=== PATIENT | female | born 1940 | race Caucasian/White ===

== ENCOUNTER → 2018-02-01 09:15 | Outpatient (CLI) | payer MEDICARE, SELFPAY ==
[2018-02-01 13:12] LABS: Absolute Neutrophil Count 3.2 X10^3/uL (2.0-7.7); Basophil# 0.03 X10^3/uL; Basophil% 0.5 % (0-1); Eosinophil# 0.25 X10^3/uL; Eosinophils% 4.4 % (0-5); Hemoglobin 13.1 g/dl (12.0-15.0); Mean Corp Hgb Conc 33.6 g/gl (32-36); Mean Corpuscular Hgb 31.7 pg (27.0-32.0); Mean Corpuscular Volume 94.4 fL (81-99); Mean Platelet Vol. 10.4 fl (6.2-12.0); Monocyte# 0.49 X10^3/uL; Monocyte% 8.7 % (0-10); Neutrophil # 3.17 X10^3/uL (2.7-7.7); POSITIVE COUNT NO; POSITIVE DIFFERENTIAL NO; POSITIVE MORPHOLOGY NO; Platelet Count 267 K/mm3 (150-450); RBC Distribution Width CV 12.1 % (11.6-14.6); Red Blood Count 4.13 M/mm3 (4.2-5.4); White Blood Count 5.7 K/mm3 (4.4-11.0)
[2018-02-01 13:46] LABS: ALB/GLOB Ratio 1.1 RATIO (0.9-2.4); AST(SGOT) 21 U/L (15-37); Alanine Aminotransfer ALT/SGPT 23 U/L (13-56); Albumin, Serum 3.7 g/dL (3.2-5.0); Alkaline Phosphatase 61 U/L (45-117); Anion Gap 8 (5-15); BUN 19 mg/dL (7-18); BUN/Creat Ratio 29.2 RATIO (10-20); Calcium,Total 8.5 mg/dL (8.5-10.1); Chloride 108 mmol/L (98-107); Creatinine, Serum 0.65 mg/dL (0.55-1.02); EST Glomerular Filtration Rate 93 mL/min (>60); Est Glom Filt Rate - Afr Amer 113 mL/min (>60); Globulin 3.4 g/dL (2.2-4.2); Glucose 84 mg/dL (74-106); Potassium 4.3 mmol/L (3.5-5.1); Protein, Total 7.1 g/dL (6.4-8.2); Sodium Level 143 mmol/L (136-145); Thyroid Stim Hormone (TSH) 1.55 uIU/mL (0.358-3.74); Vitamin D,25 Hydroxy 51.7 ng/mL (29.95-100.01)
== END ==
PROVIDERS: Family Provider Family Medicine Geriatric Medicine; PCP Family Medicine Geriatric Medicine; Visit Provider Family Medicine Geriatric Medicine
DX: I10 Essential (primary) hypertension (principal); E55.9 Vitamin D deficiency, unspecified
CPT/HCPCS: 36415; 80053; 82306; 84443; 85025

== ENCOUNTER → 2018-08-07 09:50 | Outpatient (CLI) | payer MEDICARE, SELFPAY ==
[2018-08-07 12:15] LABS: Absolute Lymphocyte Count 2.07 X10^3/ul (0.83-4.51); Absolute Neutrophil Count 2.7 X10^3/uL (2.0-7.7); Basophil# 0.02 X10^3/uL; Basophil% 0.4 % (0-1); Eosinophil# 0.29 X10^3/uL; Eosinophils% 5.2 % (0-5); Hemoglobin 13.7 g/dl (12.0-15.0); Lymphocyte # 2.07 X10^3/ul (4.0); Lymphocyte % 37.4 % (19-41); Mean Corp Hgb Conc 34.3 g/gl (32-36); Mean Corpuscular Hgb 32.2 pg (27.0-32.0); Mean Corpuscular Volume 94.1 fL (81-99); Mean Platelet Vol. 10.3 fl (6.2-12.0); Monocyte# 0.44 X10^3/uL; Monocyte% 7.9 % (0-10); Neutrophil # 2.71 X10^3/uL (2.7-7.7); Neutrophil % 48.9 % (47-70); Platelet Count 246 K/mm3 (150-450); RBC Distribution Width CV 12.5 % (11.6-14.6); RBC Distribution Width SD 42.1 fl (35.1-43.9); Red Blood Count 4.25 M/mm3 (4.2-5.4); White Blood Count 5.5 K/mm3 (4.4-11.0)
[2018-08-07 12:22] LABS: POSITIVE COUNT NO; POSITIVE DIFFERENTIAL NO; POSITIVE MORPHOLOGY NO
[2018-08-07 12:46] LABS: AST(SGOT) 19 U/L (15-37); Alanine Aminotransfer ALT/SGPT 21 U/L (13-56); Albumin, Serum 3.6 g/dL (3.2-5.0); Alkaline Phosphatase 57 U/L (45-117); Anion Gap 8 (5-15); BUN 18 mg/dL (7-18); BUN/Creat Ratio 25.3 RATIO (10-20); Calcium,Total 8.7 mg/dL (8.5-10.1); Chloride 108 mmol/L (98-107); Creatinine, Serum 0.71 mg/dL (0.55-1.02); EST Glomerular Filtration Rate 84 mL/min (>60); Est Glom Filt Rate - Afr Amer 101 mL/min (>60); Globulin 3.5 g/dL (2.2-4.2); Glucose 108 mg/dL (74-106); Potassium 3.8 mmol/L (3.5-5.1); Protein, Total 7.1 g/dL (6.4-8.2); Sodium Level 142 mmol/L (136-145)
[2018-08-07 12:48] LABS: Vitamin D,25 Hydroxy 54.9 ng/mL (29.95-100.01)
== END ==
PROVIDERS: Family Provider Family Medicine Geriatric Medicine; PCP Family Medicine Geriatric Medicine; Visit Provider Family Medicine Geriatric Medicine
DX: E55.9 Vitamin D deficiency, unspecified (principal); I10 Essential (primary) hypertension
CPT/HCPCS: 36415; 80053; 82306; 84443; 85025

== ENCOUNTER → 2019-02-05 11:31 | Outpatient (CLI) | payer MEDICARE, SELFPAY ==
[2019-02-05 12:48] LABS: Absolute Lymphocyte Count 1.58 X10^3/ul (0.83-4.51); Absolute Neutrophil Count 2.6 X10^3/uL (2.0-7.7); Basophil# 0.02 X10^3/uL; Basophil% 0.4 % (0-1); Eosinophil# 0.17 X10^3/uL; Eosinophils% 3.5 % (0-5); Hematocrit 37.5 % (37-47); Hemoglobin 12.6 g/dl (12.0-15.0); Lymphocyte # 1.58 X10^3/ul (4.0); Lymphocyte % 32.6 % (19-41); Mean Corp Hgb Conc 33.6 g/gl (32-36); Mean Corpuscular Hgb 31.4 pg (27.0-32.0); Mean Corpuscular Volume 93.5 fL (81-99); Mean Platelet Vol. 10.1 fl (6.2-12.0); Monocyte# 0.47 X10^3/uL; Monocyte% 9.7 % (0-10); Neutrophil % 53.6 % (47-70); Platelet Count 247 K/mm3 (150-450); RBC Distribution Width CV 12.7 % (11.6-14.6); RBC Distribution Width SD 43.4 fl (35.1-43.9); Red Blood Count 4.01 M/mm3 (4.2-5.4); White Blood Count 4.9 K/mm3 (4.4-11.0)
[2019-02-05 12:53] LABS: Vitamin D,25 Hydroxy 51.3 ng/mL (29.95-100.01)
[2019-02-05 12:54] LABS: POSITIVE COUNT NO; POSITIVE DIFFERENTIAL NO; POSITIVE MORPHOLOGY NO
[2019-02-05 13:10] LABS: ALB/GLOB Ratio 1.1 RATIO (0.9-2.4); AST(SGOT) 26 U/L (15-37); Alanine Aminotransfer ALT/SGPT 23 U/L (13-56); Albumin, Serum 3.6 g/dL (3.2-5.0); Alkaline Phosphatase 75 U/L (45-117); Anion Gap 4 (5-15); BUN 20 mg/dL (7-18); BUN/Creat Ratio 31.3 RATIO (10-20); Calcium,Total 8.8 mg/dL (8.5-10.1); Chloride 112 mmol/L (98-107); Creatinine, Serum 0.64 mg/dL (0.55-1.02); EST Glomerular Filtration Rate 95 mL/min (>60); Est Glom Filt Rate - Afr Amer 115 mL/min (>60); Globulin 3.2 g/dL (2.2-4.2); Glucose 71 mg/dL (74-106); Potassium 3.6 mmol/L (3.5-5.1); Protein, Total 6.8 g/dL (6.4-8.2); Sodium Level 145 mmol/L (136-145); Thyroid Stim Hormone (TSH) 1.61 uIU/mL (0.358-3.74)
== END ==
PROVIDERS: Family Provider Family Medicine Geriatric Medicine; PCP Family Medicine Geriatric Medicine; Referring Provider Family Medicine Geriatric Medicine; Visit Provider Family Medicine Geriatric Medicine
DX: R50.9 Fever, unspecified (principal); I10 Essential (primary) hypertension; E55.9 Vitamin D deficiency, unspecified
CPT/HCPCS: 36415; 80053; 82306; 84443; 85025; 87633

== ENCOUNTER → 2019-08-09 09:20 | Outpatient (CLI) | payer MEDICARE, SELFPAY ==
[2019-08-09 12:52] LABS: Absolute Lymphocyte Count 1.34 X10^3/uL (0.83-4.51); Absolute Neutrophil Count 3.1 X10^3/uL (2.0-7.7); Basophil# 0.03 X10^3/uL; Basophil% 0.6 % (0-1); Eosinophil# 0.09 X10^3/uL; Eosinophils% 1.8 % (0-5); Hematocrit 38.9 % (37-47); Hemoglobin 13.1 g/dL (12.0-15.0); Lymphocyte # 1.34 X10^3/ul (4.0); Lymphocyte % 27.3 % (19-41); Mean Corp Hgb Conc 33.7 g/dL (32-36); Mean Corpuscular Hgb 32.1 pg (27.0-32.0); Mean Corpuscular Volume 95.3 fL (81-99); Mean Platelet Vol. 10.3 fl (6.2-12.0); Monocyte# 0.31 X10^3/uL; Monocyte% 6.3 % (0-10); NRBC Flagged by Analyzer 0 % (0-5); Neutrophil # 3.13 X10^3/uL (2.7-7.7); Neutrophil % 63.8 % (47-70); Platelet Count 217 K/mm3 (150-450); RBC Distribution Width CV 12.1 % (11.6-14.6); RBC Distribution Width SD 42.5 fl (35.1-43.9); Red Blood Count 4.08 M/mm3 (4.2-5.4); White Blood Count 4.9 K/mm3 (4.4-11.0)
[2019-08-09 13:32] LABS: Vitamin D,25 Hydroxy 67.6 ng/mL (29.95-100.01)
[2019-08-09 13:40] LABS: ALB/GLOB Ratio 1.1 RATIO (0.9-2.4); AST(SGOT) 19 U/L (15-37); Alanine Aminotransfer ALT/SGPT 18 U/L (13-56); Albumin, Serum 3.6 g/dL (3.2-5.0); Alkaline Phosphatase 54 U/L (45-117); Anion Gap 7 (5-15); BUN 22 mg/dL (7-18); Calcium,Total 8.7 mg/dL (8.5-10.1); Chloride 111 mmol/L (98-107); Creatinine, Serum 0.79 mg/dL (0.55-1.02); EST Glomerular Filtration Rate 75 mL/min (>60); Est Glom Filt Rate - Afr Amer 90 mL/min (>60); Globulin 3.2 g/dL (2.2-4.2); Glucose 102 mg/dL (74-106); Potassium 3.8 mmol/L (3.5-5.1); Protein, Total 6.8 g/dL (6.4-8.2); Sodium Level 144 mmol/L (136-145); Thyroid Stim Hormone (TSH) 1.58 uIU/mL (0.358-3.74)
== END ==
PROVIDERS: Family Provider Family Medicine Geriatric Medicine; PCP Family Medicine Geriatric Medicine; Visit Provider Family Medicine Geriatric Medicine
DX: I10 Essential (primary) hypertension (principal); E55.9 Vitamin D deficiency, unspecified
CPT/HCPCS: 36415; 80053; 82306; 84443; 85025

== ENCOUNTER → 2020-11-20 10:57 | Outpatient (CLI) | payer MEDICARE, SELFPAY ==
[2020-11-20 12:09] LABS: Absolute Lymphocyte Count 1.63 X10^3/uL (0.83-4.51); Absolute Neutrophil Count 2.9 X10^3/uL (2.0-7.7); Basophil# 0.03 X10^3/uL; Basophil% 0.6 % (0-1); Eosinophil# 0.13 X10^3/uL; Eosinophils% 2.5 % (0-5); Hematocrit 38.1 % (37-47); Lymphocyte # 1.63 X10^3/ul (4.0); Lymphocyte % 31.8 % (19-41); Mean Corp Hgb Conc 34.1 g/dL (32-36); Mean Corpuscular Hgb 32.3 pg (27.0-32.0); Mean Corpuscular Volume 94.5 fL (81-99); Mean Platelet Vol. 10.6 fl (6.2-12.0); Monocyte# 0.43 X10^3/uL; Monocyte% 8.4 % (0-10); NRBC Flagged by Analyzer 0 % (0-5); Neutrophil % 56.7 % (47-70); Platelet Count 232 K/mm3 (150-450); Red Blood Count 4.03 M/mm3 (4.2-5.4); White Blood Count 5.1 K/mm3 (4.4-11.0)
[2020-11-20 12:47] LABS: ALB/GLOB Ratio 1.3 RATIO (0.9-2.4); AST(SGOT) 17 U/L (15-37); Alanine Aminotransfer ALT/SGPT 17 U/L (13-56); Albumin, Serum 3.8 g/dL (3.2-5.0); Alkaline Phosphatase 54 U/L (45-117); Anion Gap 8 (5-15); BUN 19 mg/dL (7-18); BUN/Creat Ratio 25.9 RATIO (10-20); Chloride 110 mmol/L (98-107); Creatinine, Serum 0.73 mg/dL (0.55-1.02); EST Glomerular Filtration Rate 81 mL/min (>60); Est Glom Filt Rate - Afr Amer 98 mL/min (>60); Globulin 2.9 g/dL (2.2-4.2); Glucose 79 mg/dL (74-106); Potassium 3.4 mmol/L (3.5-5.1); Protein, Total 6.7 g/dL (6.4-8.2); Sodium Level 142 mmol/L (136-145); Thyroid Stim Hormone (TSH) 1.65 uIU/mL (0.358-3.74)
== END ==
PROVIDERS: PCP Family Medicine Geriatric Medicine; Visit Provider Family Medicine Geriatric Medicine
DX: I10 Essential (primary) hypertension (principal); E55.9 Vitamin D deficiency, unspecified
CPT/HCPCS: 36415; 80053; 82306; 84443; 85025

== ENCOUNTER → 2021-06-17 10:47 | Outpatient (CLI) | payer MEDICARE, SELFPAY ==
[2021-06-17 11:24] LABS: Absolute Lymphocyte Count 1.59 X10^3/uL (0.83-4.51); Absolute Neutrophil Count 3.8 X10^3/uL (2.0-7.7); Basophil# 0.03 X10^3/uL; Basophil% 0.5 % (0-1); Eosinophil# 0.12 X10^3/uL; Hematocrit 40.8 % (37-47); Hemoglobin 13.7 g/dL (12.0-15.0); Lymphocyte # 1.59 X10^3/ul (0.83-4.51); Lymphocyte % 26.5 % (19-41); Mean Corp Hgb Conc 33.6 g/dL (32-36); Mean Corpuscular Hgb 31.8 pg (27.0-32.0); Mean Corpuscular Volume 94.7 fL (81-99); Mean Platelet Vol. 9.8 fl (6.2-12.0); Monocyte# 0.43 X10^3/uL; Monocyte% 7.2 % (0-10); NRBC Flagged by Analyzer 0 % (0-5); Neutrophil # 3.83 X10^3/uL (2.7-7.7); Neutrophil % 63.6 % (47-70); Platelet Count 234 K/mm3 (150-450); RBC Distribution Width CV 12.1 % (11.6-14.6); RBC Distribution Width SD 42.3 fl (35.1-43.9); Red Blood Count 4.31 M/mm3 (4.2-5.4)
[2021-06-17 12:03] LABS: Vitamin D,25 Hydroxy 45.4 ng/mL
[2021-06-17 12:08] LABS: ALB/GLOB Ratio 1.2 RATIO (0.9-2.4); AST(SGOT) 21 U/L (15-37); Alanine Aminotransfer ALT/SGPT 21 U/L (13-56); Albumin, Serum 3.8 g/dL (3.2-5.0); Alkaline Phosphatase 60 U/L (45-117); Anion Gap 6 (5-15); BUN 18 mg/dL (7-18); BUN/Creat Ratio 26.8 RATIO (10-20); Calcium,Total 8.9 mg/dL (8.5-10.1); Chloride 108 mmol/L (98-107); Creatinine, Serum 0.67 mg/dL (0.55-1.02); EST Glomerular Filtration Rate 89 mL/min (>60); Est Glom Filt Rate - Afr Amer 108 mL/min (>60); Globulin 3.2 g/dL (2.2-4.2); Glucose 101 mg/dL (74-106); Potassium 4.1 mmol/L (3.5-5.1); Sodium Level 140 mmol/L (136-145); Thyroid Stim Hormone (TSH) 1.48 uIU/mL (0.358-3.74)
== END ==
PROVIDERS: PCP Family Medicine Geriatric Medicine; Visit Provider Family Medicine Geriatric Medicine
DX: E55.9 Vitamin D deficiency, unspecified (principal); I10 Essential (primary) hypertension; E87.6 Hypokalemia
CPT/HCPCS: 36415; 80053; 82306; 84443; 85025

== ENCOUNTER 2021-12-16 09:05 | Outpatient (CLI) | payer MEDICARE, SELFPAY ==
[2021-12-16 12:07] LABS: Absolute Lymphocyte Count 2.17 X10^3/uL (0.83-4.51); Absolute Neutrophil Count 3.3 X10^3/uL (2.0-7.7); Basophil# 0.03 X10^3/uL; Basophil% 0.5 % (0-1); Eosinophil# 0.12 X10^3/uL; Hemoglobin 13.9 g/dL (12.0-15.0); Lymphocyte # 2.17 X10^3/ul (0.83-4.51); Lymphocyte % 35.9 % (19-41); Mean Corp Hgb Conc 34.8 g/dL (32-36); Mean Corpuscular Hgb 32.7 pg (27.0-32.0); Mean Corpuscular Volume 94.1 fL (81-99); Mean Platelet Vol. 9.9 fl (6.2-12.0); Monocyte# 0.45 X10^3/uL; Monocyte% 7.4 % (0-10); NRBC Flagged by Analyzer 0 % (0-5); Neutrophil # 3.26 X10^3/uL (2.7-7.7); Neutrophil % 53.9 % (47-70); Platelet Count 257 K/mm3 (150-450); RBC Distribution Width CV 11.9 % (11.6-14.6); RBC Distribution Width SD 41.1 fl (35.1-43.9); Red Blood Count 4.25 M/mm3 (4.2-5.4); White Blood Count 6.1 K/mm3 (4.4-11.0)
[2021-12-16 12:12] LABS: Vitamin D,25 Hydroxy 39.5 ng/mL
[2021-12-16 12:16] LABS: ALB/GLOB Ratio 1.2 RATIO (0.9-2.4); AST(SGOT) 23 U/L (15-37); Alanine Aminotransfer ALT/SGPT 19 U/L (13-56); Albumin, Serum 3.7 g/dL (3.2-5.0); Alkaline Phosphatase 59 U/L (45-117); Anion Gap 6 (5-15); BUN 19 mg/dL (7-18); BUN/Creat Ratio 23.5 RATIO (10-20); Calcium,Total 8.9 mg/dL (8.5-10.1); Chloride 107 mmol/L (98-107); Creatinine, Serum 0.81 mg/dL (0.55-1.02); EST Glomerular Filtration Rate 72 mL/min (>60); Est Glom Filt Rate - Afr Amer 87 mL/min (>60); Globulin 3.2 g/dL (2.2-4.2); Glucose 109 mg/dL (74-106); Potassium 3.8 mmol/L (3.5-5.1); Protein, Total 6.9 g/dL (6.4-8.2); Sodium Level 141 mmol/L (136-145); Thyroid Stim Hormone (TSH) 1.15 uIU/mL (0.358-3.74)
== END 2021-12-16 23:59 | disposition home or self-care (01) ==
LOC: POLAB3 09:06
PROVIDERS: PCP Family Medicine Geriatric Medicine; Visit Provider Family Medicine Geriatric Medicine
DX: I10 Essential (primary) hypertension (principal); E55.9 Vitamin D deficiency, unspecified
CPT/HCPCS: 36415; 80053; 82306; 84443; 85025

== ENCOUNTER → 2022-07-07 | Outpatient (CLI) | payer MEDICARE, SELFPAY ==
[2022-07-07 12:27] LABS: Absolute Lymphocyte Count 1.97 X10^3/uL (0.83-4.51); Absolute Neutrophil Count 2.7 X10^3/uL (2.0-7.7); Basophil# 0.03 X10^3/uL; Basophil% 0.6 % (0-1); Eosinophil# 0.15 X10^3/uL; Eosinophils% 2.8 % (0-5); Hematocrit 37.9 % (37-47); Hemoglobin 12.8 g/dL (12.0-15.0); Lymphocyte # 1.97 X10^3/ul (0.83-4.51); Lymphocyte % 36.6 % (19-41); Mean Corp Hgb Conc 33.8 g/dL (32-36); Mean Corpuscular Hgb 32.3 pg (27.0-32.0); Mean Corpuscular Volume 95.7 fL (81-99); Mean Platelet Vol. 10.2 fl (6.2-12.0); Monocyte# 0.47 X10^3/uL; Monocyte% 8.7 % (0-10); NRBC Flagged by Analyzer 0 % (0-5); Neutrophil # 2.74 X10^3/uL (2.7-7.7); Neutrophil % 50.9 % (47-70); Platelet Count 218 K/mm3 (150-450); RBC Distribution Width CV 11.8 % (11.6-14.6); RBC Distribution Width SD 41.6 fl (35.1-43.9); Red Blood Count 3.96 M/mm3 (4.2-5.4); White Blood Count 5.4 K/mm3 (4.4-11.0)
[2022-07-07 12:33] LABS: Vitamin D,25 Hydroxy 32.7 ng/mL
[2022-07-07 12:46] LABS: ALB/GLOB Ratio 1.2 RATIO (0.9-2.4); AST(SGOT) 18 U/L (15-37); Alanine Aminotransfer ALT/SGPT 17 U/L (13-56); Albumin, Serum 3.5 g/dL (3.2-5.0); Alkaline Phosphatase 50 U/L (45-117); Anion Gap 5 (5-15); BUN 17 mg/dL (7-18); BUN/Creat Ratio 21.9 RATIO (10-20); Calcium,Total 9.4 mg/dL (8.5-10.1); Chloride 109 mmol/L (98-107); Creatinine, Serum 0.78 mg/dL (0.55-1.02); EST Glomerular Filtration Rate 75 mL/min (>60); Est Glom Filt Rate - Afr Amer 91 mL/min (>60); Glucose 96 mg/dL (74-106); Potassium 3.7 mmol/L (3.5-5.1); Protein, Total 6.5 g/dL (6.4-8.2); Sodium Level 143 mmol/L (136-145); Thyroid Stim Hormone (TSH) 1.46 uIU/mL (0.358-3.74)
== END | disposition home or self-care (01) ==
LOC: POLAB3 09:23
PROVIDERS: PCP Family Medicine Geriatric Medicine; Visit Provider Family Medicine Geriatric Medicine
DX: E55.9 Vitamin D deficiency, unspecified (principal); I10 Essential (primary) hypertension
CPT/HCPCS: 36415; 80053; 82306; 84443; 85025

== ENCOUNTER → 2023-01-05 | Outpatient (CLI) | payer MEDICARE, SELFPAY ==
[2023-01-05 13:30] LABS: Absolute Neutrophil Count 2.9 X10^3/uL (2.0-7.7); Basophil# 0.03 X10^3/uL; Basophil% 0.6 % (0-1); Eosinophil# 0.14 X10^3/uL; Eosinophils% 2.7 % (0-5); Hemoglobin 13.3 g/dL (12.0-15.0); Lymphocyte % 34.1 % (19-41); Mean Corp Hgb Conc 33.3 g/dL (32-36); Mean Corpuscular Hgb 31.9 pg (27.0-32.0); Mean Corpuscular Volume 95.9 fL (81-99); Mean Platelet Vol. 9.8 fl (6.2-12.0); Monocyte# 0.42 X10^3/uL; NRBC Flagged by Analyzer 0 % (0-5); Neutrophil # 2.88 X10^3/uL (2.7-7.7); Neutrophil % 54.4 % (47-70); Platelet Count 249 K/mm3 (150-450); RBC Distribution Width CV 12.1 % (11.6-14.6); RBC Distribution Width SD 42.6 fl (35.1-43.9); Red Blood Count 4.17 M/mm3 (4.2-5.4); White Blood Count 5.3 K/mm3 (4.4-11.0)
[2023-01-05 13:38] LABS: Vitamin D,25 Hydroxy 72.3 ng/mL
[2023-01-05 13:51] LABS: ALB/GLOB Ratio 1.1 RATIO (0.9-2.4); AST(SGOT) 19 U/L (15-37); Alanine Aminotransfer ALT/SGPT 17 U/L (13-56); Albumin, Serum 3.5 g/dL (3.2-5.0); Alkaline Phosphatase 58 U/L (45-117); Anion Gap 7 (5-15); BUN 17 mg/dL (7-18); BUN/Creat Ratio 20.9 RATIO (10-20); Calcium,Total 9.1 mg/dL (8.5-10.1); Chloride 110 mmol/L (98-107); Creatinine, Serum 0.82 mg/dL (0.55-1.02); EST Glomerular Filtration Rate 71 mL/min (>60); Est Glom Filt Rate - Afr Amer 86 mL/min (>60); Globulin 3.2 g/dL (2.2-4.2); Glucose 94 mg/dL (74-106); Potassium 3.5 mmol/L (3.5-5.1); Protein, Total 6.7 g/dL (6.4-8.2); Sodium Level 144 mmol/L (136-145); Thyroid Stim Hormone (TSH) 2.12 uIU/mL (0.358-3.74)
== END | disposition home or self-care (01) ==
LOC: POLAB3 11:20
PROVIDERS: PCP Family Medicine Geriatric Medicine; Visit Provider Family Medicine Geriatric Medicine
DX: E55.9 Vitamin D deficiency, unspecified (principal); I10 Essential (primary) hypertension
CPT/HCPCS: 36415; 80053; 82306; 84443; 85025

== ENCOUNTER → 2023-07-13 | Outpatient (CLI) | payer MEDICARE, SELFPAY ==
[2023-07-13 12:21] LABS: Absolute Lymphocyte Count 1.84 X10^3/uL (0.83-4.51); Basophil# 0.04 X10^3/uL; Basophil% 0.7 % (0-1); Eosinophil# 0.15 X10^3/uL; Eosinophils% 2.7 % (0-5); Hematocrit 37.8 % (37-47); Hemoglobin 12.3 g/dL (12.0-15.0); Lymphocyte # 1.84 X10^3/ul (0.83-4.51); Lymphocyte % 33.4 % (19-41); Mean Corp Hgb Conc 32.5 g/dL (32-36); Mean Corpuscular Hgb 31.5 pg (27.0-32.0); Mean Corpuscular Volume 96.7 fL (81-99); Mean Platelet Vol. 9.9 fl (6.2-12.0); Monocyte# 0.47 X10^3/uL; Monocyte% 8.5 % (0-10); NRBC Flagged by Analyzer 0 % (0-5); Neutrophil % 54.5 % (47-70); Platelet Count 231 K/mm3 (150-450); RBC Distribution Width CV 12.5 % (11.6-14.6); RBC Distribution Width SD 43.7 fl (35.1-43.9); Red Blood Count 3.91 M/mm3 (4.2-5.4); White Blood Count 5.5 K/mm3 (4.4-11.0)
[2023-07-13 13:01] LABS: Vitamin D,25 Hydroxy 79.8 ng/mL
[2023-07-13 13:07] LABS: ALB/GLOB Ratio 1.1 RATIO (0.9-2.4); AST(SGOT) 18 U/L (15-37); Alanine Aminotransfer ALT/SGPT 19 U/L (13-56); Albumin, Serum 3.4 g/dL (3.2-5.0); Alkaline Phosphatase 50 U/L (45-117); Anion Gap 4 (5-15); BUN 13 mg/dL (7-18); BUN/Creat Ratio 18.7 RATIO (10-20); Calcium,Total 8.8 mg/dL (8.5-10.1); Chloride 111 mmol/L (98-107); EST Glomerular Filtration Rate 85 mL/min (>60); Est Glom Filt Rate - Afr Amer 103 mL/min (>60); Globulin 3.2 g/dL (2.2-4.2); Glucose 100 mg/dL (74-106); Potassium 3.9 mmol/L (3.5-5.1); Protein, Total 6.6 g/dL (6.4-8.2); Sodium Level 141 mmol/L (136-145); Thyroid Stim Hormone (TSH) 2.17 uIU/mL (0.358-3.74)
== END | disposition home or self-care (01) ==
PROVIDERS: PCP Family Medicine Geriatric Medicine; Visit Provider Family Medicine Geriatric Medicine
DX: E55.9 Vitamin D deficiency, unspecified (principal); I10 Essential (primary) hypertension
CPT/HCPCS: 36415; 80053; 82306; 84443; 85025

== ENCOUNTER → 2024-02-13 | Outpatient (CLI) | payer MEDICARE, SELFPAY ==
[2024-02-13 15:47] LABS: Absolute Lymphocyte Count 1.78 X10^3/uL (0.83-4.51); Absolute Neutrophil Count 3.2 X10^3/uL (2.0-7.7); Basophil# 0.04 X10^3/uL; Basophil% 0.7 % (0-1); Eosinophil# 0.22 X10^3/uL; Eosinophils% 3.9 % (0-5); Hemoglobin 12.6 g/dL (12.0-15.0); Lymphocyte # 1.78 X10^3/ul (0.83-4.51); Lymphocyte % 31.7 % (19-41); Mean Corp Hgb Conc 34.1 g/dL (32-36); Mean Corpuscular Volume 93.9 fL (81-99); Mean Platelet Vol. 9.5 fl (6.2-12.0); Monocyte# 0.36 X10^3/uL; Monocyte% 6.4 % (0-10); NRBC Flagged by Analyzer 0 % (0-5); Neutrophil # 3.21 X10^3/uL (2.7-7.7); Neutrophil % 57.1 % (47-70); Platelet Count 243 K/mm3 (150-450); RBC Distribution Width CV 12.2 % (11.6-14.6); RBC Distribution Width SD 42.6 fl (35.1-43.9); Red Blood Count 3.94 M/mm3 (4.2-5.4); White Blood Count 5.6 K/mm3 (4.4-11.0)
[2024-02-13 16:24] LABS: Vitamin D,25 Hydroxy 78.6 ng/mL
[2024-02-13 16:32] LABS: ALB/GLOB Ratio 1.1 RATIO (0.9-2.4); AST(SGOT) 17 U/L (15-37); Alanine Aminotransfer ALT/SGPT 13 U/L (13-56); Albumin, Serum 3.4 g/dL (3.2-5.0); Alkaline Phosphatase 56 U/L (45-117); Anion Gap 4 (5-15); BUN 17 mg/dL (7-18); BUN/Creat Ratio 18.7 RATIO (10-20); Calcium,Total 9.2 mg/dL (8.5-10.1); Chloride 111 mmol/L (98-107); Cholesterol 228 mg/dL (200); Creatinine, Serum 0.91 mg/dL (0.55-1.02); EST Glomerular Filtration Rate 62 mL/min (>60); Est Glom Filt Rate - Afr Amer 75 mL/min (>60); Globulin 3.1 g/dL (2.2-4.2); Glucose 105 mg/dL (74-106); High Density Lipoprotein 56 mg/dL; Protein, Total 6.5 g/dL (6.4-8.2); Sodium Level 143 mmol/L (136-145); Thyroid Stim Hormone (TSH) 1.38 uIU/mL (0.358-3.74); Triglycerides 123 mg/dL; Very Low Density Lipoprotein 25 mg/dL (5-40)
== END | disposition home or self-care (01) ==
LOC: LAB 15:09
PROVIDERS: PCP Family Medicine Geriatric Medicine; Referring Provider Family Medicine Geriatric Medicine; Visit Provider Family Medicine Geriatric Medicine
DX: I10 Essential (primary) hypertension (principal); E55.9 Vitamin D deficiency, unspecified; E78.5 Hyperlipidemia, unspecified
CPT/HCPCS: 36415; 80053; 80061; 82306; 84443; 85025

== ENCOUNTER → 2024-08-02 | Outpatient (CLI) | payer MEDICARE, SELFPAY ==
[2024-08-02 12:03] LABS: Absolute Lymphocyte Count 2.89 X10^3/uL (0.83-4.51); Absolute Neutrophil Count 3.5 X10^3/uL (2.0-7.7); Basophil# 0.05 X10^3/uL; Basophil% 0.7 % (0-1); Eosinophil# 0.12 X10^3/uL; Eosinophils% 1.7 % (0-5); Hematocrit 40.4 % (37-47); Hemoglobin 13.6 g/dL (12.0-15.0); Lymphocyte # 2.89 X10^3/ul (0.83-4.51); Lymphocyte % 40.5 % (19-41); Mean Corp Hgb Conc 33.7 g/dL (32-36); Mean Corpuscular Hgb 31.9 pg (27.0-32.0); Mean Corpuscular Volume 94.8 fL (81-99); Mean Platelet Vol. 9.8 fl (6.2-12.0); Monocyte# 0.51 X10^3/uL; Monocyte% 7.2 % (0-10); NRBC Flagged by Analyzer 0 % (0-5); Neutrophil # 3.54 X10^3/uL (2.7-7.7); Neutrophil % 49.6 % (47-70); Platelet Count 264 K/mm3 (150-450); RBC Distribution Width CV 12.7 % (11.6-14.6); Red Blood Count 4.26 M/mm3 (4.2-5.4); White Blood Count 7.1 K/mm3 (4.4-11.0)
[2024-08-02 12:33] LABS: ALB/GLOB Ratio 1.1 RATIO (0.9-2.4); AST(SGOT) 16 U/L (15-37); Alanine Aminotransfer ALT/SGPT 13 U/L (13-56); Albumin, Serum 3.7 g/dL (3.2-5.0); Alkaline Phosphatase 64 U/L (45-117); Anion Gap 5 (5-15); BUN 24 mg/dL (7-18); BUN/Creat Ratio 29.6 RATIO (10-20); Calcium,Total 9.3 mg/dL (8.5-10.1); Chloride 112 mmol/L (98-107); Cholesterol 249 mg/dL (200); Creatinine, Serum 0.81 mg/dL (0.55-1.02); EST Glomerular Filtration Rate 71 mL/min (>60); Est Glom Filt Rate - Afr Amer 86 mL/min (>60); Globulin 3.3 g/dL (2.2-4.2); Glucose 104 mg/dL (74-106); High Density Lipoprotein 73 mg/dL; Potassium 3.7 mmol/L (3.5-5.1); Sodium Level 143 mmol/L (136-145); Triglycerides 166 mg/dL; Very Low Density Lipoprotein 33 mg/dL (5-40)
[2024-08-03 10:59] LABS: Vitamin D,25 Hydroxy 79.3 ng/mL
== END | disposition home or self-care (01) ==
LOC: POLAB3 11:49
PROVIDERS: PCP Family Medicine Geriatric Medicine; Visit Provider Family Medicine Geriatric Medicine
DX: I10 Essential (primary) hypertension (principal); E55.9 Vitamin D deficiency, unspecified; E78.5 Hyperlipidemia, unspecified
CPT/HCPCS: 36415; 80053; 80061; 82306; 84443; 85025

== ENCOUNTER → 2025-02-13 | Outpatient (CLI) | payer MEDICARE, SELFPAY ==
[2025-02-13 14:23] LABS: Absolute Lymphocyte Count 1.95 X10^3/uL (0.83-4.51); Absolute Neutrophil Count 4.7 X10^3/uL (2.0-7.7); Basophil# 0.04 X10^3/uL; Basophil% 0.5 % (0-1); Eosinophil# 0.14 X10^3/uL; Eosinophils% 1.9 % (0-5); Hematocrit 36.4 % (37-47); Hemoglobin 12.7 g/dL (12.0-15.0); Lymphocyte # 1.95 X10^3/ul (0.83-4.51); Lymphocyte % 26.7 % (19-41); Mean Corp Hgb Conc 34.9 g/dL (32-36); Mean Corpuscular Hgb 32.9 pg (27.0-32.0); Mean Corpuscular Volume 94.3 fL (81-99); Mean Platelet Vol. 9.7 fl (6.2-12.0); Monocyte# 0.44 X10^3/uL; NRBC Flagged by Analyzer 0 % (0-5); Neutrophil # 4.69 X10^3/uL (2.7-7.7); Neutrophil % 64.4 % (47-70); Platelet Count 240 K/mm3 (150-450); RBC Distribution Width CV 12.5 % (11.6-14.6); RBC Distribution Width SD 43.4 fl (35.1-43.9); Red Blood Count 3.86 M/mm3 (4.2-5.4); White Blood Count 7.3 K/mm3 (4.4-11.0)
[2025-02-13 19:03] LABS: AST(SGOT) 22 U/L (<=31); Alanine Aminotransfer ALT/SGPT 11 U/L (<=34); Alkaline Phosphatase 56 U/L (35-104); Calcium,Total 9.4 mg/dL (7.6-11.0); Carbon Dioxide 22.3 mmol/L (21.0-32.0); EST Glomerular Filtration Rate 57 (>60); Vitamin D,25 Hydroxy 87.1 ng/mL (30-100)
[2025-02-13 19:27] LABS: ALB/GLOB Ratio 1.7 RATIO (0.9-2.4); Anion Gap 14 (5-15); BUN 13 mg/dL (4-19); BUN/Creat Ratio 14.1 RATIO (10-20); Chloride 108 mmol/L (98-108); Cholesterol 230 mg/dL (<=200); Creatinine, Serum 0.92 mg/dL (0.70-1.20); Globulin 2.3 g/dL (2.2-4.2); Glucose 95 mg/dL (70-99); High Density Lipoprotein 58 mg/dL; Low Density Lipoprotein Calc. 151 mg/dL; Potassium 4.3 mmol/L (3.3-5.1); Protein, Total 6.3 g/dL (5.9-8.4); Sodium Level 144 mmol/L (133-145); Triglycerides 109 mg/dL; Very Low Density Lipoprotein 22 mg/dL (5-40); cholesterol:hdl ratio screen 3.99
== END | disposition home or self-care (01) ==
LOC: LAB 13:51
PROVIDERS: PCP Family Medicine Geriatric Medicine; Referring Provider Family Medicine Geriatric Medicine; Visit Provider Family Medicine Geriatric Medicine
DX: I10 Essential (primary) hypertension (principal); E55.9 Vitamin D deficiency, unspecified; E78.5 Hyperlipidemia, unspecified
CPT/HCPCS: 36415; 80053; 80061; 82306; 84443; 85025

== ENCOUNTER 2025-04-25 21:45 | Inpatient (IN) | payer MEDICARE, SELFPAY ==
[2025-04-25 21:46] VITALS: BP 154/71; PULSE 68; RESP 14; TEMP 36.6; O2SAT 100; BMI 21.5
--- NOTE | 2025-04-25 22:20 | CT_ITS ---
PROCEDURE: BRAIN/HEAD WITHOUT CONTRAST 04/25/2025 REASON FOR EXAM: INJURY TECHNIQUE: BRAIN/HEAD WITHOUT CONTRAST Coronal and Sagittal reconstruction series were provided. One or more dose reduction techniques were used (e.g., Automated exposure control, adjustment of the mA and/or kV according to patient size, use of iterative reconstruction technique. RADIATION DOSE SUMMARY: CTDlvol: 44.99 mGy DLP: 779.24 mGycm COMPARISON: None. FINDINGS: No acute intracranial hemorrhage, extra-axial collection, mass effect or acute territorial infarct. Moderate-advanced generalized brain parenchymal volume loss, and chronic small- vessel ischemic changes. Atherosclerotic calcification of the intracranial vasculature. Absent [place] ocular lenses. Large right frontal scalp hematoma/contusion. No underlying acute calvarial or skull base fracture. No radiodense foreign body. Well-aerated paranasal sinuses and bilateral mastoid air cells. Mild rightward nasal septal deviation with a left jacki bullosa. CT/Brain/Head without Contrast IMPRESSION: 1. No acute intracranial abnormality. 2. Large right frontal scalp hematoma/contusion. No calvarial fracture. 3. Moderate-advanced volume loss and chronic small-vessel ischemic changes. Reading Location: [id number]
--- NOTE | 2025-04-25 22:20 | CT_ITS ---
PROCEDURE: BRAIN/HEAD WITHOUT CONTRAST 04/25/2025 REASON FOR EXAM: INJURY TECHNIQUE: BRAIN/HEAD WITHOUT CONTRAST Coronal and Sagittal reconstruction series were provided. One or more dose reduction techniques were used (e.g., Automated exposure control, adjustment of the mA and/or kV according to patient size, use of iterative reconstruction technique. RADIATION DOSE SUMMARY: CTDlvol: 44.99 mGy DLP: 779.24 mGycm COMPARISON: None. FINDINGS: No acute intracranial hemorrhage, extra-axial collection, mass effect or acute territorial infarct. Moderate-advanced generalized brain parenchymal volume loss, and chronic small- vessel ischemic changes. Atherosclerotic calcification of the intracranial vasculature. Absent [place] ocular lenses. Large right frontal scalp hematoma/contusion. No underlying acute calvarial or skull base fracture. No radiodense foreign body. Well-aerated paranasal sinuses and bilateral mastoid air cells. Mild rightward nasal septal deviation with a left jacki bullosa. CT/Brain/Head without Contrast IMPRESSION: 1. No acute intracranial abnormality. 2. Large right frontal scalp hematoma/contusion. No calvarial fracture. 3. Moderate-advanced volume loss and chronic small-vessel ischemic changes. Reading Location: [id number]
--- NOTE | 2025-04-25 22:30 | RAD_ITS ---
PROCEDURE: HUMERUS MIN 2 VIEWS 04/25/2025 REASON FOR EXAM: INJURY TECHNIQUE: HUMERUS MIN 2 VIEWS COMPARISON: None. FINDINGS: Acute mildly comminuted and impacted fracture of the left humeral head and surgical neck, with nondisplaced fracture involving the greater tuberosity. No dislocation. Left glenohumeral and AC joints are intact. Qualitative osteopenia. No aggressive osseous lesion. Soft tissue swelling about the left shoulder. RAD/Humerus min 2 Views IMPRESSION: Acute comminuted and impacted fracture of the left humeral head and surgical ne ck. Reading Location: [id number]
--- NOTE | 2025-04-25 22:30 | RAD_ITS ---
PROCEDURE: HUMERUS MIN 2 VIEWS 04/25/2025 REASON FOR EXAM: INJURY TECHNIQUE: HUMERUS MIN 2 VIEWS COMPARISON: None. FINDINGS: Acute mildly comminuted and impacted fracture of the left humeral head and surgical neck, with nondisplaced fracture involving the greater tuberosity. No dislocation. Left glenohumeral and AC joints are intact. Qualitative osteopenia. No aggressive osseous lesion. Soft tissue swelling about the left shoulder. RAD/Humerus min 2 Views IMPRESSION: Acute comminuted and impacted fracture of the left humeral head and surgical ne ck. Reading Location: [id number]
--- NOTE | 2025-04-25 22:30 | RAD_ITS ---
PROCEDURE: HUMERUS MIN 2 VIEWS 04/25/2025 REASON FOR EXAM: INJURY TECHNIQUE: HUMERUS MIN 2 VIEWS COMPARISON: None. FINDINGS: Acute transversely oriented impacted fracture of the right proximal humeral surgical neck, with mild superior migration. No definite fracture of the humeral head is seen. No dislocation, right glenohumeral and AC joints appear intact. Qualitative osteopenia. Soft tissue swelling about the right shoulder. RAD/Humerus min 2 Views IMPRESSION: Acute impacted and superiorly migrated fracture of the right proximal humerus s urgical neck. Reading Location: [id number]
--- NOTE | 2025-04-25 22:30 | RAD_ITS ---
PROCEDURE: HUMERUS MIN 2 VIEWS 04/25/2025 REASON FOR EXAM: INJURY TECHNIQUE: HUMERUS MIN 2 VIEWS COMPARISON: None. FINDINGS: Acute transversely oriented impacted fracture of the right proximal humeral surgical neck, with mild superior migration. No definite fracture of the humeral head is seen. No dislocation, right glenohumeral and AC joints appear intact. Qualitative osteopenia. Soft tissue swelling about the right shoulder. RAD/Humerus min 2 Views IMPRESSION: Acute impacted and superiorly migrated fracture of the right proximal humerus s urgical neck. Reading Location: [id number]
--- NOTE | 2025-04-25 23:40 | HP.PCM.HOS_ITS ---
HPI - General General Date of Admission: 04/25/25 Date of Service: 04/25/25 Chief Complaint: Fall with bilateral shoulder pain HPI Narrative ASHLEY KRAUSE, is a 85 F who presented to [facility] ED on 04/25/2025 with bilateral shoulder pain after a fall at home. Patient lives at home alone, has good functional status at baseline. She unfortunately had a mechanical fall at the house tonight and when she went to catch herself she hurt both shoulders. Humerus x-ray showed bilateral humeral head/surgical neck fractures. CT brain showed a large right frontal scalp hematoma/contusion but was otherwise unremarkable. Patient has minimal medical history, takes only atenolol at home. Vitals normal in the ED and CBC and BMP were benign. ED physician discussed case with Dr. Watler who recommended sling placement on both arms and no need for surgical intervention. Hospitalist was then contacted for admission. I saw the patient at bedside in the ED, patient's brother and daughter were present. Patient was laying back fairly comfortably in bed in no acute distress. She had been given doses of IV morphine and IV fentanyl for pain with moderate relief of pain at rest. However she does continue to have significant pain with much of any movement. She is mentally sharp for age and answering questions appropriately. No other acute concerns at this time. Will be admitted for further management. [facility] Medical History (Updated 04/26/25 @ 02:[address] Luis Johnson, ) Mitral valve prolapse Home Medications ?Medication ?Instructions ?Recorded ?Last Taken ?Type atenolol 25 mg tablet 25 mg PO DAILY 04/25/25 Unkn own History Allergy/AdvReac Type Severity Reaction Status Date / Time Sulfa (Sulfonamide Allergy UNKNOWN Verified 04/25/25 21:47 Antibiotics) Social History Smoking Status: Never smoker ROS Constitutional Constitutional: Denies chills, fatigue or fever(s) Eyes Eyes: Denies change in vision Cardiovascular Cardiovascular: Denies chest pain Respiratory/Chest Respiratory/Chest: Denies shortness of breath at rest Gastrointestinal Gastrointestinal: Denies abdominal pain Musculoskeletal Musculoskeletal: Reports joint pain Neurologic Neurologic: Denies dizziness or headache(s) Vital Signs Vital Signs Vital Signs: 04/25/25 21:46 Temperature 98 F Temperature Source Oral Pulse Rate 68 Respiratory Rate 14 Blood Pressure 154/71 H Blood Pressure Mean 98 Pulse Ox 100 Oxygen Delivery Method Room Air Weight Weight: 55.1 kg Body Mass Index (BMI) 21.5 Physical Exam Const alert, oriented x3, no apparent distress and average body habitus Constitutional Narrative: Elderly female, mentally sharp for age, laying back in bed fairly comfortably, conversing normally, in no acute distress. General Appearance: cooperative and comfortable HEENT normocephalic, hearing grossly normal bilaterally, nasal mucous membranes and turbinates normal and moist oral mucous membranes HEENT Narrative: Scalp hematoma noted. Eyes PERRL, EOMs intact bilaterally and conjunctivae normal Eyes Narrative: Left eye blindness noted. Neck full ROM Chest inspection of chest normal Resp normal respiratory effort, normal air movement, no use of accessory muscles and clear to auscultation bilaterally Cardio regular rate, regular rhythm, no murmurs and peripheral pulses 2+ throughout GI normal to inspection, nondistended, normoactive bowel sounds, soft to palpation, non-tender and non-distended Back/Spine normal ROM Extremity Extremity Narrative: Tenderness to palpation in bilateral upper arms or shoulder areas. Did not attempt range of motion. Psych mental status grossly normal Results Lab / Micro Data 04/25/25 21:50 04/25/25 23:56 Imaging Radiology Impression Brain CT 04/25/25 22:20 IMPRESSION: 1. No acute intracranial abnormality. 2. Large right frontal scalp hematoma/contusion. No calvarial fracture. 3. Moderate-advanced volume loss and chronic small-vessel ischemic changes. Reading Location: [facility] Humerus X-Ray 04/25/25 22:30 IMPRESSION: Acute impacted and superiorly migrated fracture of the right proximal humerus surgical neck. Reading Location: [facility] Humerus X-Ray 04/25/25 22:30 IMPRESSION: Acute comminuted and impacted fracture of the left humeral head and surgical neck. Reading Location: [facility] Assessment & Plan Assessment/Plan (1) Bilateral proximal humeral fractures: (2) Physical debility: PLAN: Plan Patient is an 85-year-old female who presented to [facility] ED on 04/25/2025 with bilateral arm pain after a fall at home. 1. Mechanical fall with bilateral humerus fractures and acute debility ? Admit under inpatient status to [facility]. PT/OT/case management consulted. X- rays on admit showed bilateral humeral head/surgical neck fractures. Case discussed w/ Dr. Walter who recommended bilateral slings and no need for surgical management. Pain control with scheduled Tylenol, oxycodone as needed and IV morphine as needed. Suspect patient will require SNF placement on discharge. 2. Hypertension ? Continue home atenolol. DVT prophylaxis: Lovenox CODE STATUS: Full code, verified Expected disposition: TBD Total clinical time spent by myself addressing the patient's medical issues, reviewing all the data, and collaborating with patient's care team: 55 minutes. Charges/Coding Visit Charges Inpatient E&M: 95223 Init Hosp L2
--- NOTE | 2025-04-25 23:40 | HP.PCM.HOS_ITS ---
HPI - General General Date of Admission: 04/25/25 Date of Service: 04/25/25 Chief Complaint: Fall with bilateral shoulder pain HPI Narrative ASHLEY KRUASE, is a 85 F who presented to [facility] ED on 04/25/2025 with bilateral shoulder pain after a fall at home. Patient lives at home alone, has good functional status at baseline. She unfortunately had a mechanical fall at the house tonight and when she went to catch herself she hurt both shoulders. Humerus x-ray showed bilateral humeral head/surgical neck fractures. CT brain showed a large right frontal scalp hematoma/contusion but was otherwise unremarkable. Patient has minimal medical history, takes only atenolol at home. Vitals normal in the ED and CBC and BMP were benign. ED physician discussed case with Dr. Walter who recommended sling placement on both arms and no need for surgical intervention. Hospitalist was then contacted for admission. I saw the patient at bedside in the ED, patient's brother and daughter were present. Patient was laying back fairly comfortably in bed in no acute distress. She had been given doses of IV morphine and IV fentanyl for pain with moderate relief of pain at rest. However she does continue to have significant pain with much of any movement. She is mentally sharp for age and answering questions appropriately. No other acute concerns at this time. Will be admitted for further management. [facility] Medical History (Updated 04/26/25 @ 02:[address] Luis Johnson, ) Mitral valve prolapse Home Medications ?Medication ?Instructions ?Recorded ?Last Taken ?Type atenolol 25 mg tablet 25 mg PO DAILY 04/25/25 Unkn own History Allergy/AdvReac Type Severity Reaction Status Date / Time Sulfa (Sulfonamide Allergy UNKNOWN Verified 04/25/25 21:47 Antibiotics) Social History Smoking Status: Never smoker ROS Constitutional Constitutional: Denies chills, fatigue or fever(s) Eyes Eyes: Denies change in vision Cardiovascular Cardiovascular: Denies chest pain Respiratory/Chest Respiratory/Chest: Denies shortness of breath at rest Gastrointestinal Gastrointestinal: Denies abdominal pain Musculoskeletal Musculoskeletal: Reports joint pain Neurologic Neurologic: Denies dizziness or headache(s) Vital Signs Vital Signs Vital Signs: 04/25/25 21:46 Temperature 98 F Temperature Source Oral Pulse Rate 68 Respiratory Rate 14 Blood Pressure 154/71 H Blood Pressure Mean 98 Pulse Ox 100 Oxygen Delivery Method Room Air Weight Weight: 55.1 kg Body Mass Index (BMI) 21.5 Physical Exam Const alert, oriented x3, no apparent distress and average body habitus Constitutional Narrative: Elderly female, mentally sharp for age, laying back in bed fairly comfortably, conversing normally, in no acute distress. General Appearance: cooperative and comfortable HEENT normocephalic, hearing grossly normal bilaterally, nasal mucous membranes and turbinates normal and moist oral mucous membranes HEENT Narrative: Scalp hematoma noted. Eyes PERRL, EOMs intact bilaterally and conjunctivae normal Eyes Narrative: Left eye blindness noted. Neck full ROM Chest inspection of chest normal Resp normal respiratory effort, normal air movement, no use of accessory muscles and clear to auscultation bilaterally Cardio regular rate, regular rhythm, no murmurs and peripheral pulses 2+ throughout GI normal to inspection, nondistended, normoactive bowel sounds, soft to palpation, non-tender and non-distended Back/Spine normal ROM Extremity Extremity Narrative: Tenderness to palpation in bilateral upper arms or shoulder areas. Did not attempt range of motion. Psych mental status grossly normal Results Lab / Micro Data 04/25/25 21:50 04/25/25 23:56 Imaging Radiology Impression Brain CT 04/25/25 22:20 IMPRESSION: 1. No acute intracranial abnormality. 2. Large right frontal scalp hematoma/contusion. No calvarial fracture. 3. Moderate-advanced volume loss and chronic small-vessel ischemic changes. Reading Location: [facility] Humerus X-Ray 04/25/25 22:30 IMPRESSION: Acute impacted and superiorly migrated fracture of the right proximal humerus surgical neck. Reading Location: [facility] Humerus X-Ray 04/25/25 22:30 IMPRESSION: Acute comminuted and impacted fracture of the left humeral head and surgical neck. Reading Location: [facility] Assessment & Plan Assessment/Plan (1) Bilateral proximal humeral fractures: (2) Physical debility: PLAN: Plan Patient is an 85-year-old female who presented to [facility] ED on 04/25/2025 with bilateral arm pain after a fall at home. 1. Mechanical fall with bilateral humerus fractures and acute debility ? Admit under inpatient status to [facility]. PT/OT/case management consulted. X- rays on admit showed bilateral humeral head/surgical neck fractures. Case discussed w/ Dr. Walter who recommended bilateral slings and no need for surgical management. Pain control with scheduled Tylenol, oxycodone as needed and IV morphine as needed. Suspect patient will require SNF placement on discharge. 2. Hypertension ? Continue home atenolol. DVT prophylaxis: Lovenox CODE STATUS: Full code, verified Expected disposition: TBD Total clinical time spent by myself addressing the patient's medical issues, reviewing all the data, and collaborating with patient's care team: 55 minutes. Charges/Coding Visit Charges Inpatient E&M: 89843 Init Hosp L2
--- NOTE | 2025-04-25 23:41 | EDS_ITS ---
HPI History of Present Illness Chief Complaint: Dislocation Narrative Narrative: Patient is a 85-year-old female with history of mitral valve prolapse. She states roughly an hour prior to arrival she tripped over a box walking through her house and she fell forward. She states she put out her arms in order to try and braced herself. However she states that as she fell she sustained pain to both the right and left shoulder/upper arm region and also struck her head. She denies any loss of consciousness history of bleeding disorder or blood thinner use. She states she was able to get back up following the fall but has had persistent and worsening pain in both arms. She states she can also not move her arm secondary to the injuries and therefore presents for evaluation. [facility] Medical History (Updated 04/26/25 @ 06:[address] Urban Hoyt DO) Mitral valve prolapse Home Medications ?Medication ?Instructions ?Recorded ?Last Taken ?Type atenolol 25 mg tablet 25 mg PO DAILY 04/25/25 Unkn own History Allergy/AdvReac Type Severity Reaction Status Date / Time Sulfa (Sulfonamide Allergy UNKNOWN Verified 04/25/25 21:47 Antibiotics) Social History Smoking Status: Never smoker [facility] ED Constitutional Constitutional ED: Denies chills or fever(s) Eyes Eyes: Denies change in vision ENT ENT ED: Denies sore throat Cardiovascular Cardiovascular: Reports other Details: Negative syncope ; Denies chest pain Respiratory/Chest Respiratory/Chest: Denies cough or dyspnea Gastrointestinal Gastrointestinal: Denies abdominal pain, diarrhea, nausea or vomiting Musculoskeletal Musculoskeletal: Reports other Details: Positive bilateral upper arm/shoulder pain ; Denies neck pain Integumentary Reports other Details: Positive swelling right forehead Neurologic Neurologic: Denies headache(s) Hematologic/Lymphatic Hematologic/Lymphatic: Denies easy bleeding or easy bruising EXAM Physical Exam Const Vital Signs: 04/25/25 21:46 Temperature 98 F Temperature Source Oral Pulse Rate 68 Respiratory Rate 14 Blood Pressure 154/71 H Blood Pressure Mean 98 Pulse Ox 100 Oxygen Delivery Method Room Air Positive well nourished and well developed General Appearance ED: well developed HEENT HEENT Narrative: There is a large 3 x 3 hematoma to the right sided portion of the frontal bone/forehead consistent with fall Otherwise no signs of depressed or basilar skull fracture Eyes Eyes Narrative: Right eye responds to light and has normal extraocular motions. 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 Neck supple Neck Narrative: No bony deformity or step-off of the cervical spine no midline tenderness to palpation Chest Wall palpation of chest normal Chest Narrative: No bony deformity or subcutaneous emphysema Resp normal respiratory effort and clear to auscultation bilaterally Cardio regular rate and regular rhythm GI normal to inspection, nondistended, normoactive bowel sounds, non-tender, non- distended and no masses GI Narrative: No voluntary guarding or rigidity or pulsatile mass Auscultation: normoactive bowel sounds Palpation: soft Back/Spine Back/Spine Narrative: No bony deformity or step-off of the thoracic or lumbar spine Extremity Extremity Narrative: Pelvis is stable there is no shortening or external rotation of either lower extremity There is no obvious sulcus sign present to the bilateral shoulders or obvious joint effusion. There is significant pain on palpation in the proximal humerus bilaterally. Active and passive range of motion is extremely limited secondary to pain. All compartments are soft and compressible going against compartment syndrome. Bilateral upper extremities are neurovascularly intact Neuro oriented x3 and CN's II-XII intact bilaterally Sensorium / Orientation: alert Psych mental status grossly normal Skin no rashes or lesions noted and no wounds MDM MDM MDM Narrative Medical decision making narrative: Patient arrived to the ER with stable vitals and reported a mechanical fall so therefore he felt no need for cardiac or syncope workup. As she struck her head there is concern for skull fracture versus traumatic subarachnoid and subdural hemorrhage so a CT of the brain was obtained. This revealed no signs of acute trauma. The patient's pain in the bilateral shoulder/arm region there is concern for fracture versus dislocation so x-rays were ordered. X-rays revealed bilateral proximal humeral fractures. Based on the bilateral acute fractures and the fact patient is unable to move her arm secondary to them she will not be able to care for herself and perform her activities of daily living. Therefore the patient will need admitted for PT and OT evaluation and potential placement in rehab why her fractures heal. Secondary to this the case was discussed with the hospitalist who agrees to accept the patient for continued care. I did discuss the case with orthopedic surgeon Dr. Walter. He recommends continued sling for support but no need for immobilization. History & Record Review Discussion w/independent historian: Patient and Family Lab Data Attestation: I reviewed the patient's lab results. Labs: Laboratory Results - last 24 hr 04/25/25 21:50 WBC 7.4 RBC 3.78 L Hgb 12.1 Hct 35.1 L MCV 92.9 MCH 32.0 MCHC 34.5 RDW Std Deviation 42.0 RDW Coeff of Noble 12.4 Plt Count 245 MPV 10.4 Immature Gran % (Auto) 0.800 Neut % (Auto) 44.0 L Lymph % (Auto) 46.6 H Larue % (Auto) 5.8 Eos % (Auto) 2.3 Baso % (Auto) 0.5 Absolute Neuts (auto) 3.3 Absolute Lymphs (auto) 3.45 Nucleated RBC % 0 PTH Intact 43 Radiography Diagnostic Testing: Clinical Impression(s) from Imaging Studies Brain CT 04/25/25 22:20 IMPRESSION: 1. No acute intracranial abnormality. 2. Large right frontal scalp hematoma/contusion. No calvarial fracture. 3. Moderate-advanced volume loss and chronic small-vessel ischemic changes. Reading Location: [id number] Humerus X-Ray 04/25/25 22:30 IMPRESSION: Acute impacted and superiorly migrated fracture of the right proximal humerus surgical neck. Reading Location: [id number] Humerus X-Ray 04/25/25 22:30 IMPRESSION: Acute comminuted and impacted fracture of the left humeral head and surgical neck. Reading Location: [id number] X-ray of the right humerus as interpreted by the emergency medicine physician reveals an acute impacted fracture of the proximal humerus X-ray of the left humerus as interpreted by the emergency medicine physician reveals an acute comminuted impacted fracture of the left humeral neck Management Discussion w/another healthcare provider: Hospitalist and Supervisor [employer] Discharge Plan Dx/Rx/DC Orders Clinical Impression: Bilateral proximal humeral fractures, Physical debility, Mitral valve prolapse Disposition Disposition: [facility] Discharge Date/Time: 04/26/25 00:22
[2025-04-25] MEDS: fentaNYL 100 MCG/2 ML Ampul 25 MCG IV (23:45)
[2025-04-25 23:46] VITALS: PULSE 80; RESP 16; O2SAT 98
[2025-04-25 23:48] VITALS: BP 130/58; PULSE 77; RESP 18; TEMP 36.7; O2SAT 100
--- OUTSIDE RECORDS SUMMARY | 2025-04-25 23:55 | XMS RPT_ITS | CCD ---
Author Organization [facility] Care Team Providers Care Energy Advisor Name Role Phone Britton TURCIOS, Dr. Alejandro Young Primary Care Provider [phone] Britton TURCIOS, Dr. Alejandro Young Attending Provider Britton TURCIOS, Dr. Alejandro Young Referring Provider Britton, Alejandro Chi Primary Care Unavailable Britton, Alejandro Chi Referring Unavailable Britton, Alejandro Chi Attending Unavailable Britton, Alejandro Chi Primary Care Unavailable Britton, Alejandro Chi Referring Unavailable Britton, Alejandro Chi Attending Unavailable Britton, Alejandro Chi Primary Care Unavailable Britton, Alejandro Chi Attending Unavailable Problems Problem Classification Problem Date Documented Da te Episodic/Chronic Essential hypertension (1 source) Essential (primary) hypertension; Translations: [Essential (primary) hypertension] Onset: 02-21-2025 Chronic Other liver diseases (1 source) Fatty (change of) liver, not elsewhere classified; Translations: [Fatty (change of) liver, not elsewhere classified] Onset: 02-19-2025 Chronic Results Test Name Value Interpretation Reference Range Facility Absolute lymphocyte countOrd ered By: Alejandro Jarquin on 02-13-2025 Lymphocytes Auto (Unsp spec) [#/Vol] 1.95 10*3/uL 0.83-4.51 [facility] Absolute neutrophil countOrd ered By: Alejandro Jarquin on 02-13-2025 Neutrophils (Bld) [#/Vol] 4.7 10*3/uL 2.0-7.7 [facility] Anion gap in Serum or Plasma Ordered By: Alejandro Jarquin on 02-13-2025 Anion gap [Moles/Vol] 14 mmol/L 5-15 [facility] Automated lymphocyte count a s percentage of total leukocytesOrdered By: Alejandro Jarquin on 02-13-2025 Lymphocytes/100 WBC Auto (Unsp spec) 26.7 % 19-41 [facility] BUN/creatinine ratioOrdered By: Alejandro Jarquin on 02-13-2025 Urea nitrogen/Creatinine [Mass ratio] 14.1 mg/mg 10-20 [facility] Comment on above: Previous reported re sult: 13.1 RATIOEdited by: SHELDON on 02/13/25:1926 AMENDED REPORT 02/13/251926 BUN/CRE previously reported as: 13.1 RATIO Basophil percentageOrdered B y: Alejandro Jarquin on 02-13-2025 Basophils/100 WBC (Bld) 0.5 % 0-1 [facility] Bilirubin, totalOrdered By: Alejandro Britton on 02-13-2025 Bilirubin [Mass/Vol] 0.30 mg/dL 0.00-1.30 [facility] CBC W/Diff, Automatedon 01-17 Absolute Lymph 1.95 X10 3/uL Normal 0.83-4.51 [facility] Comment on above: Performed By: #### L 501.9520, L506.1001, L500.4100, L100.0100, L500.4050 #### [facility] [address] [place], [address] Absolute Neut 4.7 X10 3/uL Normal 2.0-7.7 [facility] Comment on above: Performed By: #### L 501.9520, L506.1001, L500.4100, L100.0100, L500.4050 #### [facility] [address] [place], [address] Basophils/100 WBC (Bld) 0.5 % Normal 0-1 [facility] Comment on above: Performed By: #### L 501.9520, L506.1001, L500.4100, L100.0100, L500.4050 #### [facility] [address] [place], [address] Eosinophils/100 WBC (Bld) 1.9 % Normal 0-5 [facility] Comment on above: Performed By: #### L 501.9520, L506.1001, L500.4100, L100.0100, L500.4050 #### [facility] [address] [place], [address] Erythrocyte distribution width (RBC) [Ratio] 12.5 % Normal 11.6-14.6 [facility] Comment on above: Performed By: #### L 501.9520, L506.1001, L500.4100, L100.0100, L500.4050 #### [facility] [address] [place], [address] Hematocrit (Bld) [Volume fraction] 36.4 % Low 37-47 [facility] Comment on above: Performed By: #### L 501.9520, L506.1001, L500.4100, L100.0100, L500.4050 #### [facility] [address] [place], [address] Hemoglobin (Bld) [Mass/Vol] 12.7 g/dL Normal 12.0-15.0 [facility] Comment on above: Performed By: #### L 501.9520, L506.1001, L500.4100, L100.0100, L500.4050 #### [facility] [address] [place], [address] IG% 0.500 Normal 0.0-0.9 [facility] Comment on above: Result Comment: IG% - Immature Granulocytes (promyelocytes, myelocytes and metamyelocytes) > 1% indicates that a LEFT SHIFT is Present. Performed By: #### L 501.9520, L506.1001, L500.4100, L100.0100, L500.4050 #### [facility] [address] [place], [address] Lymphocytes/100 WBC (Bld) 26.7 % Normal 19-41 [facility] Comment on above: Performed By: #### L 501.9520, L506.1001, L500.4100, L100.0100, L500.4050 #### [facility] [address] [place], [address] MCH (RBC) [Entitic mass] 32.9 pg High 27.0-32.0 [facility] Comment on above: Performed By: #### L 501.9520, L506.1001, L500.4100, L100.0100, L500.4050 #### [facility] [address] [place], [address] MCHC (RBC) [Mass/Vol] 34.9 g/dL Normal 32-36 [facility] Comment on above: Performed By: #### L 501.9520, L506.1001, L500.4100, L100.0100, L500.4050 #### [facility] [address] [place], [address] MCV (RBC) [Entitic vol] 94.3 fL Normal 81-99 [facility] Comment on above: Performed By: #### L 501.9520, L506.1001, L500.4100, L100.0100, L500.4050 #### [facility] [address] [place], [address] Monocytes/100 WBC (Bld) 6.0 % Normal 0-10 [facility] Comment on above: Performed By: #### L 501.9520, L506.1001, L500.4100, L100.0100, L500.4050 #### [facility] [address] [place], [address] Neutrophils/100 WBC (Bld) 64.4 % Normal 47-70 [facility] Comment on above: Performed By: #### L 501.9520, L506.1001, L500.4100, L100.0100, L500.4050 #### [facility] [address] [place], [address] Nucleated RBC (Bld) [#/Vol] 0 10*3/uL Normal 0-5 [facility] Comment on above: Performed By: #### L 501.9520, L506.1001, L500.4100, L100.0100, L500.4050 #### [facility] [address] [place], [address] Platelet mean volume (Bld) [Entitic vol] 9.7 fL Normal 6.2-12.0 [facility] Comment on above: Performed By: #### L 501.9520, L506.1001, L500.4100, L100.0100, L500.4050 #### [facility] [address] [place], [address] Platelets (Bld) [#/Vol] 240 10*3/uL Normal 150-450 [facility] Comment on above: Performed By: #### L 501.9520, L506.1001, L500.4100, L100.0100, L500.4050 #### [facility] [address] [place], [address] RBC (Bld) [#/Vol] 3.86 10*6/uL Low 4.2-5.4 [facility] Comment on above: Performed By: #### L 501.9520, L506.1001, L500.4100, L100.0100, L500.4050 #### [facility] [address] [place], [address] RDW SD 43.4 fl Normal 35.1-43.9 [facility] Comment on above: Performed By: #### L 501.9520, L506.1001, L500.4100, L100.0100, L500.4050 #### [facility] [address] [place], [address] WBC (Bld) [#/Vol] 7.3 10*3/uL Normal 4.4-11.0 [facility] Comment on above: Performed By: #### L 501.9520, L506.1001, L500.4100, L100.0100, L500.4050 #### [facility] [address] [place], [address] Calculated very low density lipoprotein (VLDL) cholesterol measurementOrdered By: Alejandro Jarquin on 02-13-2025 Calculated very low density lipoprotein (VLDL) cholesterol measurement 22 mg/dL 5-40 [facility] Carbon dioxide, total [Moles /volume] in Central venous bloodOrdered By: Alejandro Jarquin on 02-13-2025 CO2 [Moles/Vol] 22.3 mmol/L 21.0-32.0 [facility] Chloride assayOrdered By: Chucky Jarquin on 02-13-2025 Chloride [Moles/Vol] 108 mmol/L 98-108 [facility] Comprehensive Metabolic Prof ilon 02-13-2025 Albumin/Globulin [Mass ratio] 1.7 {ratio} Normal 0.9-2.4 [facility] Comment on above: Performed By: #### L 501.9520, L506.1001, L500.4100, L100.0100, L500.4050 #### [facility] [address] [place], [address] BUN/CRE 14.1 RATIO Normal 10-20 [facility] Comment on above: Result Comment: AMENDED REPORT 02/13/251926 BUN/CRE previously reported as: 13.1 RATIO Performed By: #### L 501.9520, L506.1001, L500.4100, L100.0100, L500.4050 #### [facility] [address] [place], [address] Chloride [Moles/Vol] 108 mmol/L Normal 98-108 [facility] Comment on above: Performed By: #### L 501.9520, L506.1001, L500.4100, L100.0100, L500.4050 #### [facility] [address] [place], [address] Creatinine [Mass/Vol] 0.92 mg/dL Normal 0.70-1.20 [facility] Comment on above: Result Comment: AMENDED REPORT 02/13/251926 CREAT,SERUM previously reported as: 0.97 mg/dL Performed By: #### L 501.9520, L506.1001, L500.4100, L100.0100, L500.4050 #### [facility] [address] [place], [address] GAP 14 Normal 5-15 [facility] Comment on above: Performed By: #### L 501.9520, L506.1001, L500.4100, L100.0100, L500.4050 #### [facility] [address] [place], [address] Globulin (S) [Mass/Vol] 2.3 g/dL Normal 2.2-4.2 [facility] Comment on above: Result Comment: AMENDED REPORT 02/13/251926 GLOB previously reported as: 2.4 g/dL Performed By: #### L 501.9520, L506.1001, L500.4100, L100.0100, L500.4050 #### [facility] [address] [place], [address] Glucose [Mass/Vol] 95 mg/dL Normal 70-99 [facility] Comment on above: Result Comment: AMENDED REPORT 02/13/251926 GLU previously reported as: 98 mg/dL Performed By: #### L 501.9520, L506.1001, L500.4100, L100.0100, L500.4050 #### [facility] [address] [place], [address] Potassium [Moles/Vol] 4.3 mmol/L Normal 3.3-5.1 [facility] Comment on above: Performed By: #### L 501.9520, L506.1001, L500.4100, L100.0100, L500.4050 #### [facility] [address] [place], [address] Sodium [Moles/Vol] 144 mmol/L Normal 133-145 [facility] Comment on above: Performed By: #### L 501.9520, L506.1001, L500.4100, L100.0100, L500.4050 #### [facility] [address] [place], [address] T PROT 6.3 g/dL Normal 5.9-8.4 [facility] Comment on above: Performed By: #### L 501.9520, L506.1001, L500.4100, L100.0100, L500.4050 #### [facility] [address] [place], [address] Urea nitrogen [Mass/Vol] 13 mg/dL Normal 4-19 [facility] Comment on above: Performed By: #### L 501.9520, L506.1001, L500.4100, L100.0100, L500.4050 #### [facility] [address] [place], [address] Eosinophil percentageOrdered By: Alejandro Jarquin on 02-13-2025 Eosinophils/100 WBC (Bld) 1.9 % 0-5 [facility] Erythrocyte distribution wid th ratioOrdered By: Alejandro Jarquin on 02-13-2025 Erythrocyte distribution width (RBC) [Ratio] 12.5 % 11.6-14.6 [facility] Erythrocyte distribution wid th standard deviationOrdered By: Alejandro Jarquin on 02-13-2025 Erythrocyte distribution width (RBC) [Ratio] 43.4 fl 35.1-43.9 [facility] Glomerular filtration rate ( GFR) estimation/1.73 sq m using serum, plasma, or whole bOrdered By: Alejandro Jarquin on 02-13-2025 GFR/1.73 sq M.predicted among non-blacks MDRD (S/P/Bld) [Vol rate/Area] 57 mL/min/{1.73_m2} Low >60 [facility] Comment on above: mL/min/1.73m2 CKD-EP I Creatinine Equation (2020) Hematocrit Auto (Bld) [Volum e fraction]Ordered By: Alejandro Jarquin on 02-13-2025 Hematocrit (Bld) [Volume fraction] 36.4 % Low 37-47 [facility] Hemoglobin measurementOrdere d By: Alejandro Jarquin on 02-13-2025 Hemoglobin (Bld) [Mass/Vol] 12.7 g/dL 12.0-15.0 [facility] Immature granulocytes/100 WB C Auto (Bld)Ordered By: Alejandro Jarquin on 02-13-2025 Immature granulocytes/100 WBC (Bld) 0.500 % 0.0-0.9 [facility] Comment on above: IG% - Immature Granu locytes (promyelocytes, myelocytes and metamyelocytes) > 1% indicates that a LEFT SHIFT is Present. LDL calc ser/plasOrdered By: Alejandro Jarquin on 02-13-2025 Cholesterol in LDL [Mass/Vol] 151 mg/dL [facility] Comment on above: Vywlqmdklm=383-474 m g/dL & Higher Dryb=933 mg/dL or greater Laboratory - Chemistry and C hemistry - challengeOrdered By: Alejandro Jarquin on 02-13-2025 AST [Catalytic activity/Vol] 22 U/L <32 [facility] Lipid Profileon 02-13-2025 CHOL:HDL 3.99 Normal [facility] Comment on above: Performed By: #### L 501.9520, L506.1001, L500.4100, L100.0100, L500.4050 #### [facility] [address] [place], [address] Cholesterol [Mass/Vol] 230 mg/dL High <=200 [facility] Comment on above: Result Comment: Chol esterol level, Desirable <200 mg/dL Borderline high cholesterol 200-239 mg/dL High cholesterol >=240 mg/dL Recommendations of the NCEP Adult Treatment Panel for the following risk-cutoff thresholds for the [place] population. Performed By: #### L 501.9520, L506.1001, L500.4100, L100.0100, L500.4050 #### [facility] [address] [place], [address] Cholesterol in HDL [Mass/Vol] 58 mg/dL Normal [facility] Comment on above: Result Comment: Days[place] on[place] Cholesterol Education Program (NCEP) guidelines: <40 mg/dL: Low HDL-cholesterol (major risk factor for CHD) >= 60 mg/dL: High HDL-cholesterol (negative risk factor for CHD) HDL-cholesterol is affected by a number of factors, e.g. smoking, exercise, hormones, sex and age. Performed By: #### L 501.9520, L506.1001, L500.4100, L100.0100, L500.4050 #### [facility] [address] [place], [address] Cholesterol in LDL [Mass/Vol] 151 mg/dL Normal [facility] Comment on above: Result Comment: Bord iwkjku=941-455 mg/dL Higher Mihw=336 mg/dL or greater Performed By: #### L 501.9520, L506.1001, L500.4100, L100.0100, L500.4050 #### [facility] [address] [place], [address] Cholesterol in VLDL [Mass/Vol] 22 mg/dL Normal 5-40 [facility] Comment on above: Performed By: #### L 501.9520, L506.1001, L500.4100, L100.0100, L500.4050 #### [facility] [address] [place], [address] Triglyceride [Mass/Vol] 109 mg/dL Normal [facility] Comment on above: Result Comment: The drugs N-Acetylcysteine and Metamizole may falsely depress this assay. Normal range: <150 mg/dL Borderline High: 150-199 mg/dL High: 200-499 mg/dL Very High: >500 mg/dL Performed By: #### L 501.9520, L506.1001, L500.4100, L100.0100, L500.4050 #### [facility] [address] [place], [address] MCV (mean corpuscular volume ) determinationOrdered By: Alejandro Jarquin on 02-13-2025 MCV (RBC) [Entitic vol] 94.3 fL 81-99 [facility] Mean corpuscular hemoglobin (MCH) determinationOrdered By: Alejandro Jarquin on 02-13-2025 MCH (RBC) [Entitic mass] 32.9 pg High 27.0-32.0 [facility] Mean corpuscular hemoglobin concentration (MCHC) determinationOrdered By: Alejandro Jarquin 02-13-2025 MCHC (RBC) [Mass/Vol] 34.9 g/dL 32-36 [facility] Mean platelet volume determi nationOrdered By: Alejandro Jarquin on 02-13-2025 Platelet mean volume (Bld) [Entitic vol] 9.7 fL 6.2-12.0 [facility] Monocyte percentageOrdered B y: Alejandro Jarquin on 02-13-2025 Monocytes/100 WBC (Bld) 6.0 % 0-10 [facility] Neutrophil percentageOrdered By: Alejandro Jarquin 02-13-2025 Neutrophils/100 WBC (Bld) 64.4 % 47-70 [facility] Nucleated red blood cell per centageOrdered By: Alejandro Jarquin on 02-13-2025 Nucleated RBC/100 WBC (Bld) [Ratio] 0 % 0-5 [facility] Platelet countOrdered By: Chucky Jarquin on 02-13-2025 Platelets (Bld) [#/Vol] 240 10*3/uL 150-450 [facility] Potassium measurement (mass/ volume)Ordered By: Alejandro Jarquin on 02-13-2025 Potassium (Unsp spec) [Mass/Vol] 4.3 mmol/L 3.3-5.1 [facility] RBC Auto (Bld) [#/Vol]Ordere d By: Alejandro Jarquin on 02-13-2025 RBC (Bld) [#/Vol] 3.86 10*6/uL Low 4.2-5.4 [facility] Screening total cholesterol/ high density lipoprotein (HDL) cholesterol ratioOrdered By: Alejandro Jarquin on 02-13-2025 Cholesterol.total/Cholest camelia in HDL [Mass ratio] 3.99 {ratio} [facility] Serum creatinine measurement (mass/volume)Ordered By: Alejandro Jarquin on 02-13-2025 Creatinine [Mass/Vol] 0.92 mg/dL 0.70-1.20 [facility] Comment on above: Previous reported re sult: 0.97 mg/dLEdited by: SHELDON on 02/13/25:1926 AMENDED REPORT 02/13/251926 CREAT,SERUM previously reported as: 0.97 mg/dL Serum globulin measurementOr dered By: Alejandro Jarquin on 02-13-2025 Globulin (S) [Mass/Vol] 2.3 g/dL 2.2-4.2 [facility] Comment on above: Previous reported re sult: 2.4 g/dLEdited by: SHELDON on 02/13/25:1926 AMENDED REPORT 02/13/251926 GLOB previously reported as: 2.4 g/dL Serum glucose measurement (m ass/volume)Ordered By: Alejandro Jarquin on 02-13-2025 Glucose [Mass/Vol] 95 mg/dL 70-99 [facility] Comment on above: Previous reported re sult: 98 mg/dLEdited by: SHELDON on 02/13/25:1926 AMENDED REPORT 02/13/251926 GLU previously reported as: 98 mg/dL Serum or plasma alanine george otransferase (ALT) measurementOrdered By: Alejandro Jarquin on 02-13-2025 ALT [Catalytic activity/Vol] 11 U/L <35 [facility] Serum or plasma albumin ede urement (mass/volume)Ordered By: Alejandro Jarquin on 02-13-2025 Albumin [Mass/Vol] 4.0 g/dL 3.4-4.8 [facility] Serum or plasma albumin/glob ulin mass ratioOrdered By: Alejandro Jarquin 02-13-2025 Albumin/Globulin [Mass ratio] 1.7 {ratio} 0.9-2.4 [facility] Serum or plasma alkaline renate sphatase measurementOrdered By: Alejandro Jarquin 02-13-2025 ALP [Catalytic activity/Vol] 56 U/L 35-104 [facility] Serum or plasma calcium ede urement (mass/volume)Ordered By: Alejandro Jarquin 02-13-2025 Calcium [Mass/Vol] 9.4 mg/dL 7.6-11.0 [facility] Serum or plasma cholesterol in HDL measurement (mass/volume)Ordered By: Alejandro Jarquin 02-13-2025 Cholesterol in HDL [Mass/Vol] 58 mg/dL >40 [facility] Comment on above: National Cholesterol Education Program (NCEP) guidelines:<40 mg/dL: Low HDL-cholesterol (major risk factor for CHD)>= 60 mg/dL: High HDL-cholesterol (negative risk factor for CHD)HDL-cholesterol is affected by a number of factors, e.g. smoking, exercise, hormones, sex and age. Serum or plasma cholesterol measurement (mass/volume)Ordered By: Alejandro Jarquin 02-13-2025 Cholesterol [Mass/Vol] 230 mg/dL High <201 [facility] Comment on above: Cholesterol level, D esirable <200 mg/dLBorderline high cholesterol 200-239 mg/dLHigh cholesterol >=240 mg/dLRecommendations of the NCEP Adult Treatment Panel for the following risk-cutoff thresholds for the [place] population. Serum or plasma urea nitroge n measurement (mass/volume)Ordered By: Alejandro Jarquin 02-13-2025 Urea nitrogen [Mass/Vol] 13 mg/dL 4-19 [facility] Sodium levelOrdered By: Alejandro Jarquin 02-13-2025 Sodium [Moles/Vol] 144 mmol/L 133-145 [facility] TSH DL <= 0.005 mIU/L QnOrde red By: Alejandro Jarquin 02-13-2025 TSH Qn 1.380 uIU/mL 0.300-4.200 [facility] Comment on above: Previous reported re sult: 1.440 uIU/mLEdited by: SHELDON on 02/13/25:1926 AMENDED REPORT 02/13/251926 TSH previously reported as: 1.440 uIU/mL Thyroid Stim Hormone (TSH)on 02-13-2025 TSH 1.380 uIU/mL Normal 0.300-4.200 [facility] Comment on above: Result Comment: AMENDED REPORT 02/13/251926 TSH previously reported as: 1.440 uIU/mL Performed By: #### L 501.9520, L506.1001, L500.4100, L100.0100, L500.4050 #### [facility] [address] [place], [place], [id number] Total proteinOrdered By: Alejandro Jarquin on 02-13-2025 Protein [Mass/Vol] 6.3 g/dL 5.9-8.4 [facility] Triglycerides measurementOrd ered By: Alejandro Jarquin on 02-13-2025 Triglyceride [Mass/Vol] 109 mg/dL <199 [facility] Comment on above: The drugs N-Acetylcy steine and Metamizole may falsely depress this assay. Normal range: <150 mg/dLBorderline High: 150-199 mg/dLHigh: 200-499 mg/dLVery High: >500 mg/dL Vitamin D,25 Hydroxyon 02-13 Vitamin D 25-OH 87.1 ng/mL Normal 30-100 [facility] Comment on above: Result Comment: Zahida min D Status Deficiency: <20 ng/mL (50nmol/L) Insufficiency: 20-30 ng/mL (50-75 nmol/L) Sufficiency: 30-100 ng/mL (75-250 nmol/L) Toxicity: >100 ng/mL (>250 nmol/L) Performed By: #### L 501.9520, L506.1001, L500.4100, L100.0100, L500.4050 #### [facility] [address] [place], [place], [id number] White blood cell (WBC) count Ordered By: Alejandro Jarquin on 02-13-2025 WBC (Bld) [#/Vol] 7.3 10*3/uL 4.4-11.0 [facility] Vitamin D,25 Hydroxyon 08-03 Vitamin D 25-OH 79.3 ng/mL Normal [facility] Comment on above: Result Comment: Zahida min D 25(OH) Status Range Deficiency <20 ng/mL (50nmol/L) Insufficiency 20 - 30 ng/mL (50 - 75 nmol/L) Sufficiency 30 - 100 ng/mL (75 - 250 nmol/L) Toxicity >100 ng/mL (>250 nmol/L) Performed By: #### L 100.0100, L500.4050, L500.4100, L501.9520, L506.1000 #### [facility] [address] [place], [address] CBC W/Diff, Automatedon 07-17 Absolute Lymph 2.89 X10 3/uL Normal 0.83-4.51 [facility] Comment on above: Performed By: #### L 100.0100, L500.4050, L500.4100, L501.9520, L506.1000 #### [facility] [address] [place], [address] Absolute Neut 3.5 X10 3/uL Normal 2.0-7.7 [facility] Comment on above: Performed By: #### L 100.0100, L500.4050, L500.4100, L501.9520, L506.1000 #### [facility] [address] [place], [address] Basophils/100 WBC (Bld) 0.7 % Normal 0-1 [facility] Comment on above: Performed By: #### L 100.0100, L500.4050, L500.4100, L501.9520, L506.1000 #### [facility] [address] [place], [address] Eosinophils/100 WBC (Bld) 1.7 % Normal 0-5 [facility] Comment on above: Performed By: #### L 100.0100, L500.4050, L500.4100, L501.9520, L506.1000 #### [facility] [address] [place], [address] Erythrocyte distribution width (RBC) [Ratio] 12.7 % Normal 11.6-14.6 [facility] Comment on above: Performed By: #### L 100.0100, L500.4050, L500.4100, L501.9520, L506.1000 #### [facility] [address] [place], [address] Hematocrit (Bld) [Volume fraction] 40.4 % Normal 37-47 [facility] Comment on above: Performed By: #### L 100.0100, L500.4050, L500.4100, L501.9520, L506.1000 #### [facility] [address] [place], [address] Hemoglobin (Bld) [Mass/Vol] 13.6 g/dL Normal 12.0-15.0 [facility] Comment on above: Performed By: #### L 100.0100, L500.4050, L500.4100, L501.9520, L506.1000 #### [facility] [address] [place], [address] IG% 0.300 Normal 0.0-0.9 [facility] Comment on above: Result Comment: IG% - Immature Granulocytes (promyelocytes, myelocytes and metamyelocytes) > 1% indicates that a LEFT SHIFT is Present. Performed By: #### L 100.0100, L500.4050, L500.4100, L501.9520, L506.1000 #### [facility] [address] [place], [address] Lymphocytes/100 WBC (Bld) 40.5 % Normal 19-41 [facility] Comment on above: Performed By: #### L 100.0100, L500.4050, L500.4100, L501.9520, L506.1000 #### [facility] [address] [place], [address] MCH (RBC) [Entitic mass] 31.9 pg Normal 27.0-32.0 [facility] Comment on above: Performed By: #### L 100.0100, L500.4050, L500.4100, L501.9520, L506.1000 #### [facility] [address] [place], [address] MCHC (RBC) [Mass/Vol] 33.7 g/dL Normal 32-36 [facility] Comment on above: Performed By: #### L 100.0100, L500.4050, L500.4100, L501.9520, L506.1000 #### [facility] [address] [place], [address] MCV (RBC) [Entitic vol] 94.8 fL Normal 81-99 [facility] Comment on above: Performed By: #### L 100.0100, L500.4050, L500.4100, L501.9520, L506.1000 #### [facility] [address] [place], [address] Monocytes/100 WBC (Bld) 7.2 % Normal 0-10 [facility] Comment on above: Performed By: #### L 100.0100, L500.4050, L500.4100, [id number], L506.1000 #### [facility] [address] [place], [address] Neutrophils/100 WBC (Bld) 49.6 % Normal 47-70 [facility] Comment on above: Performed By: #### L 100.0100, L500.4050, L500.4100, [id number], L506.1000 #### [facility] [address] [place], [address] Nucleated RBC (Bld) [#/Vol] 0 10*3/uL Normal 0-5 [facility] Comment on above: Performed By: #### L 100.0100, L500.4050, L500.4100, [id number], L506.1000 #### [facility] [address] [place], [address] Platelet mean volume (Bld) [Entitic vol] 9.8 fL Normal 6.2-12.0 [facility] Comment on above: Performed By: #### L 100.0100, L500.4050, L500.4100, L501.9520, L506.1000 #### [facility] [address] [place], [address] Platelets (Bld) [#/Vol] 264 10*3/uL Normal 150-450 [facility] Comment on above: Performed By: #### L 100.0100, L500.4050, L500.4100, [id number], L506.1000 #### [facility] [address] [place], [address] RBC (Bld) [#/Vol] 4.26 10*6/uL Normal 4.2-5.4 [facility] Comment on above: Performed By: #### L 100.0100, L500.4050, L500.4100, [id number], L506.1000 #### [facility] [address] [place], [address] RDW SD 44.0 fl High 35.1-43.9 [facility] Comment on above: Performed By: #### L 100.0100, L500.4050, L500.4100, [id number], [id number] #### [facility] [address] [place], [address] WBC (Bld) [#/Vol] 7.1 10*3/uL Normal 4.4-11.0 [facility] Comment on above: Performed By: #### L 100.0100, L500.4050, L500.4100, [id number], L506.1000 #### [facility] [address] [place], [address] Comprehensive Metabolic Prof ilon 08-02-2024 Albumin [Mass/Vol] 3.7 g/dL Normal 3.2-5.0 [facility] Comment on above: Performed By: #### L 100.0100, L500.4050, L500.4100, L501.9520, L506.1000 #### [facility] [address] [place], [address] Albumin/Globulin [Mass ratio] 1.1 {ratio} Normal 0.9-2.4 [facility] Comment on above: Performed By: #### L 100.0100, L500.4050, L500.4100, L501.9520, L506.1000 #### [facility] [address] [place], [address] ALK P 64 U/L Normal 45-117 [facility] Comment on above: Performed By: #### L 100.0100, L500.4050, L500.4100, [id number], L506.1000 #### [facility] [address] [place], [address] ALT [Catalytic activity/Vol] 13 U/L Normal 13-56 [facility] Comment on above: Performed By: #### L 100.0100, L500.4050, L500.4100, [id number], L506.1000 #### [facility] [address] [place], [address] AST [Catalytic activity/Vol] 16 U/L Normal 15-37 [facility] Comment on above: Performed By: #### L 100.0100, L500.4050, L500.4100, [id number], L506.1000 #### [facility] [address] [place], [address] Bilirubin [Mass/Vol] 0.40 mg/dL Normal 0.20-1.00 [facility] Comment on above: Result Comment: For patients on eltrombopag therapy, use of Dimension [place] TBIL is not recommended. Performed By: #### L 100.0100, L500.4050, L500.4100, L501.9520, L506.1000 #### [facility] [address] [place], [address] BUN/CRE 29.6 RATIO High 10-20 [facility] Comment on above: Performed By: #### L 100.0100, L500.4050, L500.4100, [id number], L506.1000 #### [facility] [address] [place], [address] CA,Total 9.3 mg/dL Normal 8.5-10.1 [facility] Comment on above: Performed By: #### L 100.0100, L500.4050, L500.4100, [id number], L506.1000 #### [facility] [address] [place], [address] Chloride [Moles/Vol] 112 mmol/L High 98-107 [facility] Comment on above: Performed By: #### L 100.0100, L500.4050, L500.4100, [id number], L506.1000 #### [facility] [address] [place], [address] CO2 [Moles/Vol] 26.0 mmol/L Normal 21.0-32.0 [facility] Comment on above: Performed By: #### L 100.0100, L500.4050, L500.4100, L501.9520, L506.1000 #### [facility] [address] [place], [address] Creatinine [Mass/Vol] 0.81 mg/dL Normal 0.55-1.02 [facility] Comment on above: Result Comment: The validity of the calculated GFR GFRAA in patients over 70 years has not been determined. Clinical correlation is essential. Performed By: #### L 100.0100, L500.4050, L500.4100, L501.9520, L506.1000 #### [facility] [address] [place], [address] EST GFR - AA 86 mL/min Normal >60 [facility] Comment on above: Result Comment: Afri can [place] GFR Calc Performed By: #### L 100.0100, L500.4050, L500.4100, L501.9520, L506.1000 #### [facility] [address] [place], [address] GAP 5 Normal 5-15 [facility] Comment on above: Performed By: #### L 100.0100, L500.4050, L500.4100, [id number], L506.1000 #### [facility] [address] [place], [address] GFR/1.73 sq M.predicted among non-blacks MDRD (S/P/Bld) [Vol rate/Area] 71 mL/min/{1.73_m2} Normal >60 [facility] Comment on above: Result Comment: Non- GFR Calc Performed By: #### L 100.0100, L500.4050, L500.4100, L501.9520, L506.1000 #### [facility] [address] [place], [address] Globulin (S) [Mass/Vol] 3.3 g/dL Normal 2.2-4.2 [facility] Comment on above: Performed By: #### L 100.0100, L500.4050, L500.4100, L501.9520, L506.1000 #### [facility] [address] [place], [address] Glucose [Mass/Vol] 104 mg/dL Normal 74-106 [facility] Comment on above: Result Comment: Fast ing Glucose result from 100 to 125 mg/dL suggests IMPAIRED HOMEOSTASIS per A.D.A. criteria. Performed By: #### L 100.0100, L500.4050, L500.4100, L501.9520, L506.1000 #### [facility] [address] [place], [address] Potassium [Moles/Vol] 3.7 mmol/L Normal 3.5-5.1 [facility] Comment on above: Performed By: #### L 100.0100, L500.4050, L500.4100, L501.9520, L506.1000 #### [facility] [address] [place], [address] Sodium [Moles/Vol] 143 mmol/L Normal 136-145 [facility] Comment on above: Performed By: #### L 100.0100, L500.4050, L500.4100, L501.9520, L506.1000 #### [facility] [address] [place], [address] T PROT 7.0 g/dL Normal 6.4-8.2 [facility] Comment on above: Performed By: #### L 100.0100, L500.4050, L500.4100, L501.9520, L506.1000 #### [facility] [address] [place], [address] Urea nitrogen [Mass/Vol] 24 mg/dL High 7-18 [facility] Comment on above: Performed By: #### L 100.0100, L500.4050, L500.4100, L501.9520, L506.1000 #### [facility] [address] [place], [address] Lipid Profileon 08-02-2024 Cholesterol [Mass/Vol] 249 mg/dL High 200 [facility] Comment on above: Result Comment: <200 mg/dL Desirable 200-240 mg/dL Borderline >240 mg/dL High Risk Performed By: #### L 100.0100, L500.4050, L500.4100, L501.9520, L506.1000 #### [facility] [address] [place], [address] Cholesterol in HDL [Mass/Vol] 73 mg/dL Normal [facility] Comment on above: Result Comment: The drugs N-Acetylcysteine and Metamizole may falsely depress this assay. Reference Range HDL <40 mg/dL Low HDL Cholesterol HDL >or= 60 mg/dL High HDL Cholesterol Performed By: #### L 100.0100, L500.4050, L500.4100, L501.9520, L506.1000 #### [facility] [address] [place], [address] Cholesterol in LDL [Mass/Vol] 143 mg/dL High 0-130 [facility] Comment on above: Performed By: #### L 100.0100, L500.4050, L500.4100, L501.9520, L506.1000 #### [facility] [address] [place], [address] Cholesterol in VLDL [Mass/Vol] 33 mg/dL Normal 5-40 [facility] Comment on above: Performed By: #### L 100.0100, L500.4050, L500.4100, L501.9520, L506.1000 #### [facility] [address] [place], [address] Triglyceride [Mass/Vol] 166 mg/dL Normal [facility] Comment on above: Result Comment: The drugs N-Acetylcysteine and Metamizole may falsely depress this assay. Serum Triglycerides Reference Interval Normal <150 mg/dL Borderline high 150 - 199 mg/dL High 200 - 499 mg/dL Very High > or = 500 mg/dL Performed By: #### L 100.0100, L500.4050, L500.4100, L501.9520, L506.1000 #### [facility] [address] [place], [address] Thyroid Stim Hormone (TSH)on 08-02-2024 TSH 1.250 uIU/mL Normal 0.358-3.740 [facility] Comment on above: Performed By: #### L 100.0100, L500.4050, L500.4100, L501.9520, L506.1000 #### [facility] [address] [place], [address] Absolute lymphocyte countOrd ered By: Alejandro Jarquin on 02-13-2024 Lymphocytes Auto (Unsp spec) [#/Vol] 1.78 10*3/uL 0.83-4.51 [facility] Automated lymphocyte count a s percentage of total leukocytesOrdered By: Alejandro Jarquin on 02-13-2024 Lymphocytes/100 WBC Auto (Unsp spec) 31.7 % 19-41 [facility] Basophil percentageOrdered B y: Alejandro Jarquin on 02-13-2024 Basophils/100 WBC (Bld) 0.7 % 0-1 [facility] Bilirubin [Mass/Vol] 0.30 mg/dL 0.20-1.00 [facility] Comment on above: For patients on eltr ombopag therapy, use of Dim[place] TBIL is not recommended. Chloride [Moles/Vol] 111 mmol/L 98-107 [facility] Cholesterol [Mass/Vol] 228 mg/dL <200 [facility] Comment on above: <200 mg/dL Desirable 200-240 mg/dL Borderline >240 mg/dL High Risk Eosinophils/100 WBC (Bld) 3.9 % 0-5 [facility] Glucose [Mass/Vol] 105 mg/dL 74-106 [facility] Comment on above: Fasting Glucose resu lt from 100 to 125 mg/dL suggests IMPAIRED HOMEOSTASIS per A.D.A. criteria. Hemoglobin (Bld) [Mass/Vol] 12.6 g/dL 12.0-15.0 [facility] Monocytes/100 WBC (Bld) 6.4 % 0-10 [facility] Neutrophils (Bld) [#/Vol] 3.2 10*3/uL 2.0-7.7 [facility] Neutrophils/100 WBC (Bld) 57.1 % 47-70 [facility] Potassium [Moles/Vol] 4.0 mmol/L 3.5-5.1 [facility] Protein [Mass/Vol] 6.5 g/dL 6.4-8.2 [facility] Sodium [Moles/Vol] 143 mmol/L 136-145 [facility] Triglyceride [Mass/Vol] 123 mg/dL <199 [facility] Comment on above: The drugs N-Acetylcy steine and Metamizole may falsely depress this assay.Serum Triglycerides Reference Interval Normal <150 mg/dL Borderline high 150 - 199 mg/dL High 200 - 499 mg/dL Very High > or = 500 mg/dL WBC (Bld) [#/Vol] 5.6 10*3/uL 4.4-11.0 [facility] Determination of erythrocyte mean corpuscular volume (MCV)Ordered By: Alejandro Jarquin on 02-13-2024 MCV (RBC) [Entitic vol] 93.9 fL 81-99 [facility] Erythrocyte distribution wid th ratioOrdered By: Alejandro Jarquin 02-13-2024 Erythrocyte distribution width (RBC) [Ratio] 12.2 % 11.6-14.6 [facility] Erythrocyte distribution wid th standard deviationOrdered By: Alejandro Jarquin 02-13-2024 Erythrocyte distribution width (RBC) [Entitic vol] 42.6 fL 35.1-43.9 [facility] Hematocrit Auto (Bld) [Volum e fraction]Ordered By: Alejandro Jarquin 02-13-2024 Hematocrit (Bld) [Volume fraction] 37.0 % 37-47 [facility] Immature granulocytes/100 WB C Auto (Bld)Ordered By: Alejandro Jarquin 02-13-2024 Immature granulocytes/100 WBC (Bld) 0.200 % 0.0-0.9 [facility] Comment on above: IG% - Immature Granu locytes (promyelocytes, myelocytes and metamyelocytes) > 1% indicates that a LEFT SHIFT is Present. Laboratory - Chemistry and C hemistry - challengeOrdered By: Alejandro Jarquin on 02-13-2024 Albumin/Globulin [Mass ratio] 1.1 {ratio} 0.9-2.4 [facility] ALP [Catalytic activity/Vol] 56 U/L 45-117 [facility] ALT [Catalytic activity/Vol] 13 U/L 13-56 [facility] Cholesterol in HDL [Mass/Vol] 56 mg/dL >40 [facility] Comment on above: The drugs N-Acetylcy steine and Metamizole may falsely depress this assay. Reference Range HDL <40 mg/dL Low HDL Cholesterol HDL >or= 60 mg/dL High HDL Cholesterol Cholesterol in LDL [Mass/Vol] 147 mg/dL 0-130 [facility] CO2 [Moles/Vol] 28.0 mmol/L 21.0-32.0 [facility] Globulin (S) [Mass/Vol] 3.1 g/dL 2.2-4.2 [facility] Urea nitrogen/Creatinine [Mass ratio] 18.7 mg/mg 10-20 [facility] - Hematology and Cell countsOrdered By: Alejandro Jarquin on 02-13-2024 MCH (RBC) [Entitic mass] 32.0 pg 27.0-32.0 [facility] MCHC (RBC) [Mass/Vol] 34.1 g/dL 32-36 [facility] Nucleated RBC/100 WBC (Bld) [Ratio] 0 % 0-5 [facility] Platelet mean volume (Bld) [Entitic vol] 9.5 fL 6.2-12.0 [facility] Platelets (Bld) [#/Vol] 243 10*3/uL 150-450 [facility] No Panel InformationOrdered By: Alejandro Jarquin on 02-13-2024 Estimated GFR (MDRD) Amer 75 mL/min >60 [facility] Comment on above: GFR Calc Estimated GFR (MDRD) Non-Af Amer 62 mL/min >60 [facility] Comment on above: Non- GFR Calc Vitamin D 25-Hydroxy 78.6 ng/mL [facility] Comment on above: Vitamin D 25(OH) Sta tus Range Deficiency <20 ng/mL (50nmol/L) Insufficiency 20 - 30 ng/mL (50 - 75 nmol/L) Sufficiency 30 - 100 ng/mL (75 - 250 nmol/L) Toxicity >100 ng/mL (>250 nmol/L) VLDL Cholesterol 25 mg/dL 5-40 [facility] RBC Auto (Bld) [#/Vol]Ordere d By: Alejandro Jarquin on 02-13-2024 RBC (Bld) [#/Vol] 3.94 10*6/uL 4.2-5.4 [facility] Serum or plasma calcium ede urement (mass/volume)Ordered By: Alejandro Jarquin on 02-13-2024 Calcium [Mass/Vol] 9.2 mg/dL 8.5-10.1 [facility] Serum or plasma creatinine m easurement (mass/volume)Ordered By: Alejandro Jarquin on 02-13-2024 Creatinine [Mass/Vol] 0.91 mg/dL 0.55-1.02 [facility] Comment on above: The validity of the calculated GFR & GFRAA in patients over 70 years has not been determined. Clinical correlation is essential. Serum or plasma thyroid stim ulating hormone (TSH) measurement (units/volume)Ordered By: Alejandro Jarquin on 02-13-2024 TSH Qn 1.38 uIU/mL 0.358-3.74 [facility] Serum or plasma urea nitroge n measurement (mass/volume)Ordered By: Alejandro Jarquin on 02-13-2024 Urea nitrogen [Mass/Vol] 17 mg/dL 7-18 [facility] Thin prep Papanicolaou smear with manual screeningOrdered By: Alejandro Jarquin on 02-13-2024 Thin prep Papanicolaou smear with manual screening 3.4 g/dL 3.2-5.0 [facility] Thin prep Papanicolaou smear with manual screening 17 U/L 15-37 [facility] Thin prep Papanicolaou smear with manual screening 4 5-15 [facility] Absolute lymphocyte countOrd ered By: Alejandro Jarquin on 07-13-2023 Lymphocytes Auto (Unsp spec) [#/Vol] 1.84 10*3/uL 0.83-4.51 [facility] Basophil percentageOrdered B y: Alejandro Jarquin on 07-13-2023 Basophils/100 WBC (Bld) 0.7 % 0-1 [facility] Bilirubin [Mass/Vol] 0.50 mg/dL 0.20-1.00 [facility] Comment on above: For patients on eltr ombopag therapy, use of [place] TBIL is not recommended. Chloride [Moles/Vol] 111 mmol/L 98-107 [facility] Eosinophils/100 WBC (Bld) 2.7 % 0-5 [facility] Glucose [Mass/Vol] 100 mg/dL 74-106 [facility] Comment on above: Fasting Glucose resu lt from 100 to 125 mg/dL suggests IMPAIRED HOMEOSTASIS per A.D.A. criteria. Neutrophils (Bld) [#/Vol] 3.0 10*3/uL 2.0-7.7 [facility] Neutrophils/100 WBC (Bld) 54.5 % 47-70 [facility] Potassium [Moles/Vol] 3.9 mmol/L 3.5-5.1 [facility] Protein [Mass/Vol] 6.6 g/dL 6.4-8.2 [facility] Sodium [Moles/Vol] 141 mmol/L 136-145 [facility] WBC (Bld) [#/Vol] 5.5 10*3/uL 4.4-11.0 [facility] Blood erythrocytes count (nu mber/volume)Ordered By: Alejandro Jarquin on 07-13-2023 RBC (Bld) [#/Vol] 3.91 10*6/uL 4.2-5.4 [facility] Blood hemoglobin measurement (mass/volume)Ordered By: Alejandro Jarquin on 07-13-2023 Hemoglobin (Bld) [Mass/Vol] 12.3 g/dL 12.0-15.0 [facility] Blood lymphocytes/100 leukoc ytesOrdered By: Alejandro Jarquin on 07-13-2023 Lymphocytes/100 WBC (Bld) 33.4 % 19-41 [facility] Blood monocytes/100 leukocyt esOrdered By: Alejandro Jarquin on 07-13-2023 Monocytes/100 WBC (Bld) 8.5 % 0-10 [facility] Blood platelet mean volumeOr dered By: Alejandro Jarquin on 07-13-2023 Platelet mean volume (Bld) [Entitic vol] 9.9 fL 6.2-12.0 [facility] Determination of erythrocyte mean corpuscular volume (MCV)Ordered By: Alejandro Jarquin on 07-13-2023 MCV (RBC) [Entitic vol] 96.7 fL 81-99 [facility] Hematocrit Auto (Bld) [Volum e fraction]Ordered By: Alejandro Britton on 07-13-2023 Hematocrit (Bld) [Volume fraction] 37.8 % 37-47 [facility] - Chemistry and C hemistry - challengeOrdered [facility]: [facility] ALP [Catalytic activity/Vol] 50 U/L 45-117 [facility] ALT [Catalytic activity/Vol] 19 U/L 13-56 [facility] CO2 [Moles/Vol] 26.0 mmol/L 21.0-32.0 [facility] Globulin (S) [Mass/Vol] 3.2 g/dL 2.2-4.2 [facility] Urea nitrogen/Creatinine [Mass ratio] 18.7 mg/mg 10-20 [facility] - Hematology and Cell countsOrdered By: Alejandro Jarquin 07-13-2023 Erythrocyte distribution width (RBC) [Entitic vol] 43.7 fL 35.1-43.9 [facility] Erythrocyte distribution width (RBC) [Ratio] 12.5 % 11.6-14.6 [facility] Immature granulocytes/100 WBC (Bld) 0.200 % 0.0-0.9 [facility] Comment on above: IG% - Immature Granu locytes (promyelocytes, myelocytes and metamyelocytes) > 1% indicates that a LEFT SHIFT is Present. MCH (RBC) [Entitic mass] 31.5 pg 27.0-32.0 [facility] Nucleated RBC/100 WBC (Bld) [Ratio] 0 % 0-5 [facility] MCHC Auto (RBC) [Mass/Vol]Or dered By: Alejandro Jarquin on 07-13-2023 MCHC (RBC) [Mass/Vol] 32.5 g/dL 32-36 [facility] No Panel InformationOrdered By: Alejandro Jarquin on 07-13-2023 Estimated GFR (MDRD) Amer 103 mL/min >60 [facility] Comment on above: GFR Calc Estimated GFR (MDRD) Non-Af Amer 85 mL/min >60 [facility] Comment on above: Non- GFR Calc Thyroid Stimulating Hormone (TSH) 2.17 uIU/mL 0.358-3.74 [facility] Vitamin D 25-Hydroxy 79.8 ng/mL [facility] Comment on above: Vitamin D 25(OH) Sta tus Range Deficiency <20 ng/mL (50nmol/L) Insufficiency 20 - 30 ng/mL (50 - 75 nmol/L) Sufficiency 30 - 100 ng/mL (75 - 250 nmol/L) Toxicity >100 ng/mL (>250 nmol/L) Platelets bldOrdered By: Alejandro Jarquin on 07-13-2023 Platelets (Bld) [#/Vol] 231 10*3/uL 150-450 [facility] Serum or plasma albumin ede urement (mass/volume)Ordered By: Alejandro Jarquin on 07-13-2023 Albumin [Mass/Vol] 3.4 g/dL 3.2-5.0 [facility] Serum or plasma albumin/glob ulin mass ratioOrdered By: Alejandro Jarquin on 07-13-2023 Albumin/Globulin [Mass ratio] 1.1 {ratio} 0.9-2.4 [facility] Serum or plasma calcium ede urement (mass/volume)Ordered By: Alejandro Jarquin on 07-13-2023 Calcium [Mass/Vol] 8.8 mg/dL 8.5-10.1 [facility] Serum or plasma creatinine m easurement (mass/volume)Ordered By: Alejandro Jarquin on 07-13-2023 Creatinine [Mass/Vol] 0.70 mg/dL 0.55-1.02 [facility] Comment on above: The validity of the calculated GFR & GFRAA in patients over 70 years has not been determined. Clinical correlation is essential. Serum or plasma urea nitroge n measurement (mass/volume)Ordered By: Alejandro Jarquin on 07-13-2023 Urea nitrogen [Mass/Vol] 13 mg/dL 7-18 [facility] Thin prep Papanicolaou smear with manual screeningOrdered By: Alejandro Jarquin on 07-13-2023 Thin prep Papanicolaou smear with manual screening 18 U/L 15-37 [facility] Thin prep Papanicolaou smear with manual screening 4 5-15 [facility] Absolute lymphocyte countOrd ered By: Dr. Jarquin on 01-05-2023 Lymphocytes Auto (Unsp spec) [#/Vol] 1.80 10*3/uL 0.83-4.51 [facility] Basophil percentageOrdered B y: Dr. Jarquin on 01-05-2023 Basophils/100 WBC (Bld) 0.6 % 0-1 [facility] Bilirubin [Mass/Vol] 0.30 mg/dL 0.20-1.00 [facility] Comment on above: For patients on eltr ombopag therapy, use of Dim[employer] [place] TBIL is not recommended. Chloride [Moles/Vol] 110 mmol/L 98-107 [facility] Eosinophils/100 WBC (Bld) 2.7 % 0-5 [facility] Glucose [Mass/Vol] 94 mg/dL 74-106 [facility] Neutrophils (Bld) [#/Vol] 2.9 10*3/uL 2.0-7.7 [facility] Neutrophils/100 WBC (Bld) 54.4 % 47-70 [facility] Potassium [Moles/Vol] 3.5 mmol/L 3.5-5.1 [facility] Protein [Mass/Vol] 6.7 g/dL 6.4-8.2 [facility] Sodium [Moles/Vol] 144 mmol/L 136-145 [facility] WBC (Bld) [#/Vol] 5.3 10*3/uL 4.4-11.0 [facility] Blood erythrocytes count (nu mber/volume)Ordered By: Dr. Jarquin on 01-05-2023 RBC (Bld) [#/Vol] 4.17 10*6/uL 4.2-5.4 [facility] Blood hemoglobin measurement (mass/volume)Ordered By: Dr. Jarquin on 01-05-2023 Hemoglobin (Bld) [Mass/Vol] 13.3 g/dL 12.0-15.0 [facility] Blood lymphocytes/100 leukoc ytesOrdered By: Dr. Jarquin on 01-05-2023 Lymphocytes/100 WBC (Bld) 34.1 % 19-41 [facility] Blood monocytes/100 leukocyt esOrdered By: Dr. Jarquin on 01-05-2023 Monocytes/100 WBC (Bld) 8.0 % 0-10 [facility] Blood platelet mean volumeOr dered By: Dr. Jarquin on 01-05-2023 Platelet mean volume (Bld) [Entitic vol] 9.8 fL 6.2-12.0 [facility] Determination of erythrocyte mean corpuscular volume (MCV)Ordered By: Dr. Jarquin on 01-05-2023 MCV (RBC) [Entitic vol] 95.9 fL 81-99 [facility] Hematocrit Auto (Bld) [Volum e fraction]Ordered By: Dr. Jarquin on 01-05-2023 Hematocrit (Bld) [Volume fraction] 40.0 % 37-47 [facility] - Chemistry and C hemistry - challengeOrdered By: Dr. Jarquin on 01-05-2023 ALP [Catalytic activity/Vol] 58 U/L 45-117 [facility] ALT [Catalytic activity/Vol] 17 U/L 13-56 [facility] CO2 [Moles/Vol] 27.0 mmol/L 21.0-32.0 [facility] Globulin (S) [Mass/Vol] 3.2 g/dL 2.2-4.2 [facility] Urea nitrogen/Creatinine [Mass ratio] 20.9 mg/mg 10-20 [facility] - Hematology and Cell countsOrdered By: Dr. Jarquin on 01-05-2023 Erythrocyte distribution width (RBC) [Entitic vol] 42.6 fL 35.1-43.9 [facility] Erythrocyte distribution width (RBC) [Ratio] 12.1 % 11.6-14.6 [facility] Immature granulocytes/100 WBC (Bld) 0.200 % 0.0-0.9 [facility] Comment on above: IG% - Immature Granu locytes (promyelocytes, myelocytes and metamyelocytes) > 1% indicates that a LEFT SHIFT is Present. MCH (RBC) [Entitic mass] 31.9 pg 27.0-32.0 [facility] Nucleated RBC/100 WBC (Bld) [Ratio] 0 % 0-5 [facility] MCHC Auto (RBC) [Mass/Vol]Or dered By: Dr. Jarquin on 01-05-2023 MCHC (RBC) [Mass/Vol] 33.3 g/dL 32-36 [facility] No Panel InformationOrdered By: Dr. Jarquin on 01-05-2023 Estimated GFR (MDRD) Amer 86 mL/min >60 [facility] Comment on above: GFR Calc Estimated GFR (MDRD) Non-Af Amer 71 mL/min >60 [facility] Comment on above: Non- GFR Calc Thyroid Stimulating Hormone (TSH) 2.12 uIU/mL 0.358-3.74 [facility] Vitamin D 25-Hydroxy 72.3 ng/mL [facility] Comment on above: Vitamin D 25(OH) Sta tus Range Deficiency <20 ng/mL (50nmol/L) Insufficiency 20 - 30 ng/mL (50 - 75 nmol/L) Sufficiency 30 - 100 ng/mL (75 - 250 nmol/L) Toxicity >100 ng/mL (>250 nmol/L) Platelets bldOrdered By: Dr. Jarquin on 01-05-2023 Platelets (Bld) [#/Vol] 249 10*3/uL 150-450 [facility] Serum or plasma albumin ede urement (mass/volume)Ordered By: Dr. Jarquin on 01-05-2023 Albumin [Mass/Vol] 3.5 g/dL 3.2-5.0 [facility] Serum or plasma albumin/glob ulin mass ratioOrdered By: Dr. Jarquin on 01-05-2023 Albumin/Globulin [Mass ratio] 1.1 {ratio} 0.9-2.4 [facility] Serum or plasma calcium ede urement (mass/volume)Ordered By: Dr. Jarquin on 01-05-2023 Calcium [Mass/Vol] 9.1 mg/dL 8.5-10.1 [facility] Serum or plasma creatinine m easurement (mass/volume)Ordered By: Dr. Jarquin on 01-05-2023 Creatinine [Mass/Vol] 0.82 mg/dL 0.55-1.02 [facility] Comment on above: The validity of the calculated GFR & GFRAA in patients over 70 years has not been determined. Clinical correlation is essential. Serum or plasma urea nitroge n measurement (mass/volume)Ordered By: Dr. Jarquin on 01-05-2023 Urea nitrogen [Mass/Vol] 17 mg/dL 7-18 [facility] Thin prep Papanicolaou smear with manual screeningOrdered By: Dr. Jarquin on 01-05-2023 Thin prep Papanicolaou smear with manual screening 19 U/L 15-37 [facility] Thin prep Papanicolaou smear with manual screening 7 5-15 [facility] Encounters Encounter Date Encounter Type Care Provider Facility Start: 02-26-2025 ambulatory [facility] Facility:[facility] Start: 02-13-2025 End: 02-13-[address] Alejandro Jarquin MD Work Phone: [facility] Work Phone: Start: 02-13-2025 End: 02-13-[address] Alejandro Jarquin MD -Laboratory Work Phone: Start: 02-13-2025 End: 02-13-2025 ambulatory [facility] Facility:[facility] Start: 08-02-2024 End: 08-02-2024 ambulatory [facility] Facility:[facility] Start: 02-13-2024 End: 02-13-2024 ambulatory [facility] Work Phone: Start: 02-13-2024 End: 02-13-2024 Patient encounter procedure [facility]-Laboratory Work Phone: Start: 07-13-2023 End: 07-13-2023 ambulatory [facility] Work Phone: Start: 07-13-2023 End: 07-13-2023 Patient encounter procedure [facility]-Laboratory, Phy Office 3rd Flr Start: 01-05-2023 End: 01-05-2023 ambulatory [facility] Work Phone: Start: 01-05-2023 End: 01-05-2023 Patient encounter procedure [facility]Laboratory, Phy Office 3rd Flr Procedures Date Procedure Procedure Detail Performing Clinician Start: 02-13-2025 Vitamin D, 25-hydrox y measurement Dr. Alejandro Jarquin MD Work Phone: Comment on above: Vitamin D StatusDefi ciency: <20 ng/mL (50nmol/L)Insufficiency: 20-30 ng/mL (50-75 nmol/L)Sufficiency: 30-100 ng/mL (75-250 nmol/L)Toxicity: >100 ng/mL (>250 nmol/L) Payers Date Payer Category Payer Self-pay [id number] 2016 Medicare [id number] Unknown [id number] Unknown [id number] Unknown [id number] Social History Date Type [facility]ail [facility] Work Phone: Start: 1940 Sex Assigned At Female [facility] if [facility] Work Phone: Evaluation note Note Date & Type Note Facility Evaluation note No assessment information availa ble [facility] Work Phone: Reason for referral (narrative) Note Date & Type Note Facility Reason for referral (narrative) No reason for referral information available [facility] Work Phone: Summary Purpose Family History No Family History Records Found Advance Directives No Advanced Directives Records Found Additional Source Comments Care Teams (unrecognized sec tion and content) Team Status: Active Member Role Status Dates Dr. Alejandro Jarquin MD Family Provider Active Dr. Alejandro Jarquin MD Primary Care Provider Active Team Status: Inactive Member Role Status Dates Dr. Alejandro Jarquin MD Primary Care Provider, Attending Provider Active Team Status: Inactive Member Role Status Dates Dr. Alejandro Jarquin MD Primary Care Provi bindu, Attending Provider, Referring Provider Active Team Status: Active Member Role Status Dates Dr. Alejandro Jarquin MD Primary Care Provider Active Team Status: Inactive Member Role Status Dates Dr. Alejandro Jarquin MD Primary Care Provider Active Start: February 13, 2025 End: February 13, 2025 Dr. Alejandro Jarquin MD Attending Provider Active Start: February 13, 2025 End: February 13, 2025 Dr. Alejandro Jarquin MD Referring Provider Active Start: February 13, 2025 End: February 13, 2025 Goals (unrecognized section and content) Goals may be documented in a n alternate sectionGoals may be documented in an alternate sectionGoals may be documented in an alternate section INFORMATION SOURCE (unrecogn ized section and content) DATE CREATED AUTHOR 02/22/2025 [facility] FOR RECORDS PERTAINING TO PATIENTS WHO ARE OR HAVE BEEN ENROLLED IN A CHEMICAL DEPENDENCY/SUBSTANCEABUSE PROGRAM, SOME INFORMATION MAY BE OMITTED. This clinical summary was aggregated from multiple sources. Caution should be exercised in using it in the provision of clinical care. This summary normalizes information from multiple sources, and as a consequence, information in this document may materially change the coding, format and clinical context of patient data. In addition, data may be omitted in some cases. CLINICAL DECISIONS SHOULD BE BASED ON THE PRIMARY CLINICAL RECORDS. [employer] provides no warranty or guarantee of the accuracy or completeness of information in this document.
--- OUTSIDE RECORDS SUMMARY | 2025-04-25 23:55 | XMS RPT_ITS | CCD ---
Author Organization [facility] Care Team Providers Care Core Java Engineer Name Role Phone Britton TURCIOS, Dr. Alejandro Young Primary Care Provider [phone] Britton TURCIOS, Dr. Alejandro Young Attending Provider [...] Auto (Unsp spec) [#/Vol] 1.95 10*3/uL 0.83-4.51 [facility] Absolute neutrophil countOrd ered By: Alejandro Jarquin on 02-13-2025 Neutrophils (Bld) [#/Vol] 4.7 10*3/uL 2.0-7.7 [facility] Anion gap in Serum or Plasma Ordered By: Alejandro Jarquin on 02-13-2025 Anion gap [Moles/Vol] 14 mmol/L 5-15 [facility] Automated lymphocyte count a s percentage of total leukocytesOrdered By: Alejandro Jarquin on 02-13-2025 Lymphocytes/100 WBC Auto (Unsp spec) 26.7 % 19-41 [facility] BUN/creatinine ratioOrdered By: Alejandro Jarquin on 02-13-2025 Urea nitrogen/Creatinine [Mass ratio] 14.1 mg/mg 10-20 [facility] Comment on above: Previous reported re sult: 13.1 RATIOEdited by: SHELDON on 02/13/25:1926 AMENDED REPORT 02/13/251926 BUN/CRE previously reported as: 13.1 RATIO Basophil percentageOrdered B y: Alejandro Jarquin on 02-13-2025 Basophils/100 WBC (Bld) 0.5 % 0-[address] [facility] Bilirubin, totalOrdered By: Alejandro Britton on 02-13-2025 Bilirubin [Mass/Vol] 0.30 mg/dL 0.00-1.30 [facility] CBC W/Diff, Automatedon 01-17 Absolute Lymph 1.95 X10 3/uL Normal 0.83-4.51 [facility] Comment on above: Performed By: #### L 501.9520, L506.1001, L500.4100, L100.0100, L500.4050 #### [facility] [address] [place], [address] Absolute Neut 4.7 X10 3/uL Normal 2.0-7.7 [facility] Comment on above: Performed By: #### L 501.9520, L506.1001, L500.4100, L100.0100, L500.4050 #### [facility] [address] [place], [address] Basophils/100 WBC (Bld) 0.5 % Normal 0-[address] [facility] Comment on above: Performed By: #### L 501.9520, L506.1001, L500.4100, L100.0100, L500.4050 #### [facility] [address] [place], [address] Eosinophils/100 WBC (Bld) 1.9 % Normal 0-5 [facility] Comment on above: Performed By: #### L 501.9520, L506.1001, L500.4100, L100.0100, L500.4050 #### [facility] [address] [place], [address] Erythrocyte distribution width (RBC) [Ratio] 12.5 % Normal 11.6-14.6 [facility] Comment on above: Performed By: #### L 501.9520, L506.1001, L500.4100, L100.0100, L500.4050 #### [facility] [address] [place], [address] Hematocrit (Bld) [Volume fraction] 36.4 % Low 37-47 [facility] Comment on above: Performed By: #### L 501.9520, L506.1001, L500.4100, L100.0100, L500.4050 #### [facility] [address] [place], [address] Hemoglobin (Bld) [Mass/Vol] 12.7 g/dL Normal 12.0-15.0 [facility] Comment on above: Performed By: #### L 501.9520, L506.1001, L500.4100, L100.0100, L500.4050 #### [facility] [address] [place], [address] IG% 0.500 Normal 0.0-0.9 [facility] Comment on above: Result Comment: IG% - Immature Granulocytes (promyelocytes, myelocytes and metamyelocytes) > 1% indicates that a LEFT SHIFT is Present. Performed By: #### L 501.9520, L506.1001, L500.4100, L100.0100, L500.4050 #### [facility] [address] [place], [address] Lymphocytes/100 WBC (Bld) 26.7 % Normal 19-41 [facility] Comment on above: Performed By: #### L 501.9520, L506.1001, L500.4100, L100.0100, L500.4050 #### [facility] [address] [place], [address] MCH (RBC) [Entitic mass] 32.9 pg High 27.0-32.0 [facility] Comment on above: Performed By: #### L 501.9520, L506.1001, L500.4100, L100.0100, L500.4050 #### [facility] [address] [place], [address] MCHC (RBC) [Mass/Vol] 34.9 g/dL Normal 32-36 [facility] Comment on above: Performed By: #### L 501.9520, L506.1001, L500.4100, L100.0100, L500.4050 #### [facility] [address] [place], [address] MCV (RBC) [Entitic vol] 94.3 fL Normal 81-[address] [facility] Comment on above: Performed By: #### L 501.9520, L506.1001, L500.4100, L100.0100, L500.4050 #### [facility] [address] [place], [address] Monocytes/100 WBC (Bld) 6.0 % Normal 0-[address] [facility] Comment on above: Performed By: #### L 501.9520, L506.1001, L500.4100, L100.0100, L500.4050 #### [facility] [address] [place], [address] Neutrophils/100 WBC (Bld) 64.4 % Normal 47-70 [facility] Comment on above: Performed By: #### L 501.9520, L506.1001, L500.4100, L100.0100, L500.4050 #### [facility] [address] [place], [address] Nucleated RBC (Bld) [#/Vol] 0 10*3/uL Normal 0-5 [facility] Comment on above: Performed By: #### L 501.9520, L506.1001, L500.4100, L100.0100, L500.4050 #### [facility] [address] [place], [address] Platelet mean volume (Bld) [Entitic vol] 9.7 fL Normal 6.2-12.0 [facility] Comment on above: Performed By: #### L 501.9520, L506.1001, L500.4100, L100.0100, L500.4050 #### [facility] [address] [place], [address] Platelets (Bld) [#/Vol] 240 10*3/uL Normal 150-450 [facility] Comment on above: Performed By: #### L 501.9520, L506.1001, L500.4100, L100.0100, L500.4050 #### [facility] [address] [place], [address] RBC (Bld) [#/Vol] 3.86 10*6/uL Low 4.2-5.4 [facility] Comment on above: Performed By: #### L 501.9520, L506.1001, L500.4100, L100.0100, L500.4050 #### [facility] [address] [place], [address] RDW SD 43.4 fl Normal 35.1-43.9 [facility] Comment on above: Performed By: #### L 501.9520, L506.1001, L500.4100, L100.0100, L500.4050 #### [facility] [address] [place], [address] WBC (Bld) [#/Vol] 7.3 10*3/uL Normal 4.4-11.[address] [facility] Comment on above: Performed By: #### L 501.9520, L506.1001, L500.4100, L100.0100, L500.4050 #### [facility] [address] [place], [address] Calculated very low density lipoprotein (VLDL) cholesterol measurementOrdered By: Alejandro Jarquin on 02-13-2025 Calculated very low density lipoprotein (VLDL) cholesterol measurement 22 mg/dL 5-40 [facility] Carbon dioxide, total [Moles /volume] in Central venous bloodOrdered By: Alejandro Jarquin on 02-13-2025 CO2 [Moles/Vol] 22.3 mmol/L 21.0-32.0 [facility] Chloride assayOrdered By: Chucky Jarquin on 02-13-2025 Chloride [Moles/Vol] 108 mmol/L 98-108 [facility] Comprehensive Metabolic Prof ilon 02-13-2025 Albumin/Globulin [Mass ratio] 1.7 {ratio} Normal 0.9-2.4 [facility] Comment on above: Performed By: #### L 501.9520, L506.1001, L500.4100, L100.0100, L500.4050 #### [facility] [address] [place], [address] BUN/CRE 14.1 RATIO Normal 10-20 [facility] Comment on above: Result Comment: AMENDED REPORT 02/13/251926 BUN/CRE previously reported as: 13.1 RATIO Performed By: #### L 501.9520, L506.1001, L500.4100, L100.0100, L500.4050 #### [facility] [address] [place], [address] Chloride [Moles/Vol] 108 mmol/L Normal 98-108 [facility] Comment on above: Performed By: #### L 501.9520, L506.1001, L500.4100, L100.0100, L500.4050 #### [facility] [address] [place], [address] Creatinine [Mass/Vol] 0.92 mg/dL Normal 0.70-1.20 [facility] Comment on above: Result Comment: AMENDED REPORT 02/13/251926 CREAT,SERUM previously reported as: 0.97 mg/dL Performed By: #### L 501.9520, L506.1001, L500.4100, L100.0100, L500.4050 #### [facility] [address] [place], [address] GAP 14 Normal 5-15 [facility] Comment on above: Performed By: #### L 501.9520, L506.1001, L500.4100, L100.0100, L500.4050 #### [facility] [address] [place], [address] Globulin (S) [Mass/Vol] 2.3 g/dL Normal 2.2-4.2 [facility] Comment on above: Result Comment: AMENDED REPORT 02/13/251926 GLOB previously reported as: 2.4 g/dL Performed By: #### L 501.9520, L506.1001, L500.4100, L100.0100, L500.4050 #### [facility] [address] [place], [address] Glucose [Mass/Vol] 95 mg/dL Normal 70-[address] [facility] Comment on above: Result Comment: AMENDED REPORT 02/13/251926 GLU previously reported as: 98 mg/dL Performed By: #### L 501.9520, L506.1001, L500.4100, L100.0100, L500.4050 #### [facility] [address] [place], [address] Potassium [Moles/Vol] 4.3 mmol/L Normal 3.3-5.1 [facility] Comment on above: Performed By: #### L 501.9520, L506.1001, L500.4100, L100.0100, L500.4050 #### [facility] [address] [place], [address] Sodium [Moles/Vol] 144 mmol/L Normal 133-[address] [facility] Comment on above: Performed By: #### L 501.9520, L506.1001, L500.4100, L100.0100, L500.4050 #### [facility] [address] [place], [address] T PROT 6.3 g/dL Normal 5.9-8.4 [facility] Comment on above: Performed By: #### L 501.9520, L506.1001, L500.4100, L100.0100, L500.4050 #### [facility] [address] [place], [address] Urea nitrogen [Mass/Vol] 13 mg/dL Normal 4-19 [facility] Comment on above: Performed By: #### L 501.9520, L506.1001, L500.4100, L100.0100, L500.4050 #### [facility] [address] [place], [address] Eosinophil percentageOrdered By: Alejandro Jarquin on 02-13-2025 Eosinophils/100 WBC (Bld) 1.9 % 0-5 [facility] Erythrocyte distribution wid th ratioOrdered By: Alejandro Jarquin on 02-13-2025 Erythrocyte distribution width (RBC) [Ratio] 12.5 % 11.6-14.6 [facility] Erythrocyte distribution wid th standard deviationOrdered By: Alejandro Jarquin on 02-13-2025 Erythrocyte distribution width (RBC) [Ratio] 43.4 fl 35.1-43.9 [facility] Glomerular filtration rate ( GFR) estimation/1.73 sq m using serum, plasma, or whole bOrdered By: Alejandro Jarquin on 02-13-2025 GFR/1.73 sq M.predicted among non-blacks MDRD (S/P/Bld) [Vol rate/Area] 57 mL/min/{1.73_m2} Low >60 [facility] Comment on above: mL/min/1.73m2 CKD-EP I Creatinine Equation (2020) Hematocrit Auto (Bld) [Volum e fraction]Ordered By: Alejandro Jarquin on 02-13-2025 Hematocrit (Bld) [Volume fraction] 36.4 % Low 37-47 [facility] Hemoglobin measurementOrdere d By: Alejandro Jarquin on 02-13-2025 Hemoglobin (Bld) [Mass/Vol] 12.7 g/dL 12.0-15.0 [facility] Immature granulocytes/100 WB C Auto (Bld)Ordered By: Alejandro Jarquin on 02-13-2025 Immature granulocytes/100 WBC (Bld) 0.500 % 0.0-0.9 [facility] Comment on above: IG% - Immature Granu locytes (promyelocytes, myelocytes and metamyelocytes) > 1% indicates that a LEFT SHIFT is Present. LDL calc ser/plasOrdered By: Alejandro Jarquin on 02-13-2025 Cholesterol in LDL [Mass/Vol] 151 mg/dL [facility] Comment on above: Zxvwqpogrz=853-546 m g/dL & Higher Yxpw=241 mg/dL or greater Laboratory - Chemistry and C hemistry - challengeOrdered By: Alejandro Jarquin on 02-13-2025 AST [Catalytic activity/Vol] 22 U/L <32 [facility] Lipid Profileon 02-13-2025 CHOL:HDL 3.99 Normal [facility] Comment on above: Performed By: #### L 501.9520, L506.1001, L500.4100, L100.0100, L500.4050 #### [facility] [address] [place], [address] Cholesterol [Mass/Vol] 230 mg/dL High <=200 [facility] Comment on above: Result Comment: Chol esterol level, Desirable <200 mg/dL Borderline high cholesterol 200-239 mg/dL High cholesterol >=240 mg/dL Recommendations of the NCEP Adult Treatment Panel for the following risk-cutoff thresholds for the [place] population. Performed By: #### L 501.9520, L506.1001, L500.4100, L100.0100, L500.4050 #### [facility] [address] [place], [address] Cholesterol in HDL [Mass/Vol] 58 mg/dL Normal [facility] Comment on above: Result Comment: Days[place] onal Cholesterol Education Program (NCEP) guidelines: <40 mg/dL: Low HDL-cholesterol (major risk factor for CHD) >= 60 mg/dL: High HDL-cholesterol (negative risk factor for CHD) HDL-cholesterol is affected by a number of factors, e.g. smoking, exercise, hormones, sex and age. Performed By: #### L 501.9520, L506.1001, L500.4100, L100.0100, L500.4050 #### [facility] [address] [place], [address] Cholesterol in LDL [Mass/Vol] 151 mg/dL Normal [facility] Comment on above: Result Comment: Bord abzdre=060-312 mg/dL Higher Mjvb=915 mg/dL or greater Performed By: #### L 501.9520, L506.1001, L500.4100, L100.0100, L500.4050 #### [facility] [address] [place], [address] Cholesterol in VLDL [Mass/Vol] 22 mg/dL Normal 5-40 [facility] Comment on above: Performed By: #### L 501.9520, L506.1001, L500.4100, L100.0100, L500.4050 #### [facility] [address] [place], [address] Triglyceride [Mass/Vol] 109 mg/dL Normal [facility] Comment on above: Result Comment: The drugs N-Acetylcysteine and Metamizole may falsely depress this assay. Normal range: <150 mg/dL Borderline High: 150-199 mg/dL High: 200-499 mg/dL Very High: >500 mg/dL Performed By: #### L 501.9520, L506.1001, L500.4100, L100.0100, L500.4050 #### [facility] [address] [place], [address] MCV (mean corpuscular volume ) determinationOrdered By: Alejandro Jarquin on 02-13-2025 MCV (RBC) [Entitic vol] 94.3 fL 81-99 [facility] Mean corpuscular hemoglobin (MCH) determinationOrdered By: Alejandro Jarquin on 02-13-2025 MCH (RBC) [Entitic mass] 32.9 pg High 27.0-32.0 [facility] Mean corpuscular hemoglobin concentration (MCHC) determinationOrdered By: Alejandro Jarquin 02-13-2025 MCHC (RBC) [Mass/Vol] 34.9 g/dL 32-36 [facility] Mean platelet volume determi nationOrdered By: Alejandro Jarquin on 02-13-2025 Platelet mean volume (Bld) [Entitic vol] 9.7 fL 6.2-12.0 [facility] Monocyte percentageOrdered B y: Alejandro Jarquin on 02-13-2025 Monocytes/100 WBC (Bld) 6.0 % 0-[address] [facility] Neutrophil percentageOrdered By: Alejandro Jarquin 02-13-2025 Neutrophils/100 WBC (Bld) 64.4 % 47-70 [facility] Nucleated red blood cell per centageOrdered By: Alejandro Jarquin on 02-13-2025 Nucleated RBC/100 WBC (Bld) [Ratio] 0 % 0-5 [facility] Platelet countOrdered By: Chucky Jarquin on 02-13-2025 Platelets (Bld) [#/Vol] 240 10*3/uL 150-450 [facility] Potassium measurement (mass/ volume)Ordered By: Alejandro Jarquin on 02-13-2025 Potassium (Unsp spec) [Mass/Vol] 4.3 mmol/L 3.3-5.1 [facility] RBC Auto (Bld) [#/Vol]Ordere d By: Alejandro Jarquin on 02-13-2025 RBC (Bld) [#/Vol] 3.86 10*6/uL Low 4.2-5.4 [facility] Screening total cholesterol/ high density lipoprotein (HDL) cholesterol ratioOrdered By: Alejandro Jarquin on 02-13-2025 Cholesterol.total/Cholest camelia in HDL [Mass ratio] 3.99 {ratio} [facility] Serum creatinine measurement (mass/volume)Ordered By: Alejandro Jarquin on 02-13-2025 Creatinine [Mass/Vol] 0.92 mg/dL 0.70-1.20 [facility] Comment on above: Previous reported re sult: 0.97 mg/dLEdited by: SHELDON on 02/13/25:1926 AMENDED REPORT 02/13/251926 CREAT,SERUM previously reported as: 0.97 mg/dL Serum globulin measurementOr dered By: Alejandro Jarquin on 02-13-2025 Globulin (S) [Mass/Vol] 2.3 g/dL 2.2-4.2 [facility] Comment on above: Previous reported re sult: 2.4 g/dLEdited by: SHELDON on 02/13/25:1926 AMENDED REPORT 02/13/251926 GLOB previously reported as: 2.4 g/dL Serum glucose measurement (m ass/volume)Ordered By: Alejandro Jarquin on 02-13-2025 Glucose [Mass/Vol] 95 mg/dL 70-[address] [facility] Comment on above: Previous reported re sult: 98 mg/dLEdited by: SHELDON on 02/13/25:1926 AMENDED REPORT 02/13/251926 GLU previously reported as: 98 mg/dL Serum or plasma alanine george otransferase (ALT) measurementOrdered By: Alejandro Jarquin on 02-13-2025 ALT [Catalytic activity/Vol] 11 U/L <35 [facility] Serum or plasma albumin ede urement (mass/volume)Ordered By: Alejandro Jarquin on 02-13-2025 Albumin [Mass/Vol] 4.0 g/dL 3.4-4.[address] [facility] Serum or plasma albumin/glob ulin mass ratioOrdered By: Alejandro Jarquin 02-13-2025 Albumin/Globulin [Mass ratio] 1.7 {ratio} 0.9-2.4 [facility] Serum or plasma alkaline renate sphatase measurementOrdered By: Alejandro Jarquin 02-13-2025 ALP [Catalytic activity/Vol] 56 U/L 35-104 [facility] Serum or plasma calcium ede urement (mass/volume)Ordered By: Alejandro Jarquin 02-13-2025 Calcium [Mass/Vol] 9.4 mg/dL 7.6-11.[address] [facility] Serum or plasma cholesterol in HDL measurement (mass/volume)Ordered By: Alejandro Jarquin 02-13-2025 Cholesterol in HDL [Mass/Vol] 58 mg/dL >40 [facility] Comment on above: National Cholesterol Education Program (NCEP) guidelines:<40 mg/dL: Low HDL-cholesterol (major risk factor for CHD)>= 60 mg/dL: High HDL-cholesterol (negative risk factor for CHD)HDL-cholesterol is affected by a number of factors, e.g. smoking, exercise, hormones, sex and age. Serum or plasma cholesterol measurement (mass/volume)Ordered By: Alejandro Jarquin 02-13-2025 Cholesterol [Mass/Vol] 230 mg/dL High <201 [facility] Comment on above: Cholesterol level, D esirable <200 mg/dLBorderline high cholesterol 200-239 mg/dLHigh cholesterol >=240 mg/dLRecommendations of the NCEP Adult Treatment Panel for the following risk-cutoff thresholds for the [place] population. Serum or plasma urea nitroge n measurement (mass/volume)Ordered By: Alejandro Jarquin 02-13-2025 Urea nitrogen [Mass/Vol] 13 mg/dL 4-19 [facility] Sodium levelOrdered By: Alejandro Jarquin 02-13-2025 Sodium [Moles/Vol] 144 mmol/L 133-[address] [facility] TSH DL <= 0.005 mIU/L QnOrde red By: Alejandro Jarquin 02-13-2025 TSH Qn 1.380 uIU/mL 0.300-4.200 [facility] Comment on above: Previous reported re sult: 1.440 uIU/mLEdited by: SHELDON on 02/13/25:1926 AMENDED REPORT 02/13/251926 TSH previously reported as: 1.440 uIU/mL Thyroid Stim Hormone (TSH)on 02-13-2025 TSH 1.380 uIU/mL Normal 0.300-4.200 [facility] Comment on above: Result Comment: AMENDED REPORT 02/13/251926 TSH previously reported as: 1.440 uIU/mL Performed By: #### L 501.9520, L506.1001, L500.4100, L100.0100, L500.4050 #### [facility] [address] [place], [place], [id number] Total proteinOrdered By: Alejandro Jarquni on 02-13-2025 Protein [Mass/Vol] 6.3 g/dL 5.9-8.[address] [facility] Triglycerides measurementOrd ered By: Alejandro Jarquin on 02-13-2025 Triglyceride [Mass/Vol] 109 mg/dL <[address] [facility] Comment on above: The drugs N-Acetylcy steine and Metamizole may falsely depress this assay. Normal range: <150 mg/dLBorderline High: 150-199 mg/dLHigh: 200-499 mg/dLVery High: >500 mg/dL Vitamin D,25 Hydroxyon 02-13 Vitamin D 25-OH 87.1 ng/mL Normal 30-100 [facility] Comment on above: Result Comment: Zahida min D Status Deficiency: <20 ng/mL (50nmol/L) Insufficiency: 20-30 ng/mL (50-75 nmol/L) Sufficiency: 30-100 ng/mL (75-250 nmol/L) Toxicity: >100 ng/mL (>250 nmol/L) Performed By: #### L 501.9520, L506.1001, L500.4100, L100.0100, L500.4050 #### [facility] [address] [place], [place], [address] White blood cell (WBC) count Ordered By: Alejandro Jarquin on 02-13-2025 WBC (Bld) [#/Vol] 7.3 10*3/uL 4.4-11.[address] [facility] Vitamin D,25 Hydroxyon 08-03 Vitamin D 25-OH 79.3 ng/mL Normal [facility] Comment on above: Result Comment: Zahida min D 25(OH) Status Range Deficiency <20 ng/mL (50nmol/L) Insufficiency 20 - 30 ng/mL (50 - 75 nmol/L) Sufficiency 30 - 100 ng/mL (75 - 250 nmol/L) Toxicity >100 ng/mL (>250 nmol/L) Performed By: #### L 100.0100, L500.4050, L500.4100, L501.9520, L506.1000 #### [facility] [address] [place], [address] CBC W/Diff, Automatedon 07-17 Absolute Lymph 2.89 X10 3/uL Normal 0.83-4.51 [facility] Comment on above: Performed By: #### L 100.0100, L500.4050, L500.4100, L501.9520, L506.1000 #### [facility] [address] [place], [address] Absolute Neut 3.5 X10 3/uL Normal 2.0-7.7 [facility] Comment on above: Performed By: #### L 100.0100, L500.4050, L500.4100, L501.9520, L506.1000 #### [facility] [address] [place], [address] Basophils/100 WBC (Bld) 0.7 % Normal 0-[address] [facility] Comment on above: Performed By: #### L 100.0100, L500.4050, L500.4100, L501.9520, L506.1000 #### [facility] [address] [place], [address] Eosinophils/100 WBC (Bld) 1.7 % Normal 0-5 [facility] Comment on above: Performed By: #### L 100.0100, L500.4050, L500.4100, L501.9520, L506.1000 #### [facility] [address] [place], [address] Erythrocyte distribution width (RBC) [Ratio] 12.7 % Normal 11.6-14.6 [facility] Comment on above: Performed By: #### L 100.0100, L500.4050, L500.4100, L501.9520, L506.1000 #### [facility] [address] [place], [address] Hematocrit (Bld) [Volume fraction] 40.4 % Normal 37-47 [facility] Comment on above: Performed By: #### L 100.0100, L500.4050, L500.4100, L501.9520, L506.1000 #### [facility] [address] [place], [address] Hemoglobin (Bld) [Mass/Vol] 13.6 g/dL Normal 12.0-15.0 [facility] Comment on above: Performed By: #### L 100.0100, L500.4050, L500.4100, L501.9520, L506.1000 #### [facility] [address] [place], [address] IG% 0.300 Normal 0.0-0.9 [facility] Comment on above: Result Comment: IG% - Immature Granulocytes (promyelocytes, myelocytes and metamyelocytes) > 1% indicates that a LEFT SHIFT is Present. Performed By: #### L 100.0100, L500.4050, L500.4100, L501.9520, L506.1000 #### [facility] [address] [place], [address] Lymphocytes/100 WBC (Bld) 40.5 % Normal 19-41 [facility] Comment on above: Performed By: #### L 100.0100, L500.4050, L500.4100, L501.9520, L506.1000 #### [facility] [address] [place], [address] MCH (RBC) [Entitic mass] 31.9 pg Normal 27.0-32.0 [facility] Comment on above: Performed By: #### L 100.0100, L500.4050, L500.4100, L501.9520, L506.1000 #### [facility] [address] [place], [address] MCHC (RBC) [Mass/Vol] 33.7 g/dL Normal 32-36 [facility] Comment on above: Performed By: #### L 100.0100, L500.4050, L500.4100, L501.9520, L506.1000 #### [facility] [address] [place], [address] MCV (RBC) [Entitic vol] 94.8 fL Normal 81-99 [facility] Comment on above: Performed By: #### L 100.0100, L500.4050, L500.4100, L501.9520, L506.1000 #### [facility] [address] [place], [address] Monocytes/100 WBC (Bld) 7.2 % Normal 0-10 [facility] Comment on above: Performed By: #### L 100.0100, L500.4050, L500.4100, L501.9520, L506.1000 #### [facility] [address] [place], [address] Neutrophils/100 WBC (Bld) 49.6 % Normal 47-70 [facility] Comment on above: Performed By: #### L 100.0100, L500.4050, L500.4100, L501.9520, L506.1000 #### [facility] [address] [place], [address] Nucleated RBC (Bld) [#/Vol] 0 10*3/uL Normal 0-5 [facility] Comment on above: Performed By: #### L 100.0100, L500.4050, L500.4100, L501.9520, L506.1000 #### [facility] [address] [place], [address] Platelet mean volume (Bld) [Entitic vol] 9.8 fL Normal 6.2-12.0 [facility] Comment on above: Performed By: #### L 100.0100, L500.4050, L500.4100, L501.9520, L506.1000 #### [facility] [address] [place], [address] Platelets (Bld) [#/Vol] 264 10*3/uL Normal 150-450 [facility] Comment on above: Performed By: #### L 100.0100, L500.4050, L500.4100, [id number], L506.1000 #### [facility] [address] [place], [address] RBC (Bld) [#/Vol] 4.26 10*6/uL Normal 4.2-5.4 [facility] Comment on above: Performed By: #### L 100.0100, L500.4050, L500.4100, L501.9520, L506.1000 #### [facility] [address] [place], [address] RDW SD 44.0 fl High 35.1-43.9 [facility] Comment on above: Performed By: #### L 100.0100, L500.4050, L500.4100, [id number], L506.1000 #### [facility] [address] [place], [address] WBC (Bld) [#/Vol] 7.1 10*3/uL Normal 4.4-11.[address] [facility] Comment on above: Performed By: #### L 100.0100, L500.4050, L500.4100, [id number], L506.1000 #### [facility] [address] [place], [address] Comprehensive Metabolic Prof ilon 08-02-2024 Albumin [Mass/Vol] 3.7 g/dL Normal 3.2-5.[address] [facility] Comment on above: Performed By: #### L 100.0100, L500.4050, L500.4100, L501.9520, L506.1000 #### [facility] [address] [place], [address] Albumin/Globulin [Mass ratio] 1.1 {ratio} Normal 0.9-2.4 [facility] Comment on above: Performed By: #### L 100.0100, L500.4050, L500.4100, L501.9520, L506.1000 #### [facility] [address] [place], [address] ALK P 64 U/L Normal 45-117 [facility] Comment on above: Performed By: #### L 100.0100, L500.4050, L500.4100, [id number], L506.1000 #### [facility] [address] [place], [address] ALT [Catalytic activity/Vol] 13 U/L Normal 13-56 [facility] Comment on above: Performed By: #### L 100.0100, L500.4050, L500.4100, L501.9520, L506.1000 #### [facility] [address] [place], [address] AST [Catalytic activity/Vol] 16 U/L Normal 15-37 [facility] Comment on above: Performed By: #### L 100.0100, L500.4050, L500.4100, L501.9520, L506.1000 #### [facility] [address] [place], [address] Bilirubin [Mass/Vol] 0.40 mg/dL Normal 0.20-1.00 [facility] Comment on above: Result Comment: For patients on eltrombopag therapy, use of Dimension Bryan TBIL is not recommended. Performed By: #### L 100.0100, L500.4050, L500.4100, L501.9520, L506.1000 #### [facility] [address] [place], [address] BUN/CRE 29.6 RATIO High 10-20 [facility] Comment on above: Performed By: #### L 100.0100, L500.4050, L500.4100, [id number], L506.1000 #### [facility] [address] [place], [address] CA,Total 9.3 mg/dL Normal 8.5-10.1 [facility] Comment on above: Performed By: #### L 100.0100, L500.4050, L500.4100, L501.9520, L506.1000 #### [facility] [address] [place], [address] Chloride [Moles/Vol] 112 mmol/L High 98-107 [facility] Comment on above: Performed By: #### L 100.0100, L500.4050, L500.4100, L501.9520, L506.1000 #### [facility] [address] [place], [address] CO2 [Moles/Vol] 26.0 mmol/L Normal 21.0-32.0 [facility] Comment on above: Performed By: #### L 100.0100, L500.4050, L500.4100, L501.9520, L506.1000 #### [facility] [address] [place], [address] Creatinine [Mass/Vol] 0.81 mg/dL Normal 0.55-1.02 [facility] Comment on above: Result Comment: The validity of the calculated GFR GFRAA in patients over 70 years has not been determined. Clinical correlation is essential. Performed By: #### L 100.0100, L500.4050, L500.4100, L501.9520, L506.1000 #### [facility] [address] [place], [address] EST GFR - AA 86 mL/min Normal >60 [facility] Comment on above: Result Comment: Afri can Lithuanian GFR Calc Performed By: #### L 100.0100, L500.4050, L500.4100, L501.9520, L506.1000 #### [facility] [address] [place], [address] GAP 5 Normal 5-15 [facility] Comment on above: Performed By: #### L 100.0100, L500.4050, L500.4100, L501.9520, L506.1000 #### [facility] [address] [place], [address] GFR/1.73 sq M.predicted among non-blacks MDRD (S/P/Bld) [Vol rate/Area] 71 mL/min/{1.73_m2} Normal >60 [facility] Comment on above: Result Comment: Non- GFR Calc Performed By: #### L 100.0100, L500.4050, L500.4100, L501.9520, L506.1000 #### [facility] [address] [place], [address] Globulin (S) [Mass/Vol] 3.3 g/dL Normal 2.2-4.2 [facility] Comment on above: Performed By: #### L 100.0100, L500.4050, L500.4100, L501.9520, L506.1000 #### [facility] [address] [place], [address] Glucose [Mass/Vol] 104 mg/dL Normal 74-[address] [facility] Comment on above: Result Comment: Fast ing Glucose result from 100 to 125 mg/dL suggests IMPAIRED HOMEOSTASIS per A.D.A. criteria. Performed By: #### L 100.0100, L500.4050, L500.4100, L501.9520, L506.1000 #### [facility] [address] [place], [address] Potassium [Moles/Vol] 3.7 mmol/L Normal 3.5-5.1 [facility] Comment on above: Performed By: #### L 100.0100, L500.4050, L500.4100, L501.9520, L506.1000 #### [facility] [address] [place], [address] Sodium [Moles/Vol] 143 mmol/L Normal 136-[address] [facility] Comment on above: Performed By: #### L 100.0100, L500.4050, L500.4100, L501.9520, L506.1000 #### [facility] [address] [place], [address] T PROT 7.0 g/dL Normal 6.4-8.2 [facility] Comment on above: Performed By: #### L 100.0100, L500.4050, L500.4100, L501.9520, L506.1000 #### [facility] [address] [place], [address] Urea nitrogen [Mass/Vol] 24 mg/dL High 7-18 [facility] Comment on above: Performed By: #### L 100.0100, L500.4050, L500.4100, L501.9520, L506.1000 #### [facility] [address] [place], [address] Lipid Profileon 08-02-2024 Cholesterol [Mass/Vol] 249 mg/dL High 200 [facility] Comment on above: Result Comment: <200 mg/dL Desirable 200-240 mg/dL Borderline >240 mg/dL High Risk Performed By: #### L 100.0100, L500.4050, L500.4100, L501.9520, L506.1000 #### [facility] [address] [place], [address] Cholesterol in HDL [Mass/Vol] 73 mg/dL Normal [facility] Comment on above: Result Comment: The drugs N-Acetylcysteine and Metamizole may falsely depress this assay. Reference Range HDL <40 mg/dL Low HDL Cholesterol HDL >or= 60 mg/dL High HDL Cholesterol Performed By: #### L 100.0100, L500.4050, L500.4100, L501.9520, L506.1000 #### [facility] [address] [place], [address] Cholesterol in LDL [Mass/Vol] 143 mg/dL High 0-130 [facility] Comment on above: Performed By: #### L 100.0100, L500.4050, L500.4100, L501.9520, L506.1000 #### [facility] [address] [place], [address] Cholesterol in VLDL [Mass/Vol] 33 mg/dL Normal 5-40 [facility] Comment on above: Performed By: #### L 100.0100, L500.4050, L500.4100, L501.9520, L506.1000 #### [facility] [address] [place], [address] Triglyceride [Mass/Vol] 166 mg/dL Normal [facility] Comment on above: Result Comment: The drugs N-Acetylcysteine and Metamizole may falsely depress this assay. Serum Triglycerides Reference Interval Normal <150 mg/dL Borderline high 150 - 199 mg/dL High 200 - 499 mg/dL Very High > or = 500 mg/dL Performed By: #### L 100.0100, L500.4050, L500.4100, L501.9520, L506.1000 #### [facility] [address] [place], [address] Thyroid Stim Hormone (TSH)on 08-02-2024 TSH 1.250 uIU/mL Normal 0.358-3.740 [facility] Comment on above: Performed By: #### L 100.0100, L500.4050, L500.4100, L501.9520, L506.1000 #### [facility] [address] [place], [address] Absolute lymphocyte countOrd ered By: Alejandro Jarquin on 02-13-2024 Lymphocytes Auto (Unsp spec) [#/Vol] 1.78 10*3/uL 0.83-4.51 [facility] Automated lymphocyte count a s percentage of total leukocytesOrdered By: Alejandro Jarquin on 02-13-2024 Lymphocytes/100 WBC Auto (Unsp spec) 31.7 % 19-41 [facility] Basophil percentageOrdered B y: Alejandro Jarquin on 02-13-2024 Basophils/100 WBC (Bld) 0.7 % 0-[address] [facility] Bilirubin [Mass/Vol] 0.30 mg/dL 0.20-1.00 [facility] Comment on above: For patients on eltr ombopag therapy, use of Dimension Bryan TBIL is not recommended. Chloride [Moles/Vol] 111 mmol/L 98-107 [facility] Cholesterol [Mass/Vol] 228 mg/dL <200 [facility] Comment on above: <200 mg/dL Desirable 200-240 mg/dL Borderline >240 mg/dL High Risk Eosinophils/100 WBC (Bld) 3.9 % 0-5 [facility] Glucose [Mass/Vol] 105 mg/dL 74-[address] [facility] Comment on above: Fasting Glucose resu lt from 100 to 125 mg/dL suggests IMPAIRED HOMEOSTASIS per A.D.A. criteria. Hemoglobin (Bld) [Mass/Vol] 12.6 g/dL 12.0-15.0 [facility] Monocytes/100 WBC (Bld) 6.4 % 0-[address] [facility] Neutrophils (Bld) [#/Vol] 3.2 10*3/uL 2.0-7.7 [facility] Neutrophils/100 WBC (Bld) 57.1 % 47-70 [facility] Potassium [Moles/Vol] 4.0 mmol/L 3.5-5.1 [facility] Protein [Mass/Vol] 6.5 g/dL 6.4-8.[address] [facility] Sodium [Moles/Vol] 143 mmol/L 136-[address] [facility] Triglyceride [Mass/Vol] 123 mg/dL <[address] [facility] Comment on above: The drugs N-Acetylcy steine and Metamizole may falsely depress this assay.Serum Triglycerides Reference Interval Normal <150 mg/dL Borderline high 150 - 199 mg/dL High 200 - 499 mg/dL Very High > or = 500 mg/dL WBC (Bld) [#/Vol] 5.6 10*3/uL 4.4-11.[address] [facility] Determination of erythrocyte mean corpuscular volume (MCV)Ordered By: Alejandro Jarquin on 02-13-2024 MCV (RBC) [Entitic vol] 93.9 fL 81-[address] [facility] Erythrocyte distribution wid th ratioOrdered By: Alejandro Jarquin 02-13-2024 Erythrocyte distribution width (RBC) [Ratio] 12.2 % 11.6-14.6 [facility] Erythrocyte distribution wid th standard deviationOrdered By: Alejandro Jarquin 02-13-2024 Erythrocyte distribution width (RBC) [Entitic vol] 42.6 fL 35.1-43.[address] [facility] Hematocrit Auto (Bld) [Volum e fraction]Ordered By: Alejandro Jarquin 02-13-2024 Hematocrit (Bld) [Volume fraction] 37.0 % 37-47 [facility] Immature granulocytes/100 WB C Auto (Bld)Ordered By: Alejandro Jarquin 02-13-2024 Immature granulocytes/100 WBC (Bld) 0.200 % 0.0-0.9 [facility] Comment on above: IG% - Immature Granu locytes (promyelocytes, myelocytes and metamyelocytes) > 1% indicates that a LEFT SHIFT is Present. Laboratory - Chemistry and C hemistry - challengeOrdered By: Alejandro Jarquin on 02-13-2024 Albumin/Globulin [Mass ratio] 1.1 {ratio} 0.9-2.4 [facility] ALP [Catalytic activity/Vol] 56 U/L 45-117 [facility] ALT [Catalytic activity/Vol] 13 U/L 13-56 [facility] Cholesterol in HDL [Mass/Vol] 56 mg/dL >40 [facility] Comment on above: The drugs N-Acetylcy steine and Metamizole may falsely depress this assay. Reference Range HDL <40 mg/dL Low HDL Cholesterol HDL >or= 60 mg/dL High HDL Cholesterol Cholesterol in LDL [Mass/Vol] 147 mg/dL 0-130 [facility] CO2 [Moles/Vol] 28.0 mmol/L 21.0-32.0 [facility] Globulin (S) [Mass/Vol] 3.1 g/dL 2.2-4.[address] [facility] Urea nitrogen/Creatinine [Mass ratio] 18.7 mg/mg 10-20 [facility] - Hematology and Cell countsOrdered By: Alejandro Jarquin on 02-13-2024 MCH (RBC) [Entitic mass] 32.0 pg 27.0-32.0 [facility] MCHC (RBC) [Mass/Vol] 34.1 g/dL 32-36 [facility] Nucleated RBC/100 WBC (Bld) [Ratio] 0 % 0-5 [facility] Platelet mean volume (Bld) [Entitic vol] 9.5 fL 6.2-12.0 [facility] Platelets (Bld) [#/Vol] 243 10*3/uL 150-450 [facility] No Panel InformationOrdered By: Alejandro Jarquin on 02-13-2024 Estimated GFR (MDRD) Amer 75 mL/min >60 [facility] Comment on above: GFR Calc Estimated GFR (MDRD) Non-Af Amer 62 mL/min >60 [facility] Comment on above: Non- GFR Calc Vitamin D 25-Hydroxy 78.6 ng/mL [facility] Comment on above: Vitamin D 25(OH) Sta tus Range Deficiency <20 ng/mL (50nmol/L) Insufficiency 20 - 30 ng/mL (50 - 75 nmol/L) Sufficiency 30 - 100 ng/mL (75 - 250 nmol/L) Toxicity >100 ng/mL (>250 nmol/L) VLDL Cholesterol 25 mg/dL 5-40 [facility] RBC Auto (Bld) [#/Vol]Ordere d By: Alejandro Jarquin on 02-13-2024 RBC (Bld) [#/Vol] 3.94 10*6/uL 4.2-5.4 [facility] Serum or plasma calcium ede urement (mass/volume)Ordered By: Alejanrdo Jarquin on 02-13-2024 Calcium [Mass/Vol] 9.2 mg/dL 8.5-10.[address] [facility] Serum or plasma creatinine m easurement (mass/volume)Ordered By: Alejandro Jarquin on 02-13-2024 Creatinine [Mass/Vol] 0.91 mg/dL 0.55-1.02 [facility] Comment on above: The validity of the calculated GFR & GFRAA in patients over 70 years has not been determined. Clinical correlation is essential. Serum or plasma thyroid stim ulating hormone (TSH) measurement (units/volume)Ordered By: Alejandro Jarquin on 02-13-2024 TSH Qn 1.38 uIU/mL 0.358-3.74 [facility] Serum or plasma urea nitroge n measurement (mass/volume)Ordered By: Alejandro Jarquin on 02-13-2024 Urea nitrogen [Mass/Vol] 17 mg/dL 7-18 [facility] Thin prep Papanicolaou smear with manual screeningOrdered By: Alejandro Jarquin on 02-13-2024 Thin prep Papanicolaou smear with manual screening 3.4 g/dL 3.2-5.0 [facility] Thin prep Papanicolaou smear with manual screening 17 U/L 15-37 [facility] Thin prep Papanicolaou smear with manual screening 4 5-15 [facility] Absolute lymphocyte countOrd ered By: Alejandro Jarquin on 07-13-2023 Lymphocytes Auto (Unsp spec) [#/Vol] 1.84 10*3/uL 0.83-4.51 [facility] Basophil percentageOrdered B y: Alejandro Jarquin on 07-13-2023 Basophils/100 WBC (Bld) 0.7 % 0-[address] [facility] Bilirubin [Mass/Vol] 0.50 mg/dL 0.20-1.00 [facility] Comment on above: For patients on eltr ombopag therapy, use of Dimension Bryan TBIL is not recommended. Chloride [Moles/Vol] 111 mmol/L 98-107 [facility] Eosinophils/100 WBC (Bld) 2.7 % 0-5 [facility] Glucose [Mass/Vol] 100 mg/dL 74-[address] [facility] Comment on above: Fasting Glucose resu lt from 100 to 125 mg/dL suggests IMPAIRED HOMEOSTASIS per A.D.A. criteria. Neutrophils (Bld) [#/Vol] 3.0 10*3/uL 2.0-7.7 [facility] Neutrophils/100 WBC (Bld) 54.5 % 47-70 [facility] Potassium [Moles/Vol] 3.9 mmol/L 3.5-5.1 [facility] Protein [Mass/Vol] 6.6 g/dL 6.4-8.[address] [facility] Sodium [Moles/Vol] 141 mmol/L 136-[address] [facility] WBC (Bld) [#/Vol] 5.5 10*3/uL 4.4-11.[address] [facility] Blood erythrocytes count (nu mber/volume)Ordered By: Alejandro Jarquin on 07-13-2023 RBC (Bld) [#/Vol] 3.91 10*6/uL 4.2-5.4 [facility] Blood hemoglobin measurement (mass/volume)Ordered By: Alejandro Jarquin on 07-13-2023 Hemoglobin (Bld) [Mass/Vol] 12.3 g/dL 12.0-15.0 [facility] Blood lymphocytes/100 leukoc ytesOrdered By: Alejandro Jarquin on 07-13-2023 Lymphocytes/100 WBC (Bld) 33.4 % 19-41 [facility] Blood monocytes/100 leukocyt esOrdered By: Alejandro Jarquin on 07-13-2023 Monocytes/100 WBC (Bld) 8.5 % 0-[address] [facility] Blood platelet mean volumeOr dered By: Alejandro Jarquin on 07-13-2023 Platelet mean volume (Bld) [Entitic vol] 9.9 fL 6.2-12.0 [facility] Determination of erythrocyte mean corpuscular volume (MCV)Ordered By: Alejandro Jarquin on 07-13-2023 MCV (RBC) [Entitic vol] 96.7 fL 81-[address] [facility] Hematocrit Auto (Bld) [Volum e fraction]Ordered By: Alejandro Britton on 07-13-2023 Hematocrit (Bld) [Volume fraction] 37.8 % 37-47 [facility] - Chemistry and C hemistry - challengeOrdered [facility] ALP [Catalytic activity/Vol] 50 U/L 45-117 [facility] ALT [Catalytic activity/Vol] 19 U/L 13-56 [facility] CO2 [Moles/Vol] 26.0 mmol/L 21.0-32.0 [facility] Globulin (S) [Mass/Vol] 3.2 g/dL 2.2-4.2 [facility] Urea nitrogen/Creatinine [Mass ratio] 18.7 mg/mg 10-20 [facility] - Hematology and Cell countsOrdered By: Alejandro Jarquin 07-13-2023 Erythrocyte distribution width (RBC) [Entitic vol] 43.7 fL 35.1-43.[address] [facility] Erythrocyte distribution width (RBC) [Ratio] 12.5 % 11.6-14.6 [facility] Immature granulocytes/100 WBC (Bld) 0.200 % 0.0-0.9 [facility] Comment on above: IG% - Immature Granu locytes (promyelocytes, myelocytes and metamyelocytes) > 1% indicates that a LEFT SHIFT is Present. MCH (RBC) [Entitic mass] 31.5 pg 27.0-32.0 [facility] Nucleated RBC/100 WBC (Bld) [Ratio] 0 % 0-5 [facility] MCHC Auto (RBC) [Mass/Vol]Or dered By: Alejandro Jarquin on 07-13-2023 MCHC (RBC) [Mass/Vol] 32.5 g/dL 32-36 [facility] No Panel InformationOrdered By: Alejandro Jarquin on 07-13-2023 Estimated GFR (MDRD) Amer 103 mL/min >60 [facility] Comment on above: GFR Calc Estimated GFR (MDRD) Non-Af Amer 85 mL/min >60 [facility] Comment on above: Non- GFR Calc Thyroid Stimulating Hormone (TSH) 2.17 uIU/mL 0.358-3.74 [facility] Vitamin D 25-Hydroxy 79.8 ng/mL [facility] Comment on above: Vitamin D 25(OH) Sta tus Range Deficiency <20 ng/mL (50nmol/L) Insufficiency 20 - 30 ng/mL (50 - 75 nmol/L) Sufficiency 30 - 100 ng/mL (75 - 250 nmol/L) Toxicity >100 ng/mL (>250 nmol/L) Platelets bldOrdered By: Alejandro Jarquin on 07-13-2023 Platelets (Bld) [#/Vol] 231 10*3/uL 150-450 [facility] Serum or plasma albumin ede urement (mass/volume)Ordered By: Alejandro Jarquin on 07-13-2023 Albumin [Mass/Vol] 3.4 g/dL 3.2-5.[address] [facility] Serum or plasma albumin/glob ulin mass ratioOrdered By: Alejandro Jarquin on 07-13-2023 Albumin/Globulin [Mass ratio] 1.1 {ratio} 0.9-2.4 [facility] Serum or plasma calcium ede urement (mass/volume)Ordered By: Alejandro Jarquin on 07-13-2023 Calcium [Mass/Vol] 8.8 mg/dL 8.5-10.[address] [facility] Serum or plasma creatinine m easurement (mass/volume)Ordered By: Alejandro Jarquin on 07-13-2023 Creatinine [Mass/Vol] 0.70 mg/dL 0.55-1.02 [facility] Comment on above: The validity of the calculated GFR & GFRAA in patients over 70 years has not been determined. Clinical correlation is essential. Serum or plasma urea nitroge n measurement (mass/volume)Ordered By: Alejandro Jarquin on 07-13-2023 Urea nitrogen [Mass/Vol] 13 mg/dL 7-18 [facility] Thin prep Papanicolaou smear with manual screeningOrdered By: Alejandro Jarquin on 07-13-2023 Thin prep Papanicolaou smear with manual screening 18 U/L 15-37 [facility] Thin prep Papanicolaou smear with manual screening 4 5-15 [facility] Absolute lymphocyte countOrd ered By: Dr. Jarquin on 01-05-2023 Lymphocytes Auto (Unsp spec) [#/Vol] 1.80 10*3/uL 0.83-4.51 [facility] Basophil percentageOrdered B y: Dr. Jarquin on 01-05-2023 Basophils/100 WBC (Bld) 0.6 % 0-[address] [facility] Bilirubin [Mass/Vol] 0.30 mg/dL 0.20-1.00 [facility] Comment on above: For patients on eltr ombopag therapy, use of Dimension Bryan TBIL is not recommended. Chloride [Moles/Vol] 110 mmol/L 98-107 [facility] Eosinophils/100 WBC (Bld) 2.7 % 0-5 [facility] Glucose [Mass/Vol] 94 mg/dL 74-[address] [facility] Neutrophils (Bld) [#/Vol] 2.9 10*3/uL 2.0-7.7 [facility] Neutrophils/100 WBC (Bld) 54.4 % 47-70 [facility] Potassium [Moles/Vol] 3.5 mmol/L 3.5-5.1 [facility] Protein [Mass/Vol] 6.7 g/dL 6.4-8.[address] [facility] Sodium [Moles/Vol] 144 mmol/L 136-[address] [facility] WBC (Bld) [#/Vol] 5.3 10*3/uL 4.4-11.[address] [facility] Blood erythrocytes count (nu mber/volume)Ordered By: Dr. Jarquin on 01-05-2023 RBC (Bld) [#/Vol] 4.17 10*6/uL 4.2-5.4 [facility] Blood hemoglobin measurement (mass/volume)Ordered By: Dr. Jarquin on 01-05-2023 Hemoglobin (Bld) [Mass/Vol] 13.3 g/dL 12.0-15.0 [facility] Blood lymphocytes/100 leukoc ytesOrdered By: Dr. Jarquin on 01-05-2023 Lymphocytes/100 WBC (Bld) 34.1 % 19-41 [facility] Blood monocytes/100 leukocyt esOrdered By: Dr. Jarquin on 01-05-2023 Monocytes/100 WBC (Bld) 8.0 % 0-[address] [facility] Blood platelet mean volumeOr dered By: Dr. Jarquin on 01-05-2023 Platelet mean volume (Bld) [Entitic vol] 9.8 fL 6.2-12.0 [facility] Determination of erythrocyte mean corpuscular volume (MCV)Ordered By: Dr. Jarquin on 01-05-2023 MCV (RBC) [Entitic vol] 95.9 fL 81-[address] [facility] Hematocrit Auto (Bld) [Volum e fraction]Ordered By: Dr. Jarquin on 01-05-2023 Hematocrit (Bld) [Volume fraction] 40.0 % 37-47 [facility] - Chemistry and C hemistry - challengeOrdered By: Dr. Jarquin on 01-05-2023 ALP [Catalytic activity/Vol] 58 U/L 45-117 [facility] ALT [Catalytic activity/Vol] 17 U/L 13-56 [facility] CO2 [Moles/Vol] 27.0 mmol/L 21.0-32.0 [facility] Globulin (S) [Mass/Vol] 3.2 g/dL 2.2-4.2 [facility] Urea nitrogen/Creatinine [Mass ratio] 20.9 mg/mg 10-20 [facility] - Hematology and Cell countsOrdered By: Dr. Jarquin on 01-05-2023 Erythrocyte distribution width (RBC) [Entitic vol] 42.6 fL 35.1-43.[address] [facility] Erythrocyte distribution width (RBC) [Ratio] 12.1 % 11.6-14.6 [facility] Immature granulocytes/100 WBC (Bld) 0.200 % 0.0-0.9 [facility] Comment on above: IG% - Immature Granu locytes (promyelocytes, myelocytes and metamyelocytes) > 1% indicates that a LEFT SHIFT is Present. MCH (RBC) [Entitic mass] 31.9 pg 27.0-32.0 [facility] Nucleated RBC/100 WBC (Bld) [Ratio] 0 % 0-5 [facility] MCHC Auto (RBC) [Mass/Vol]Or dered By: Dr. Jarquin on 01-05-2023 MCHC (RBC) [Mass/Vol] 33.3 g/dL 32-36 [facility] No Panel InformationOrdered By: Dr. Jarquin on 01-05-2023 Estimated GFR (MDRD) Amer 86 mL/min >60 [facility] Comment on above: GFR Calc Estimated GFR (MDRD) Non-Af Amer 71 mL/min >60 [facility] Comment on above: Non- GFR Calc Thyroid Stimulating Hormone (TSH) 2.12 uIU/mL 0.358-3.74 [facility] Vitamin D 25-Hydroxy 72.3 ng/mL [facility] Comment on above: Vitamin D 25(OH) Sta tus Range Deficiency <20 ng/mL (50nmol/L) Insufficiency 20 - 30 ng/mL (50 - 75 nmol/L) Sufficiency 30 - 100 ng/mL (75 - 250 nmol/L) Toxicity >100 ng/mL (>250 nmol/L) Platelets bldOrdered By: Dr. Jarquin on 01-05-2023 Platelets (Bld) [#/Vol] 249 10*3/uL 150-450 [facility] Serum or plasma albumin ede urement (mass/volume)Ordered By: Dr. Jarquin on 01-05-2023 Albumin [Mass/Vol] 3.5 g/dL 3.2-5.[address] [facility] Serum or plasma albumin/glob ulin mass ratioOrdered By: Dr. Jarquin on 01-05-2023 Albumin/Globulin [Mass ratio] 1.1 {ratio} 0.9-2.4 [facility] Serum or plasma calcium ede urement (mass/volume)Ordered By: Dr. Jarquin on 01-05-2023 Calcium [Mass/Vol] 9.1 mg/dL 8.5-10.[address] [facility] Serum or plasma creatinine m easurement (mass/volume)Ordered By: Dr. Jarquin on 01-05-2023 Creatinine [Mass/Vol] 0.82 mg/dL 0.55-1.02 [facility] Comment on above: The validity of the calculated GFR & GFRAA in patients over 70 years has not been determined. Clinical correlation is essential. Serum or plasma urea nitroge n measurement (mass/volume)Ordered By: Dr. Jarquin on 01-05-2023 Urea nitrogen [Mass/Vol] 17 mg/dL 7-18 [facility] Thin prep Papanicolaou smear with manual screeningOrdered By: Dr. Jarquin on 01-05-2023 Thin prep Papanicolaou smear with manual screening 19 U/L 15-37 [facility] Thin prep Papanicolaou smear with manual screening 7 5-15 [facility] Encounters Encounter Date Encounter Type Care Provider Facility Start: 02-26-2025 ambulatory [facility] Facility:[facility] [place] Start: 02-13-2025 End: 02-13-[address] Alejandro Jarquin MD Work Phone: [facility] Work Phone: Start: 02-13-2025 End: 02-13-[address] Alejandro Jarquin MD -Laboratory Work Phone: Start: 02-13-2025 End: 02-13-2025 ambulatory [facility] Facility:[facility] Start: 08-02-2024 End: 08-02-2024 ambulatory [facility] Facility:[facility] Start: 02-13-2024 End: 02-13-2024 ambulatory [facility] Work Phone: Start: 02-13-2024 End: 02-13-2024 Patient encounter procedure [facility] Work Phone: Start: 07-13-2023 End: 07-13-2023 ambulatory [facility] Work Phone: Start: 07-13-2023 End: 07-13-2023 Patient encounter procedure [facility] Phy [facility] 3rd Flr Start: 01-05-2023 End: 01-05-2023 ambulatory [facility] Work Phone: Start: 01-05-2023 End: 01-05-2023 Patient encounter procedure [facility]rd Fl[facility] Procedures Date Procedure Procedure Detail Performing Clinician Start: 02-13-2025 Vitamin D, 25-hydrox y measurement Dr. Alejandro Jarquin MD Work Phone: Comment on above: Vitamin D StatusDefi ciency: <20 ng/mL (50nmol/L)Insufficiency: 20-30 ng/mL (50-75 nmol/L)Sufficiency: 30-100 ng/mL (75-250 nmol/L)Toxicity: >100 ng/mL (>250 nmol/L) Payers Date Payer Category Payer Self-pay [id number] 2016 Medicare [id number] Unknown [id number] Unknown [id number] Unknown [id number] Social History Date Type Detail [facility] Work Phone: Start: 1940 Sex Assigned At Female [facility] if [facility] Work Phone: Evaluation note Note Date & Type Note Facility Evaluation note No assessment information availa ble [facility] Work Phone: Reason for referral (narrative) Note Date & Type Note Facility Reason for referral (narrative) No reason for referral information available [facility] Work Phone: Summary Purpose Family History No [...] section and content) DATE CREATED AUTHOR 02/22/2025 [facility] FOR RECORDS PERTAINING TO PATIENTS WHO ARE [...] BE BASED ON THE PRIMARY CLINICAL RECORDS. [employer] provides no warranty or guarantee of the accuracy or completeness of information in this document.
[2025-04-26 00:24] LABS: Hematocrit 35.1 % (37-47); Hemoglobin 12.1 g/dL (12.0-15.0); Immature Granulocytes Count 0.060 X10^3/uL (0.0-0.0); Mean Corp Hgb Conc 34.5 g/dL (32-36); Mean Corpuscular Volume 92.9 fL (81-99); Mean Platelet Vol. 10.4 fl (6.2-12.0); NRBC Flagged by Analyzer 0 % (0-5); Platelet Count 245 K/mm3 (150-450); RBC Distribution Width CV 12.4 % (11.6-14.6); RBC Distribution Width SD 42.0 fl (35.1-43.9); Red Blood Count 3.78 M/mm3 (4.2-5.4); White Blood Count 7.4 K/mm3 (4.4-11.0)
[2025-04-26 00:47] VITALS: BMI 20.4
[2025-04-26 01:00] VITALS: BP 140/54; PULSE 67; RESP 16; TEMP 36.6; O2SAT 100
[2025-04-26 01:12] LABS: Anion Gap 13 (5-15); BUN 18 mg/dL (4-19); BUN/Creat Ratio 28.5 RATIO (10-20); Calcium,Total 9.0 mg/dL (7.6-11.0); Carbon Dioxide 19.4 mmol/L (21.0-32.0); Chloride 107 mmol/L (98-108); Estimated Creatinine Clearance 40.90 ml/min (50-250); Glucose 124 mg/dL (70-99); Potassium 3.5 mmol/L (3.3-5.1)
[2025-04-26 01:27] LABS: PTHIN 43 pg/mL (11-61)
[2025-04-26 01:44] LABS: Magnesium 1.9 mg/dL (1.5-2.2); Vitamin D,25 Hydroxy 94.5 ng/mL (30-100)
[2025-04-26 01:58] LABS: AST(SGOT) 24 U/L (<=31); Alanine Aminotransfer ALT/SGPT 9 U/L (<=34); Albumin, Serum 3.6 g/dL (3.4-4.8); Alkaline Phosphatase 74 U/L (35-104); Bilirubin, Direct < 0.08 mg/dL (0.00-0.30); Globulin 2.3 g/dL (2.2-4.2)
[2025-04-26 05:59] VITALS: BP 107/64; PULSE 87; RESP 16; TEMP 36.6; O2SAT 96
--- NOTE | 2025-04-26 07:28 | PN.HOSP_ITS ---
Reason for Visit Reason for Visit: Diagnoses Other malaise (04/25/25) Unspecified fracture of upper end of right humerus, initial encounter for closed fracture (04/25/25) Unspecified fracture of upper end of left humerus, initial encounter for closed fracture (04/25/25) Subjective Subjective Had a lot of difficulty with therapy due to pain. They are going to try to reattempt later after she is getting some pain medication. Complains of feeling dizzy. Objective Data Objective Data Vital Signs: Vital Signs Temp Pulse Resp BP Pulse Ox O2 Del Method 36.6 C 87 16 107/64 96 Room Air 04/26/25 05:59 04/26/25 05:59 04/26/25 05:59 04/26/25 05:59 04/26/25 05:59 04/26/25 05:59 Oxygen Delivery Method Room Air Weight: 52.3 kg Body Mass Index (BMI) 20.4 Lab / Micro Data 04/25/25 21:50 04/25/25 23:56 Labs: Laboratory Results - last 24 hr 04/25/25 21:50: WBC 7.4, RBC 3.78 L, Hgb 12.1, Hct 35.1 L, MCV 92.9, MCH 32.0, MCHC 34.5, RDW Std Deviation 42.0, RDW Coeff of Noble 12.4, Plt Count 245, MPV 10.4, Immature Gran % (Auto) 0.800, Neut % (Auto) 44.0 L, Lymph % (Auto) 46.6 H, [place] % (Auto) 5.8, Eos % (Auto) 2.3, Baso % (Auto) 0.5, Absolute Neuts (auto) 3.3, Absolute Lymphs (auto) 3.45, Nucleated RBC % 0, PTH Intact 43 04/25/25 23:56: Sodium 140, Potassium 3.5, Chloride 107, Carbon Dioxide 19.4 L, Anion Gap 13, BUN 18, Creatinine 0.62 L, Estim Creat Clear Calc 40.90 L, Est GFR (MDRD) Non-Af 86, BUN/Creatinine Ratio 28.5 H, Glucose 124 H, Calcium 9.0, P hosphorus 2.6 L, Magnesium 1.9, Total Bilirubin 0.24, Direct Bilirubin < 0.08, AST 24, ALT 9, Alkaline Phosphatase 74, Total Protein 5.9, Albumin 3.6, Globulin 2.3, Vitamin D 25-Hydroxy 94.5, TSH 4.090 Radiography Diagnostic Testing: Radiology Impression Brain CT 04/25/25 22:20 IMPRESSION: 1. No acute intracranial abnormality. 2. Large right frontal scalp hematoma/contusion. No calvarial fracture. 3. Moderate-advanced volume loss and chronic small-vessel ischemic changes. Reading Location: [facility] Humerus X-Ray 04/25/25 22:30 IMPRESSION: Acute impacted and superiorly migrated fracture of the right proximal humerus surgical neck. Reading Location: [facility] Humerus X-Ray 04/25/25 22:30 IMPRESSION: Acute comminuted and impacted fracture of the left humeral head and surgical neck. Reading Location: [facility] Physical Exam Const alert and no apparent distress HEENT HEENT Narrative: Bruising on the right side of her face including her forehead and cheeks. Appears to be hematoma at the hairline of her right side of her scalp. Resp normal respiratory effort Extremity Extremity Narrative: Bilateral arms and slings. Neuro Sensorium / Orientation: awake and alert Assessment & Plan Assessment/Plan (1) Bilateral proximal humeral fractures: PLAN: Status post fall Dr. Walter, orthopedics, recommended bilateral slings and no need for surgery at this time. Continue with pain control. 25-hydroxy vitamin D level 94.5. No need for ergocalciferol. (2) Physical debility: PLAN: Status post fall now with bilateral humerus fractures. Patient unable to bear weight in upper extremities at this time. PT OT evaluate and treat. Patient high risk for going home given her fractures without proper support so would anticipate retirement facility. PLAN: Plan VTE prophylaxis with enoxaparin Charges/Coding Visit Charges Inpatient E&M: 46838 Subs Hosp L2
--- NOTE | 2025-04-26 07:28 | PN.HOSP_ITS ---
Reason for Visit Reason for Visit: Diagnoses Other malaise (04/25/25) Unspecified fracture of upper end of right humerus, initial encounter for closed fracture (04/25/25) Unspecified fracture of upper end of left humerus, initial encounter for closed fracture (04/25/25) Subjective Subjective Had a lot of difficulty with therapy due to pain. They are going to try to reattempt later after she is getting some pain medication. Complains of feeling dizzy. Objective Data Objective Data Vital Signs: Vital Signs Temp Pulse Resp BP Pulse Ox O2 Del Method 36.6 C 87 16 107/64 96 Room Air 04/26/25 05:59 04/26/25 05:59 04/26/25 05:59 04/26/25 05:59 04/26/25 05:59 04/26/25 05:59 Oxygen Delivery Method Room Air Weight: 52.3 kg Body Mass Index (BMI) 20.4 Lab / Micro Data 04/25/25 21:50 04/25/25 23:56 Labs: Laboratory Results - last 24 hr 04/25/25 21:50: WBC 7.4, RBC 3.78 L, Hgb 12.1, Hct 35.1 L, MCV 92.9, MCH 32.0, MCHC 34.5, RDW Std Deviation 42.0, RDW Coeff of Noble 12.4, Plt Count 245, MPV 10.4, Immature Gran % (Auto) 0.800, Neut % (Auto) 44.0 L, Lymph % (Auto) 46.6 H, [place] % (Auto) 5.8, Eos % (Auto) 2.3, Baso % (Auto) 0.5, Absolute Neuts (auto) 3.3, Absolute Lymphs (auto) 3.45, Nucleated RBC % 0, PTH Intact 43 04/25/25 23:56: Sodium 140, Potassium 3.5, Chloride 107, Carbon Dioxide 19.4 L, Anion Gap 13, BUN 18, Creatinine 0.62 L, Estim Creat Clear Calc 40.90 L, Est GFR (MDRD) Non-Af 86, BUN/Creatinine Ratio 28.5 H, Glucose 124 H, Calcium 9.0, P hosphorus 2.6 L, Magnesium 1.9, Total Bilirubin 0.24, Direct Bilirubin < 0.08, AST 24, ALT 9, Alkaline Phosphatase 74, Total Protein 5.9, Albumin 3.6, Globulin 2.3, Vitamin D 25-Hydroxy 94.5, TSH 4.090 Radiography Diagnostic Testing: Radiology Impression Brain CT 04/25/25 22:20 IMPRESSION: 1. No acute intracranial abnormality. 2. Large right frontal scalp hematoma/contusion. No calvarial fracture. 3. Moderate-advanced volume loss and chronic small-vessel ischemic changes. Reading Location: [facility] Humerus X-Ray 04/25/25 22:30 IMPRESSION: Acute impacted and superiorly migrated fracture of the right proximal humerus surgical neck. Reading Location: [facility] Humerus X-Ray 04/25/25 22:30 IMPRESSION: Acute comminuted and impacted fracture of the left humeral head and surgical neck. Reading Location: [facility] Physical Exam Const alert and no apparent distress HEENT HEENT Narrative: Bruising on the right side of her face including her forehead and cheeks. Appears to be hematoma at the hairline of her right side of her scalp. Resp normal respiratory effort Extremity Extremity Narrative: Bilateral arms and slings. Neuro Sensorium / Orientation: awake and alert Assessment & Plan Assessment/Plan (1) Bilateral proximal humeral fractures: PLAN: Status post fall Dr. Walter, orthopedics, recommended bilateral slings and no need for surgery at this time. Continue with pain control. 25-hydroxy vitamin D level 94.5. No need for ergocalciferol. (2) Physical debility: PLAN: Status post fall now with bilateral humerus fractures. Patient unable to bear weight in upper extremities at this time. PT OT evaluate and treat. Patient high risk for going home given her fractures without proper support so would anticipate [facility] facility. PLAN: Plan VTE prophylaxis with enoxaparin Charges/Coding Visit Charges Inpatient E&M: 92842 Subs Hosp L2
--- NOTE | 2025-04-26 09:06 | CASEMGMT ---
Social Work- SW received notice that TCU does not have bed availability and is unable to accept referral. Referral requested for alternate choice of [facility]. [facility] notified. Pt third choice is [facility]. SW remains available to follow. TONNY Whipple
[2025-04-26 09:32] VITALS: BP 113/50; PULSE 66; RESP 17; TEMP 36.8; O2SAT 98
[2025-04-26] MEDS: Senna Tablet 1 TABLET PO ×2 (09:35→23:14)
--- NOTE | 2025-04-26 09:41 | CASEMGMT ---
Discharge Planning A list of SNF providers including quality and resource use data and consistent with the patient's preferred geographic region, medical needs, and insurance network was created in [facility] Guide.? This list was provided to the SW. Bekah Gongora Discharge Planning Asst.
--- NOTE | 2025-04-26 12:30 | CONS.ORTHO ---
HPI Consult Data Date of Consult: 04/26/25 HPI Narrative HPI Narrative: ASHLEY KRAUSE, is a 85 F who presents with bilateral arm pain after a fall yesterday at home. She was brought into the ER and was found to have proximal humerus fractures bilaterally. I was consulted for orthopedic management. Patient also had injury to the head which was evaluated with a CT brain in the ER and was cleared. 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 Prior to the injury patient was able to ambulate without any ambulatory aid. She denies any lower extremity pain or injury. She denies any difficulty breathing or chest injuries. She denies any elbow forearm or hand pain. She is in bilateral sling's. [facility] Medical History (Updated 04/26/25 @ 12:[address] Zeeshan Walter MD) Mitral valve prolapse Home Medications ?Medication ?Instructions ?Recorded ?Last Taken ?Type atenolol 25 mg tablet 25 mg PO DAILY 04/25/25 Unknown History Allergy/AdvReac Type Severity Reaction Status Date / Time Sulfa (Sulfonamide Allergy UNKNOWN Verified 04/25/25 21:47 Antibiotics) Social History Smoking Status: Never smoker Vital Signs Vital Signs Vital Signs: 04/25/25 21:46 04/25/25 23:46 04/25/25 23:48 Temperature 98 F 98.1 F Temperature Source Oral Pulse Rate 68 80 77 Respiratory Rate 14 16 18 Respiratory Effort Respiratory Depth Respiratory Pattern Blood Pressure 154/71 H 130/58 H Blood Pressure Mean 98 82 Blood Pressure Source Blood Pressure Position Blood Pressure Location Pulse Ox 100 98 100 Oxygen Delivery Method Room Air Room Air 04/26/25 00:47 04/26/25 01:00 04/26/25 05:59 Temperature 97.9 F 97.9 F Temperature Source Temporal Temporal Pulse Rate 67 87 Respiratory Rate 16 16 Respiratory Effort Normal Non-Labored Respiratory Depth Normal Respiratory Pattern Normal Blood Pressure 140/54 H 107/64 Blood Pressure Mean 82 78 Blood Pressure Source Monitor Monitor Blood Pressure Position Semi-Fowlers Semi-Fowlers Blood Pressure Location Right Leg Right Leg Pulse Ox 100 96 Oxygen Delivery Method Room Air Room Air Room Air 04/26/25 09:32 Temperature 98.3 F Temperature Source Oral Pulse Rate 66 Respiratory Rate 17 Respiratory Effort Respiratory Depth Respiratory Pattern Blood Pressure 113/50 L Blood Pressure Mean 71 Blood Pressure Source Monitor Blood Pressure Position Semi-Fowlers Blood Pressure Location Right Leg Pulse Ox 98 Oxygen Delivery Method Room Air Weight Weight: 115 lb 4.828 oz Body Mass Index (BMI) 20.4 Physical Exam Narrative Examination both upper extremity shows tenderness around the proximal humerus and bilateral sides. Distal neurovascular exam is intact. Axillary nerve function is difficult to assess but no sensory deficit per patient. No bony tenderness in the elbow forearm and hand. Lower extremity shows full range of painless mobility in hips and knees. Lab / Micro Data 04/25/25 21:50 04/25/25 23:56 Labs: Laboratory Results - last 24 hr 04/25/25 21:50: WBC 7.4, RBC 3.78 L, Hgb 12.1, Hct 35.1 L, MCV 92.9, MCH 32.0, MCHC 34.5, RDW Std Deviation 42.0, RDW Coeff of Noble 12.4, Plt Count 245, MPV 10.4, Immature Gran % (Auto) 0.800, Neut % (Auto) 44.0 L, Lymph % (Auto) 46.6 H, [place] % (Auto) 5.8, Eos % (Auto) 2.3, Baso % (Auto) 0.5, Absolute Neuts (auto) 3.3, Absolute Lymphs (auto) 3.45, Nucleated RBC % 0, PTH Intact 43 04/25/25 23:56: Sodium 140, Potassium 3.5, Chloride 107, Carbon Dioxide 19.4 L, Anion Gap 13, BUN 18, Creatinine 0.62 L, Estim Creat Clear Calc 40.90 L, Est GFR (MDRD) Non-Af 86, BUN/Creatinine Ratio 28.5 H, Glucose 124 H, Calcium 9.0, Phosphorus 2.6 L, Magnesium 1.9, Total Bilirubin 0.24, Direct Bilirubin < 0.08, AST 24, ALT 9, Alkaline Phosphatase 74, Total Protein 5.9, Albumin 3.6, Globulin 2.3, Vitamin D 25-Hydroxy 94.5, TSH 4.090 Imaging Radiology Impression Brain CT 04/25/25 22:20 IMPRESSION: 1. No acute intracranial abnormality. 2. Large right frontal scalp hematoma/contusion. No calvarial fracture. 3. Moderate-advanced volume loss and chronic small-vessel ischemic changes. Reading Location: [facility] Humerus X-Ray 04/25/25 22:30 IMPRESSION: Acute impacted and superiorly migrated fracture of the right proximal humerus surgical neck. Reading Location: [facility] Humerus X-Ray 04/25/25 22:30 IMPRESSION: Acute comminuted and impacted fracture of the left humeral head and surgical neck. Reading Location: [facility] Assessment & Plan Assessment/Plan (1) Bilateral proximal humeral fractures: (2) Osteoporosis: QUALIFIERS: Encounter type: initial encounter Osteoporosis type: age-related Presence of current pathological fracture: with current pathological fracture Qualified Code(s): M80.00XA - Age-related osteoporosis with current pathological fracture, unspecified site, initial encounter for fracture PLAN: Plan Reviewed x-rays done in the ER of bilateral humerus. These show right surgical neck humerus fracture with impaction, left multipart proximal humerus fracture with impaction. Significant osteoporosis noticed. Recommend dedicated shoulder x-rays for baseline. Discussed x-ray findings with patient and family. Patient has developed bilateral proximal humerus fractures which are pathological due to osteoporosis. Discussed age-related osteoporosis and need for calcium and vitamin D. These fractures will be best treated nonoperatively with cuff and collar sling immobilization. Discussed the importance of gravity to realign and reduce the impaction. Patient may do elbow wrist and hand range of motion. Okay to start pendulum exercises in about a week on either side. Discussed that she will likely develop stiffness in multiple joints in upper extremities bilaterally. Will continue to follow-up in clinic with repeat x-rays. Will sign off on the inpatient side, but okay to reach out for questions or concerns. All questions answered for the patient. Charges/Coding Visit Charges Inpatient E&M: 91067 Init Hosp L3
--- NOTE | 2025-04-26 13:20 | RAD_ITS ---
PROCEDURE: SHOULDER MIN 2 VIEWS 04/26/2025 REASON FOR EXAM: PROXIMAL HUMERUS FRACTURE TECHNIQUE: SHOULDER MIN 2 VIEWS COMPARISON: Prior study dated April 25, 2025. FINDINGS: Stable examination with evidence of impacted transverse fracture of the surgical neck of the proximal right humerus. RAD/Shoulder min 2 Views IMPRESSION: Stable examination of impacted transverse fracture of the surgical neck of the proximal right humerus. Reading Location: [facility]
--- NOTE | 2025-04-26 13:20 | RAD_ITS ---
PROCEDURE: SHOULDER MIN 2 VIEWS 04/26/2025 REASON FOR EXAM: PROXIMAL HUMERUS FRACTURE TECHNIQUE: SHOULDER MIN 2 VIEWS COMPARISON: Prior study dated April 25, 2025. FINDINGS: Stable examination with evidence of impacted transverse fracture of the surgical neck of the proximal right humerus. RAD/Shoulder min 2 Views IMPRESSION: Stable examination of impacted transverse fracture of the surgical neck of the proximal right humerus. Reading Location: [facility]
--- NOTE | 2025-04-26 13:20 | RAD_ITS ---
PROCEDURE: SHOULDER MIN 2 VIEWS 04/26/2025 REASON FOR EXAM: PROXIMAL HUMERUS FX TECHNIQUE: SHOULDER MIN 2 VIEWS COMPARISON: Prior study dated April 25, 2025. FINDINGS: Stable appearance of the impacted fracture of the surgical neck of the proximal left humerus. Degenerative changes of the left acromioclavicular joint. RAD/Shoulder min 2 Views IMPRESSION: Stable examination. Reading Location: [facility]
--- NOTE | 2025-04-26 13:20 | RAD_ITS ---
PROCEDURE: SHOULDER MIN 2 VIEWS 04/26/2025 REASON FOR EXAM: PROXIMAL HUMERUS FX TECHNIQUE: SHOULDER MIN 2 VIEWS COMPARISON: Prior study dated April 25, 2025. FINDINGS: Stable appearance of the impacted fracture of the surgical neck of the proximal left humerus. Degenerative changes of the left acromioclavicular joint. RAD/Shoulder min 2 Views IMPRESSION: Stable examination. Reading Location: [facility]
[2025-04-26 14:37] VITALS: BP 124/74; PULSE 64; RESP 16; TEMP 36.7; O2SAT 98
--- NOTE | 2025-04-26 15:33 | CASEMGMT ---
SW Assessment: Face to Face with pt for initial transition planning/care coordination assessment. SWintroduced self and role at [facility], pt voices understanding and consents to assessment. Pt is A&O x4 and answers all questions appropriately at this time. Care providers, pharmacy, and demographics verified/updated. Admitting Dx: Fall with bilateral humeral fractures PCP: [facility] Specialists:Lewis (opthomologist) Preferred Pharmacy: [facility] Pharmacy Insurance: [employer] Prescription Benefit: yes LNOK: Moisés, brother; dtrs Bekah and Arron Living Arrangements: Pt lives in ranch, one-story home with 6 stairs to deck. Pt reports stairs (13-15) to basement for laundry. Pt reports that until 2 years ago, she had horses and carried hay alec and water buckets, as well as mucked out stalls. Pt reports this winter she still shoveled snow. Transportation: Pt drives self and denies concerns with transportation. DME: None. Pt reports no grab bars or DME of any kind, as she has been fully independent. HHC/SNF: None Pt states she has family who is formulating a plan to stay with pt following SNF stay for additional assistance. Pt is agreeable to SNF at discharge. TONNY Whipple
--- NOTE | 2025-04-26 15:33 | CASEMGMT ---
SW Assessment: Face to Face with pt for initial transition planning/care coordination assessment. SWintroduced self and role at [facility], pt voices understanding and consents to assessment. Pt is A&O x4 and answers all questions appropriately at this time. Care providers, pharmacy, and demographics verified/updated. Admitting Dx: Fall with bilateral humeral fractures PCP: Britton Specialists:Lewis (opthomologist) Preferred Pharmacy: [facility] Pharmacy Insurance: [employer] Prescription Benefit: yes LNOK: Moisés, brother; dtrs Bekah and Arron Living Arrangements: Pt lives in ranch, one-story home with 6 stairs to deck. Pt reports stairs (13-15) to basement for laundry. Pt reports that until 2 years ago, she had horses and carried hay alec and water buckets, as well as mucked out stalls. Pt reports this winter she still shoveled snow. Transportation: Pt drives self and denies concerns with transportation. DME: None. Pt reports no grab bars or DME of any kind, as she has been fully independent. HHC/SNF: None Pt states she has family who is formulating a plan to stay with pt following SNF stay for additional assistance. Pt is agreeable to SNF at discharge. TONNY Whipple
--- NOTE | 2025-04-26 15:56 | CASEMGMT ---
Addendum entered by Iveth Yin 04/26/25 16:04: DCA notified of referral request for [facility]. TONNY Whipple Original Note: Social Work- A list of SNF providers including quality and resource use data and consistent with the patient?s preferred geographic region, medical needs, and insurance network were [facility]. SW verbally reviewed list with pt, as well as provided printed list. Pt selected [facility] as FOC. Pt would like referral to check for bed availability. Pt to review selection ([facility]) and list with family this evening and tomorrow to verify that [facility] would remain FOC if referral is accepted. SW to follow up to confirm pt selection after discussion with family. SW provided education on SNF referral process. SW remains available to follow. TONNY Whipple
--- NOTE | 2025-04-26 15:56 | CASEMGMT ---
Addendum entered by Iveth Yin 04/26/25 16:04: DCA notified of referral request for [facility]. TONNY Whipple Original Note: Social Work- A list of SNF providers including quality and resource use data and consistent with the patient?s preferred geographic region, medical needs, and insurance network were provided from the [facility] Guide. SW verbally reviewed list with pt, as well as provided printed list. Pt selected [facility] as F[facility]. Pt would like referral to check for bed availability. Pt to review selection ([facility]) and list with family this evening and tomorrow to verify that [facility] would remain FOC if referral is accepted. SW to follow up to confirm pt selection after discussion with family. SW provided education on SNF referral process. SW remains available to follow. TONNY Whipple
[2025-04-26 20:05] VITALS: O2SAT 98
[2025-04-26 23:10] VITALS: BP 123/66; PULSE 79; RESP 16; TEMP 37; O2SAT 99
[2025-04-26] MEDS: 0.9% Saline Lock 10 ML Syringe IV (23:17)
[2025-04-27 03:28] VITALS: BP 143/56; PULSE 67; RESP 18; TEMP 37.1; O2SAT 97
--- NOTE | 2025-04-27 07:30 | PN.HOSP_ITS ---
Reason for Visit Reason for Visit: Diagnoses Age-related osteoporosis with current pathological fracture, unspecified site, initial encounter for fracture (04/25/25) Other malaise (04/25/25) Unspecified fracture of upper end of right humerus, initial encounter for closed fracture (04/25/25) Unspecified fracture of upper end of left humerus, initial encounter for closed fracture (04/25/25) Subjective Subjective Still with pain Objective Data Objective Data Vital Signs: Vital Signs Temp Pulse Resp BP Pulse Ox O2 Del Method 37.1 C 67 18 143/56 H 97 Room Air 04/27/25 03:28 04/27/25 03:28 04/27/25 03:28 04/27/25 03:28 04/27/25 03:28 04/27/25 03:28 Oxygen Delivery Method Room Air Weight: 52.3 kg Body Mass Index (BMI) 20.4 Intake & Output: Intake and Output for Last 24 Hours 04/25/25 04/26/25 04/27/25 23:59 23:59 23:59 Output Total 525 / 525 Balance -525 / -525 Lab / Micro Data 04/25/25 21:50 04/25/25 23:56 Radiography Diagnostic Testing: Radiology Impression Shoulder X-Ray 04/26/25 13:20 IMPRESSION: Stable examination of impacted transverse fracture of the surgical neck of the proximal right humerus. Reading Location: [facility]-1 Shoulder X-Ray 04/26/25 13:20 IMPRESSION: Stable examination. Reading Location: [facility]- Physical Exam Const alert and no apparent distress Constitutional Narrative: Up in bed. Nontoxic. HEENT HEENT Narrative: Left eyelid closed. Ecchymosis hematoma on the right side of her face unchanged from the 11th. Resp normal respiratory effort and no retractions Extremity Extremity Narrative: Bilateral upper extremities and slings Neuro Sensorium / Orientation: awake and alert Psych affect normal Assessment & Plan Assessment/Plan (1) Bilateral proximal humeral fractures: PLAN: Status post fall Dr. Walter, orthopedics, recommended bilateral slings and no need for surgery at this time. Patient may do elbow wrist and hand range of motion. Okay to start pendulum exercises in about a week on either side. Discussed that she will likely develop stiffness in multiple joints in upper extremities bilaterally. Will continue to follow-up in clinic with repeat x-rays. Follow up as oupt. Continue with pain control. Will add Lidoderm patches to each shoulder today. Continue with scheduled acetaminophen. As needed oxycodone. 25-hydroxy vitamin D level 94.5. No need for ergocalciferol. (2) Physical debility: PLAN: Status post fall now with bilateral humerus fractures. Patient unable to bear weight in upper extremities at this time. PT OT evaluate and treat. Patient high risk for going home given her fractures without proper support so would anticipate [facility] facility. PLAN: Plan VTE prophylaxis with enoxaparin Charges/Coding Visit Charges Inpatient E&M: 02316 Subs Hosp L2
--- NOTE | 2025-04-27 07:30 | PN.HOSP_ITS ---
Reason for Visit Reason for Visit: Diagnoses Age-related osteoporosis with current pathological fracture, unspecified site, initial encounter for fracture (04/25/25) Other malaise (04/25/25) Unspecified fracture of upper end of right humerus, initial encounter for closed fracture (04/25/25) Unspecified fracture of upper end of left humerus, initial encounter for closed fracture (04/25/25) Subjective Subjective Still with pain Objective Data Objective Data Vital Signs: Vital Signs Temp Pulse Resp BP Pulse Ox O2 Del Method 37.1 C 67 18 143/56 H 97 Room Air 04/27/25 03:28 04/27/25 03:28 04/27/25 03:28 04/27/25 03:28 04/27/25 03:28 04/27/25 03:28 Oxygen Delivery Method Room Air Weight: 52.3 kg Body Mass Index (BMI) 20.4 Intake & Output: Intake and Output for Last 24 Hours 04/25/25 04/26/25 04/27/25 23:59 23:59 23:59 Output Total 525 / 525 Balance -525 / -525 Lab / Micro Data 04/25/25 21:50 04/25/25 23:56 Radiography Diagnostic Testing: Radiology Impression Shoulder X-Ray 04/26/25 13:20 IMPRESSION: Stable examination of impacted transverse fracture of the surgical neck of the proximal right humerus. Reading Location: [facility]-1 Shoulder X-Ray 04/26/25 13:20 IMPRESSION: Stable examination. Reading Location: [facility]- Physical Exam Const alert and no apparent distress Constitutional Narrative: Up in bed. Nontoxic. HEENT HEENT Narrative: Left eyelid closed. Ecchymosis hematoma on the right side of her face unchanged from the 11th. Resp normal respiratory effort and no retractions Extremity Extremity Narrative: Bilateral upper extremities and slings Neuro Sensorium / Orientation: awake and alert Psych affect normal Assessment & Plan Assessment/Plan (1) Bilateral proximal humeral fractures: PLAN: Status post fall Dr. Walter, orthopedics, recommended bilateral slings and no need for surgery at this time. Patient may do elbow wrist and hand range of motion. Okay to start pendulum exercises in about a week on either side. Discussed that she will likely develop stiffness in multiple joints in upper extremities bilaterally. Will continue to follow-up in clinic with repeat x-rays. Follow up as oupt. Continue with pain control. Will add Lidoderm patches to each shoulder today. Continue with scheduled acetaminophen. As needed oxycodone. 25-hydroxy vitamin D level 94.5. No need for ergocalciferol. (2) Physical debility: PLAN: Status post fall now with bilateral humerus fractures. Patient unable to bear weight in upper extremities at this time. PT OT evaluate and treat. Patient high risk for going home given her fractures without proper support so would anticipate [facility] facility. PLAN: Plan VTE prophylaxis with enoxaparin Charges/Coding Visit Charges Inpatient E&M: 73414 Subs Hosp L2
[2025-04-27 07:57] VITALS: O2SAT 96
[2025-04-27] MEDS: Senna Tablet 1 TABLET PO ×2 (09:21→22:07)
[2025-04-27 09:28] VITALS: BP 120/59; PULSE 57; RESP 16; TEMP 36.7; O2SAT 98
[2025-04-27 11:36] VITALS: BP 152/77; PULSE 78; RESP 16; TEMP 36.5; O2SAT 98
[2025-04-27] MEDS: Lidocaine 5% Patch 2 PATCH TOPICAL (14:24)
--- NOTE | 2025-04-27 15:37 | CASEMGMT ---
Social Work SW met with pt to review SNF choices. Pt states she has spoke with her daughter and continues to prefer to go to [facility] at discharge. Referral sent to [facility]. TONNY Lowery
--- NOTE | 2025-04-27 15:37 | CASEMGMT ---
Social Work SW met with pt to review SNF choices. Pt states she has spoke with her daughter and continues to prefer to go to [facility] at discharge. Referral sent to [facility]. TONNY Lowery
[2025-04-27 15:41] VITALS: BP 117/60; PULSE 65; RESP 16; TEMP 37.1; O2SAT 97
[2025-04-27 21:56] VITALS: BP 125/69; PULSE 72; RESP 18; TEMP 36.9; O2SAT 98
[2025-04-28 03:42] VITALS: BP 122/72; PULSE 68; RESP 16; TEMP 36.7; O2SAT 98
--- NOTE | 2025-04-28 07:37 | PCM.PN.HOSP ---
Reason for Visit Reason for Visit: Diagnoses Age-related osteoporosis with current pathological fracture, unspecified site, initial encounter for fracture (04/25/25) Other malaise (04/25/25) Unspecified fracture of upper end of right humerus, initial encounter for closed fracture (04/25/25) Unspecified fracture of upper end of left humerus, initial encounter for closed fracture (04/25/25) Subjective Subjective Notes that her hands have felt weaker. Stated that before the injury, patient was able to use her hands easily without difficulty. Objective Data Objective Data Vital Signs: Vital Signs Temp Pulse Resp BP Pulse Ox O2 Del Method 36.7 C 68 16 122/72 H 98 Room Air 04/28/25 03:42 04/28/25 03:42 04/28/25 03:42 04/28/25 03:42 04/28/25 03:42 04/28/25 03:42 Oxygen Delivery Method Room Air Weight: 52.3 kg Body Mass Index (BMI) 20.4 Intake & Output: Intake and Output for Last 24 Hours 04/26/25 04/27/25 04/28/25 23:59 23:59 23:59 Intake Total 600 / 900 300 / 300 Output Total 1225 / 1475 700 / 700 Balance -625 / -575 -400 / -400 Lab / Micro Data 04/25/25 21:50 04/25/25 23:56 Physical Exam Const alert and no apparent distress HEENT HEENT Narrative: Ecchymosis hematoma of the right upper scalp going down forehead. Resp normal respiratory effort Extremity Extremity Narrative: Bilateral arms and slings. Neuro Neuro Narrative: Unable to incompletely close her left hand. 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 Muscle strength is 5-5 in lower extremities bilaterally. Sensation grossly tact. Assessment & Plan Assessment/Plan (1) Bilateral proximal humeral fractures: PLAN: Status post fall Dr. Walter, orthopedics, recommended bilateral slings and no need for surgery at this time. Patient may do elbow wrist and hand range of motion. Okay to start pendulum exercises in about a week on either side. Discussed that she will likely develop stiffness in multiple joints in upper extremities bilaterally. Will continue to follow-up in clinic with repeat x-rays. Follow up as oupt. Continue with pain control. Will add Lidoderm patches to each shoulder today. Continue with scheduled acetaminophen. As needed oxycodone. 25-hydroxy vitamin D level 94.5. No need for ergocalciferol. (2) Physical debility: PLAN: Status post fall now with bilateral humerus fractures. Patient unable to bear weight in upper extremities at this time. PT OT evaluate and treat. Patient high risk for going home given her fractures without proper support so would anticipate correction facility. (3) Upper extremity weakness: PLAN: Post injury. I did do a CAT scan as 1 was not done in the emergency room of her neck. No evidence of any fractures. No clear etiology at this time based on the CAT scan finding. She really has not much in way of arthritis either. Will check an MRI of her neck to see if there is any injury. I doubt anything like transverse myelitis the patient does have strength in her lower extremities. PLAN: Plan VTE prophylaxis with enoxaparin Charges/Coding Visit Charges Inpatient E&M: 53503 Subs Hosp L2
[2025-04-28 07:52] VITALS: O2SAT 95
--- NOTE | 2025-04-28 09:10 | CT_ITS ---
PROCEDURE: SPINE CERVICAL WITHOUT CONTRAS 04/28/2025 REASON FOR EXAM: HEAD INJURY TECHNIQUE: Cervical spine CT without contrast. Coronal and Sagittal reconstruction series were provided. One or more dose reduction techniques were used (e.g., Automated exposure control, adjustment of the mA and/or kV according to patient size, use of iterative reconstruction technique. RADIATION DOSE SUMMARY: DLP: 243 mGycm COMPARISON: None. FINDINGS: Alignment: No traumatic listhesis. Vertebrae: Diffuse bone demineralization. No acute fracture. Mild multilevel vertebral body height loss. Multilevel degenerative disc disease with mild central canal stenosis at C5-6 and mild right neural foraminal stenosis at C4-5. Soft Tissues: No prevertebral hematoma. CT/Spine Cervical without Contras IMPRESSION: NO ACUTE CERVICAL FRACTURE. DEGENERATIVE CHANGES. Reading Location: [id number]
--- NOTE | 2025-04-28 09:10 | CT_ITS ---
PROCEDURE: SPINE CERVICAL WITHOUT CONTRAS 04/28/2025 REASON FOR EXAM: HEAD INJURY TECHNIQUE: Cervical spine CT without contrast. Coronal and Sagittal reconstruction series were provided. One or more dose reduction techniques were used (e.g., Automated exposure control, adjustment of the mA and/or kV according to patient size, use of iterative reconstruction technique. RADIATION DOSE SUMMARY: DLP: 243 mGycm COMPARISON: None. FINDINGS: Alignment: No traumatic listhesis. Vertebrae: Diffuse bone demineralization. No acute fracture. Mild multilevel vertebral body height loss. Multilevel degenerative disc disease with mild central canal stenosis at C5-6 and mild right neural foraminal stenosis at C4-5. Soft Tissues: No prevertebral hematoma. CT/Spine Cervical without Contras IMPRESSION: NO ACUTE CERVICAL FRACTURE. DEGENERATIVE CHANGES. Reading Location: [id number]
[2025-04-28 09:19] VITALS: BP 116/52; PULSE 65; RESP 18; TEMP 37.2; O2SAT 97
[2025-04-28] MEDS: Senna Tablet 1 TABLET PO ×2 (10:02→23:01)
[2025-04-28] MEDS: Lidocaine 5% Patch 2 PATCH TOPICAL (10:02)
[2025-04-28 14:00] VITALS: BP 135/68; PULSE 73; RESP 18; TEMP 36.8; O2SAT 98
[2025-04-28 22:58] VITALS: BP 140/62; PULSE 76; RESP 16; TEMP 37.1; O2SAT 99
[2025-04-29 04:45] VITALS: BP 141/70; PULSE 60; RESP 16; TEMP 36.8; O2SAT 99
[2025-04-29] MEDS: 0.9% Saline Lock 10 ML Syringe IV (06:44)
[2025-04-29 08:09] VITALS: O2SAT 95
[2025-04-29 09:00] VITALS: BP 147/67; PULSE 66; RESP 16; TEMP 36.6; O2SAT 98
[2025-04-29] MEDS: Senna Tablet 1 TABLET PO ×2 (10:11→20:12)
[2025-04-29] MEDS: Lidocaine 5% Patch 2 PATCH TOPICAL (10:12)
--- NOTE | 2025-04-29 10:35 | CASEMGMT ---
Discharge Planning [facility] has accepted and will submit for precert. SW updated. Bekah Gongora DC Planning Asst.
--- NOTE | 2025-04-29 10:35 | CASEMGMT ---
Discharge Planning [facility] has accepted and will submit for precert. SW updated. Bekah Gongora DC Planning Asst.
--- NOTE | 2025-04-29 10:39 | PCM.PN.HOSP ---
Reason for Visit Chief Complaint: Fall with bilateral shoulder pain Subjective Subjective Feeling well. Hands able to open and close w/o difficulty. Objective Data Objective Data Vital Signs: Vital Signs Temp Pulse Resp BP Pulse Ox O2 Del Method 36.8 C 60 16 141/70 H 95 Room Air 04/29/25 04:45 04/29/25 04:45 04/29/25 04:45 04/29/25 04:45 04/29/25 08:09 04/29/25 08:45 Oxygen Delivery Method Room Air Weight: 52.3 kg Body Mass Index (BMI) 20.4 Intake & Output: Intake and Output for Last 24 Hours 04/27/25 04/28/25 04/29/25 23:59 23:59 23:59 Intake Total 600 / 900 1400 / 1400 Output Total 1225 / 1475 1900 / 1900 300 / 300 Balance -625 / -575 -500 / -500 -300 / -300 Lab / Micro Data 04/25/25 21:50 04/25/25 23:56 Physical Exam Const alert and no apparent distress HEENT HEENT Narrative: brusing on face drift downwards on face. Resp normal respiratory effort and no retractions Cardio regular rate and regular rhythm Extremity Extremity Narrative: arms in bilateral slings. Neuro Sensorium / Orientation: awake and alert Psych affect normal Assessment & Plan Assessment/Plan (1) Bilateral proximal humeral fractures: PLAN: Status post fall Dr. Walter, orthopedics, recommended bilateral slings and no need for surgery at this time. Patient may do elbow wrist and hand range of motion. Okay to start pendulum exercises in about a week on either side. Discussed that she will likely develop stiffness in multiple joints in upper extremities bilaterally. Will continue to follow-up in clinic with repeat x-rays. Follow up as oupt. Continue with pain control. Will add Lidoderm patches to each shoulder today. Continue with scheduled acetaminophen. As needed oxycodone. 25-hydroxy vitamin D level 94.5. No need for ergocalciferol. (2) Physical debility: PLAN: Status post fall now with bilateral humerus fractures. Patient unable to bear weight in upper extremities at this time. PT OT evaluate and treat. Patient high risk for going home given her fractures without proper support so would anticipate correction facility. (3) Upper extremity weakness: PLAN: resolved. I did do a CAT scan as 1 was not done in the emergency room of her neck. No evidence of any fractures. Symptoms are resolved. 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 She does not want the MRI due to cost, which I think is reasonable given resolution of her symptoms. Though, in retrospect, I would suspect peripheral neuropathy (particularly ulnar given the slings). PLAN: Plan Facial hematoma and ecchymosis: status post fall. No need for drainage of hematoma. VTE prophylaxis with enoxaparin Disposition: to SNF pending insurance authorization. Charges/Coding Visit Charges Inpatient E&M: 84345 Subs Hosp L2
--- NOTE | 2025-04-29 10:39 | PCM.PN.HOSP ---
Reason for Visit Chief Complaint: Fall with bilateral shoulder pain Subjective Subjective Feeling well. Hands able to open and close w/o difficulty. Objective Data Objective Data Vital Signs: Vital Signs Temp Pulse Resp BP Pulse Ox O2 Del Method 36.8 C 60 16 141/70 H 95 Room Air 04/29/25 04:45 04/29/25 04:45 04/29/25 04:45 04/29/25 04:45 04/29/25 08:09 04/29/25 08:45 Oxygen Delivery Method Room Air Weight: 52.3 kg Body Mass Index (BMI) 20.4 Intake & Output: Intake and Output for Last 24 Hours 04/27/25 04/28/25 04/29/25 23:59 23:59 23:59 Intake Total 600 / 900 1400 / 1400 Output Total 1225 / 1475 1900 / 1900 300 / 300 Balance -625 / -575 -500 / -500 -300 / -300 Lab / Micro Data 04/25/25 21:50 04/25/25 23:56 Physical Exam Const alert and no apparent distress HEENT HEENT Narrative: brusing on face drift downwards on face. Resp normal respiratory effort and no retractions Cardio regular rate and regular rhythm Extremity Extremity Narrative: arms in bilateral slings. Neuro Sensorium / Orientation: awake and alert Psych affect normal Assessment & Plan Assessment/Plan (1) Bilateral proximal humeral fractures: PLAN: Status post fall Dr. Walter, orthopedics, recommended bilateral slings and no need for surgery at this time. Patient may do elbow wrist and hand range of motion. Okay to start pendulum exercises in about a week on either side. Discussed that she will likely develop stiffness in multiple joints in upper extremities bilaterally. Will continue to follow-up in clinic with repeat x-rays. Follow up as oupt. Continue with pain control. Will add Lidoderm patches to each shoulder today. Continue with scheduled acetaminophen. As needed oxycodone. 25-hydroxy vitamin D level 94.5. No need for ergocalciferol. (2) Physical debility: PLAN: Status post fall now with bilateral humerus fractures. Patient unable to bear weight in upper extremities at this time. PT OT evaluate and treat. Patient high risk for going home given her fractures without proper support so would anticipate senior care facility. (3) Upper extremity weakness: PLAN: resolved. I did do a CAT scan as 1 was not done in the emergency room of her neck. No evidence of any fractures. Symptoms are resolved. 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 She does not want the MRI due to cost, which I think is reasonable given resolution of her symptoms. Though, in retrospect, I would suspect peripheral neuropathy (particularly ulnar given the slings). PLAN: Plan Facial hematoma and ecchymosis: status post fall. No need for drainage of hematoma. VTE prophylaxis with enoxaparin Disposition: to SNF pending insurance authorization. Charges/Coding Visit Charges Inpatient E&M: 16745 Subs Hosp L2
--- NOTE | 2025-04-29 14:57 | TREXTCAR_ITS ---
Diet Diet Order/Speech Therapy: INPATIENT Hospital Diet / Speech Therapy Order(s) 04/26/25 00:29 Diet: Regular - General Food consistency:: Mechanical (Minced/Moist) Liquid Consistency:: Regular/Thin DC O2, CPAP, BIPAP needs Home O2 Discharge instructions: No Therapies Weight Bearing: Non weight bearing Extremity Affected:: Left Upper and Right Upper Physical Therapy: Eval and Treat Occupational Therapy: Eval and Treat Problem/Diagnosis (1) Bilateral proximal humeral fractures: Status: Acute Code(s): S42.201A - Unspecified fracture of upper end of right humerus, initial encounter for closed fracture; S42.202A - Unspecified fracture of upper end of left humerus, initial encounter for closed fracture Plan: Status post fall Dr. Walter, orthopedics, recommended bilateral slings and no need for surgery at this time. Patient may do elbow wrist and hand range of motion. Okay to start pendulum exercises in about a week on either side. Discussed that she will lik yennifer develop stiffness in multiple joints in upper extremities bilaterally. Will continue to follow-up in clinic with repeat x-rays. Follow up as oupt. Continue with pain control. Will add Lidoderm patches to each shoulder today. Continue with scheduled acetaminophen. As needed oxycodone. 25-hydroxy vitamin D level 94.5. No need for ergocalciferol. (2) Physical debility: Status: Acute Code(s): R53.81 - Other malaise Plan: Status post fall now with bilateral humerus fractures. Patient unable to bear weight in upper extremities at this time. PT OT evaluate and treat. Patient high risk for going home given her fractures without proper support so would anticipate senior living facility. (3) Upper extremity weakness: Status: Acute Code(s): R29.898 - Other symptoms and signs involving the musculoskeletal system Plan: resolved. I did do a CAT scan as 1 was not done in the emergency room of her neck. No evidence of any fractures. Symptoms are resolved. 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 She does not want the MRI due to cost, which I think is reasonable given resolution of her symptoms. Though, in retrospect, I would suspect peripheral neuropathy (particularly ulnar given the slings). Plan Facial hematoma and ecchymosis: status post fall. No need for drainage of hematoma. VTE prophylaxis with enoxaparin Disposition: to SNF pending insurance authorization. Allergies/Procedures Done in Hospital Allergies Sulfa (Sulfonamide Antibiotics) Allergy (Verified 04/25/25 21:47) UNKNOWN Procedures: None Type of Care/Length of Stay Estimated LOS: Convalescent Care Less Than 30 days Type of Care Needed: Skilled Rehab Potential: Fair Prognosis: Good Additional Orders/Day of Discharge Day of Discharge: 04/29/25 Discharge Plan Admission Admit Date/Time: 04/25/25 23:40 Primary Reason for Your Visit: bilateral humerus fractures. Attending Provider: Joao Correa Primary Care Provider: Alejandro Jarquin [employer] Providers: Luis Johnson Discharge Orders/Prescriptions Prescriptions: New acetaminophen 500 mg Tablet 1,000 mg PO Q8 Qty: 0 0RF melatonin 3 mg Tablet 3 mg PO QHS PRN PRN (Reason: Insomnia) Qty: 0 0RF lidocaine 5 % Adhesive Patch,Medicated 2 patch topical DAILY Qty: 0 0RF Protocol: *Topical Application Instructions APPLICATION INSTRUCTIONS: 1 to each shoulder enoxaparin 40 mg/0.4 mL Syringe 40 mg subcut DAILY Qty: 0 0RF oxycodone 5 mg Tablet 5 mg PO Q4H PRN PRN (Reason: Pain Score 4-10) 3 Days Qty: 12 0RF sennosides [senna] 8.6 mg Tablet 8.6 mg PO BID Qty: 30 0RF Continued atenolol 25 mg tablet 25 mg PO DAILY Referrals / Follow Up: Alejandro Jarquin Chi, MD [Primary Care Provider] - Within 2 Weeks Zeeshan Walter MD [Med Staff - Active Staff] - Within 2 Weeks Disposition Disposition (needs filled in before D/C Order can be placed): Senior Care Facility
[2025-04-29 15:00] VITALS: BP 134/79; PULSE 66; RESP 16; TEMP 36.5; O2SAT 100
[2025-04-29 21:00] VITALS: BP 148/78; PULSE 78; RESP 16; TEMP 36.4; O2SAT 99
[2025-04-29 23:00] VITALS: PULSE 78; O2SAT 99
[2025-04-30 03:00] VITALS: BP 126/59; PULSE 54; RESP 16; TEMP 36.9; O2SAT 97
--- NOTE | 2025-04-30 07:54 | PCM.PN.HOSP ---
Reason for Visit Chief Complaint: Fall with bilateral shoulder pain Subjective Subjective Pain stable. Objective Data Objective Data Vital Signs: Vital Signs Temp Pulse Resp BP Pulse Ox O2 Del Method 36.9 C 54 L 16 126/59 H 97 Room Air 04/30/25 03:00 04/30/25 03:00 04/30/25 03:00 04/30/25 03:00 04/30/25 03:00 04/30/25 07:40 Oxygen Delivery Method Room Air Weight: 52.3 kg Body Mass Index (BMI) 20.4 Intake & Output: Intake and Output for Last 24 Hours 04/28/25 04/29/25 04/30/25 23:59 23:59 23:59 Intake Total 1400 / 1400 Output Total 1900 / 1900 800 / 800 400 / 400 Balance -500 / -500 -800 / -800 -400 / -400 Lab / Micro Data 04/25/25 21:50 04/25/25 23:56 Physical Exam Const alert and no apparent distress HEENT head/scalp atraumatic and moist oral mucous membranes Resp normal respiratory effort and no retractions Cardio regular rate and regular rhythm Neuro Sensorium / Orientation: awake and alert Assessment & Plan Assessment/Plan (1) Bilateral proximal humeral fractures: PLAN: Status post fall Dr. Walter, orthopedics, recommended bilateral slings and no need for surgery at this time. Patient may do elbow wrist and hand range of motion. Okay to start pendulum exercises in about a week on either side. Discussed that she will likely develop stiffness in multiple joints in upper extremities bilaterally. Will continue to follow-up in clinic with repeat x-rays. Follow up as oupt. Continue with pain control. Will add Lidoderm patches to each shoulder today. Continue with scheduled acetaminophen. As needed oxycodone. 25-hydroxy vitamin D level 94.5. No need for ergocalciferol. (2) Physical debility: PLAN: Status post fall now with bilateral humerus fractures. Patient unable to bear weight in upper extremities at this time. PT OT evaluate and treat. Patient high risk for going home given her fractures without proper support so would anticipate [facility] facility. (3) Upper extremity weakness: PLAN: resolved. I did do a CAT scan as 1 was not done in the emergency room of her neck. No evidence of any fractures. Symptoms are resolved. 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 She does not want the MRI due to cost, which I think is reasonable given resolution of her symptoms. Though, in retrospect, I would suspect peripheral neuropathy (particularly ulnar given the slings). PLAN: Plan Facial hematoma and ecchymosis: status post fall. No need for drainage of hematoma. VTE prophylaxis with enoxaparin Disposition: to SNF pending insurance authorization. Avoidable day. Patient stable for discharge since the . Charges/Coding Visit Charges Inpatient E&M: 41647 Subs Hosp L1
--- NOTE | 2025-04-30 07:54 | PCM.PN.HOSP ---
Reason for Visit Chief Complaint: Fall with bilateral shoulder pain Subjective Subjective Pain stable. Objective Data Objective Data Vital Signs: Vital Signs Temp Pulse Resp BP Pulse Ox O2 Del Method 36.9 C 54 L 16 126/59 H 97 Room Air 04/30/25 03:00 04/30/25 03:00 04/30/25 03:00 04/30/25 03:00 04/30/25 03:00 04/30/25 07:40 Oxygen Delivery Method Room Air Weight: 52.3 kg Body Mass Index (BMI) 20.4 Intake & Output: Intake and Output for Last 24 Hours 04/28/25 04/29/25 04/30/25 23:59 23:59 23:59 Intake Total 1400 / 1400 Output Total 1900 / 1900 800 / 800 400 / 400 Balance -500 / -500 -800 / -800 -400 / -400 Lab / Micro Data 04/25/25 21:50 04/25/25 23:56 Physical Exam Const alert and no apparent distress HEENT head/scalp atraumatic and moist oral mucous membranes Resp normal respiratory effort and no retractions Cardio regular rate and regular rhythm Neuro Sensorium / Orientation: awake and alert Assessment & Plan Assessment/Plan (1) Bilateral proximal humeral fractures: PLAN: Status post fall Dr. Walter, orthopedics, recommended bilateral slings and no need for surgery at this time. Patient may do elbow wrist and hand range of motion. Okay to start pendulum exercises in about a week on either side. Discussed that she will likely develop stiffness in multiple joints in upper extremities bilaterally. Will continue to follow-up in clinic with repeat x-rays. Follow up as oupt. Continue with pain control. Will add Lidoderm patches to each shoulder today. Continue with scheduled acetaminophen. As needed oxycodone. 25-hydroxy vitamin D level 94.5. No need for ergocalciferol. (2) Physical debility: PLAN: Status post fall now with bilateral humerus fractures. Patient unable to bear weight in upper extremities at this time. PT OT evaluate and treat. Patient high risk for going home given her fractures without proper support so would anticipate care home facility. (3) Upper extremity weakness: PLAN: resolved. I did do a CAT scan as 1 was not done in the emergency room of her neck. No evidence of any fractures. Symptoms are resolved. 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 She does not want the MRI due to cost, which I think is reasonable given resolution of her symptoms. Though, in retrospect, I would suspect peripheral neuropathy (particularly ulnar given the slings). PLAN: Plan Facial hematoma and ecchymosis: status post fall. No need for drainage of hematoma. VTE prophylaxis with enoxaparin Disposition: to SNF pending insurance authorization. Avoidable day. Patient stable for discharge since the . Charges/Coding Visit Charges Inpatient E&M: 27719 Subs Hosp L1
[2025-04-30 08:03] VITALS: BP 129/60; PULSE 62; RESP 14; TEMP 36.2; O2SAT 98
[2025-04-30] MEDS: Senna Tablet 1 TABLET PO (08:33)
[2025-04-30] MEDS: Lidocaine 5% Patch 2 PATCH TOPICAL (08:33)
[2025-04-30 14:38] VITALS: BP 110/69; PULSE 64; RESP 18; TEMP 36.5; O2SAT 99
--- NOTE | 2025-04-30 15:09 | CASEMGMT ---
Social Work- Pt updated that precert remains pending. SW remains available to follow. Plan: [facility]; pend precert TONNY Whipple
--- NOTE | 2025-04-30 15:09 | CASEMGMT ---
Social Work- Pt updated that precert remains pending. SW remains available to follow. Plan: [facility]; pend precert TONNY Whipple
[2025-04-30 23:04] VITALS: BP 135/61; PULSE 77; RESP 16; TEMP 37; O2SAT 99
[2025-05-01 04:30] VITALS: BP 125/52; PULSE 68; RESP 16; TEMP 37.1; O2SAT 98
--- NOTE | 2025-05-01 08:09 | PCM.PN.HOSP ---
Reason for Visit Chief Complaint: Fall with bilateral shoulder pain Subjective Subjective Claiming of some weakness in her hands but does improve when she moves her hands repetitively Objective Data Objective Data Vital Signs: Vital Signs Temp Pulse Resp BP Pulse Ox O2 Del Method 37.1 C 68 16 125/52 H 98 Room Air 05/01/25 04:30 05/01/25 04:30 05/01/25 04:30 05/01/25 04:30 05/01/25 04:30 05/01/25 04:30 Oxygen Delivery Method Room Air Weight: 52.3 kg Body Mass Index (BMI) 20.4 Intake & Output: Intake and Output for Last 24 Hours 04/29/25 04/30/25 05/01/25 23:59 23:59 23:59 Output Total 800 / 800 400 / 400 450 / 450 Balance -800 / -800 -400 / -400 -450 / -450 Lab / Micro Data 04/25/25 21:50 04/25/25 23:56 Physical Exam Const alert and no apparent distress HEENT head/scalp atraumatic and moist oral mucous membranes Resp normal respiratory effort and no retractions Neuro Sensorium / Orientation: awake and alert Assessment & Plan Assessment/Plan (1) Bilateral proximal humeral fractures: PLAN: Status post fall Dr. Walter, orthopedics, recommended bilateral slings and no need for surgery at this time. Patient may do elbow wrist and hand range of motion. Okay to start pendulum exercises in about a week on either side. Discussed that she will likely develop stiffness in multiple joints in upper extremities bilaterally. Will continue to follow-up in clinic with repeat x-rays. Follow up as oupt. Continue with pain control. Will add Lidoderm patches to each shoulder today. Continue with scheduled acetaminophen. As needed oxycodone. 25-hydroxy vitamin D level 94.5. No need for ergocalciferol. (2) Physical debility: PLAN: Status post fall now with bilateral humerus fractures. Patient unable to bear weight in upper extremities at this time. PT OT evaluate and treat. Patient high risk for going home given her fractures without proper support so would anticipate [facility] facility. (3) Upper extremity weakness: PLAN: resolved. I did do a CAT scan as 1 was not done in the emergency room of her neck. No evidence of any fractures. Symptoms are resolved. 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 She does not want the MRI due to cost, which I think is reasonable given resolution of her symptoms. Though, in retrospect, I would suspect peripheral neuropathy (particularly ulnar given the slings). Intermittent but does get better as she repeatedly opens and closes her hands. Does not sound like she is having any kind of ulnar neuropathy at this time. Though she does start experiencing paresthesias or weakness in her 4th and 5th fingers, perhaps some padding would be helpful in her slings to help minimize neuropathy. PLAN: Plan Facial hematoma and ecchymosis: status post fall. No need for drainage of hematoma. VTE prophylaxis with enoxaparin Disposition: to SNF pending insurance authorization. Avoidable day. Patient stable for discharge since the .
[2025-05-01] MEDS: Lidocaine 5% Patch 2 PATCH TOPICAL (08:21)
[2025-05-01 09:11] VITALS: BP 127/71; PULSE 77; RESP 16; TEMP 36.8; O2SAT 95
--- NOTE | 2025-05-01 09:50 | CASEMGMT ---
Discharge Planning [facility] has obtained auth to admit. MATTEO CM updated. Bekah Gongora DC Planning Asst.
--- NOTE | 2025-05-01 09:50 | CASEMGMT ---
Discharge Planning [facility] has obtained auth to admit. MATTEO CM updated. Bekah Gongora DC Planning Asst.
--- NOTE | 2025-05-01 10:07 | PCM.DC.SUM ---
Providers Date of Admission: 04/25/25 Primary Care Physician: Dr. Alejandro Jarquin MD Reason For Visit: FALL WITH BILATERAL HUMERAL FRACTURES & Diagnosis Discharge Diagnosis (1) Bilateral proximal humeral fractures: Status: Acute Code(s): S42.201A - Unspecified fracture of upper end of right humerus, initial encounter for closed fracture; S42.202A - Unspecified fracture of upper end of left humerus, initial encounter for closed fracture Plan: Status post fall Dr. Walter, orthopedics, recommended bilateral slings and no need for surgery at this time. Patient may do elbow wrist and hand range of motion. Okay to start pendulum exercises in about a week on either side. Discussed that she will likely develop stiffness in multiple joints in upper extremities bilaterally. Will continue to follow-up in clinic with repeat x-rays. Follow up as oupt. Continue with pain control. Will add Lidoderm patches to each shoulder today. Continue with scheduled acetaminophen. As needed oxycodone. 25-hydroxy vitamin D level 94.5. No need for ergocalciferol. (2) Physical debility: Status: Acute Code(s): R53.81 - Other malaise Plan: Status post fall now with bilateral humerus fractures. Patient unable to bear weight in upper extremities at this time. PT OT evaluate and treat. Patient high risk for going home given her fractures without proper support so would anticipate residential facility. (3) Upper extremity weakness: Status: Acute Code(s): R29.898 - Other symptoms and signs involving the musculoskeletal system Plan: resolved. I did do a CAT scan as 1 was not done in the emergency room of her neck. No evidence of any fractures. Symptoms are resolved. 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 She does not want the MRI due to cost, which I think is reasonable given resolution of her symptoms. Though, in retrospect, I would suspect peripheral neuropathy (particularly ulnar given the slings). Intermittent but does get better as she repeatedly opens and closes her hands. Does not sound like she is having any kind of ulnar neuropathy at this time. Though she does start experiencing paresthesias or weakness in her 4th and 5th fingers, perhaps some padding would be helpful in her slings to help minimize neuropathy. Plan Facial hematoma and ecchymosis: status post fall. No need for drainage of hematoma. VTE prophylaxis with enoxaparin Disposition: to [facility] pending insurance authorization. Avoidable day. Patient stable for discharge since the . Medications at Discharge Home Medications atenolol 25 mg tablet 25 mg PO DAILY 04/25/25 acetaminophen 500 mg tablet 1,000 mg (2 x 500 mg) PO Q8 #0 tabs 04/29/25 enoxaparin 40 mg/0.4 mL subcutaneous syringe 40 mg (0.4 mL) subcut DAILY #0 mL 04/29/25 lidocaine 5 % topical patch 2 patch topical DAILY #0 ea 04/29/25 melatonin 3 mg tablet 3 mg PO QHS PRN PRN Insomnia #0 tabs 04/29/25 oxycodone 5 mg tablet 5 mg PO Q4H PRN PRN Pain Score 4-10 3 days #12 tabs 04/29/25 sennosides 8.6 mg tablet (senna) 8.6 mg PO BID #30 tabs 04/29/25 Weight / BMI Weight Weight: 52.3 kg Body Mass Index (BMI) 20.4 ABG / Lab / Microbiology Data 04/25/25 21:50 04/25/25 23:56 D/C Instructions DC O2, CPAP, BIPAP Needs Home O2 Discharge instructions: No Meaningful Use Info Meaningful Use Meaningful Use Diagnoses (Choose all that apply): None applicable Discharge Plan Admission Admit Date/Time: 04/25/25 23:40 Primary Reason for Your Visit: bilateral humerus fractures. Attending Provider: Joao Correa Primary Care Provider: Alejandro Jarquin [employer] Providers: Luis Johnson Discharge Orders/Prescriptions Prescriptions: New acetaminophen 500 mg Tablet 1,000 mg PO Q8 Qty: 0 0RF melatonin 3 mg Tablet 3 mg PO QHS PRN PRN (Reason: Insomnia) Qty: 0 0RF lidocaine 5 % Adhesive Patch,Medicated 2 patch topical DAILY Qty: 0 0RF Protocol: *Topical Application Instructions APPLICATION INSTRUCTIONS: 1 to each shoulder enoxaparin 40 mg/0.4 mL Syringe 40 mg subcut DAILY Qty: 0 0RF oxycodone 5 mg Tablet 5 mg PO Q4H PRN PRN (Reason: Pain Score 4-10) 3 Days Qty: 12 0RF sennosides [senna] 8.6 mg Tablet 8.6 mg PO BID Qty: 30 0RF Continued atenolol 25 mg tablet 25 mg PO DAILY Referrals / Follow Up: Zeeshan Walter MD [Med Staff - Active Staff] - Within 2 Weeks Alejandro Jarquin Chi, MD [Primary Care Provider] - Within 2 Weeks Disposition Disposition (needs filled in before D/C Order can be placed): Assisted Facility Charges/Coding Visit Charges Inpatient E&M: 66200 Disch Hosp
--- NOTE | 2025-05-01 10:38 | CASEMGMT ---
Precert has been obtained. Physician updated and pt is ready for discharge today. 7000 convalescent form completed in [facility]. Discharge orders sent to [facility] via [employer]. Transportation arranged with [facility] for 1230 pickup via wheelchair van. RN DAVID met with pt and they are agreeable to discharge plan as stated above. Pt requested RN CM call her dtr to make aware. Notified Suzette at [phone]. Updated bedside nurse of discharge time. Disposition: [facility], skilled level of care under convalescent stay.
--- NOTE | 2025-05-01 10:38 | CASEMGMT ---
Precert has been obtained. Physician updated and pt is ready for discharge today. 7000 convalescent form completed in [facility]. Discharge orders sent to [facility] via [employer]. Transportation arranged with [facility] for 1230 pickup via wheelchair van. RN DAVID met with pt and they are agreeable to discharge plan as stated above. Pt requested RN CM call her dtr to make aware. Notified Suzette at [phone]. Updated bedside nurse of discharge time. Disposition: [facility], skilled level of care under convalescent stay.
== END 2025-05-01 13:00 | disposition skilled nursing facility (03) | DRG 544 ==
LOC: ED 23:41 → MS3 23:53
PROVIDERS: Admitting Provider Hospitalist; Emergency Provider Emergency Medicine; PCP Family Medicine Geriatric Medicine
DX: M80.021A Age-related osteoporosis with current pathological fracture, right humerus, initial encounter for fracture (principal); G62.9 Polyneuropathy, unspecified; I10 Essential (primary) hypertension; I34.1 Nonrheumatic mitral (valve) prolapse; M80.022A Age-related osteoporosis with current pathological fracture, left humerus, initial encounter for fracture; S00.83XA Contusion of other part of head, initial encounter; W01.0XXA Fall on same level from slipping, tripping and stumbling without subsequent striking against object, initial encounter; R53.81 Other malaise; Z79.899 Other long term (current) drug therapy; Y92.009 Unspecified place in unspecified non-institutional (private) residence as the place of occurrence of the external cause; R29.898 Other symptoms and signs involving the musculoskeletal system
CPT/HCPCS: 70450; 72125; 73030; 73060; 80048; 80076; 82306; 83735; 83970; 84100; 84443; 85025; 94668; 97116; 97162; 97166; 97530; 97535; 99285; A4216; J2405